=== PATIENT | female | born 1950 | race Two or more races ===

== ENCOUNTER 2020-06-26 09:57 | Outpatient (REF) | payer MEDICARE, SELFPAY ==
--- NOTE | 2020-06-26 | XR_ITS ---
EXAMINATION: XR LUMBOSACRAL SPINE WITH OBLIQUES CLINICAL INFORMATION: Lumbago with left sciatica. COMPARISON: Radiographs lumbar spine 05/11/2018 TECHNIQUE: The lumbar spine is imaged in 5 views FINDINGS: There is normal lumbar segmentation with 5 nonrib-bearing lumbar vertebrae. There is gentle levocurvature which may be positional. There is normal lumbar lordosis. Again, there are postoperative changes consistent with prior laminectomy L4-S1 with solid bridging bone effusion posterior elements. There is discal calcification L4-L5 and L5-S1 with mild stable disc narrowing. There is no interval vertebral compression or spondylolisthesis or interval focal disc narrowing. No destructive process. There is anterior vertebral spurring again seen L3-L4. The oblique view show no pars defects. The SI joints and visualized sacrum are unremarkable. IMPRESSION: 1. Postsurgical changes L4-S1. No acute bony abnormality. 2. No vertebral compression, spondylolisthesis, destructive process.
--- NOTE | 2020-06-26 | XR_ITS ---
EXAMINATION: XR HIP, LEFT CLINICAL INFORMATION: Pain hip. COMPARISON: Radiographs left hip 04/12/2017 TECHNIQUE: Two views of the left hip. FINDINGS: There is no fracture or dislocation or destructive process. No hip joint narrowing or erosive change or visible chondrocalcinosis. Left SI joint is unremarkable. There are chronic postoperative changes lower lumbar spine. IMPRESSION: Unremarkable left hip.
== END 2020-06-26 09:58 | disposition home or self-care (01) ==
LOC: HO.XRAY 09:57
PROVIDERS: PCP Internal Medicine; Visit Provider Internal Medicine
DX: M25.551 Pain in right hip (principal); M54.42 Lumbago with sciatica, left side
CPT/HCPCS: 72110; 73502

== ENCOUNTER 2021-01-02 09:11 | Outpatient (REF) | payer MEDICARE, SELFPAY ==
[2021-01-02 10:00] LABS: MANUAL DIFF FLAG NO
[2021-01-02 10:23] LABS: Estimated Average Glucose 146 mg/dL; Hemoglobin A1c % 6.7 %
[2021-01-02 10:25] LABS: Basophils Absolute Auto 0.1 X10*3/uL (0.0-0.2); Basophils Percent Auto 0.6 % (0-2); Eosinophils Absolute Auto 0.2 X10*3/uL (0.0-0.4); Eosinophils Percent Auto 2.3 % (0-4); Hematocrit 37.3 % (37-47); Hemoglobin 12.3 g/dl (12.0-16.0); Imm Gran Abs Auto 0.02 X10*3/uL (0.00-0.03); Imm Gran Pct Auto 0.2 % (0.0-0.4); Lymphocytes Absolute Auto 3.3 X10*3/uL (1.2-4.9); Lymphocytes Percent Auto 38.5 % (20-40); Mean Corpuscular Hemoglobin 32.1 pg (27.0-33.0); Mean Corpuscular Volume 97.4 fL (80-98); Mean Platelet Volume 10.4 fL (9.4-12.3); Monocytes Absolute Auto 0.6 X10*3/uL (0.1-1.2); Monocytes Percent Auto 6.6 % (2-11); Neutrophils Absolute Auto 4.5 X10*3/uL (2.0-8.3); Neutrophils Percent Auto 51.8 % (45-73); Platelet Count 267 X10*3/uL (160-400); Red Blood Count 3.83 X10*6/uL (4.20-5.50); Red Cell Distribution Width 14.1 % (11.0-16.0); White Blood Count 8.7 X10*3/uL (4.8-10.8)
[2021-01-02 10:33] LABS: Alanine Aminotransferase 12 U/L (0-31); Albumin Level 4.1 g/dL (3.5-5.0); Alkaline Phosphatase 109 U/L (39-117); Anion Gap 13 (12-20); Aspartate Amino Transferase 19 U/L (5-31); Bilirubin Total 0.4 mg/dL (0.0-1.0); Blood Urea Nitrogen 20 mg/dL (9-16); Calcium 9.3 mg/dL (8.4-10.2); Carbon Dioxide 27 mmol/L (22-29); Chloride 105 mmol/L (96-108); Cholesterol 154 mg/dL; Estimated Glomerular Filt Rate > 60; Glucose Fasting 132 mg/dL (60-99); HDL Cholesterol 52 mg/dL; LDL Cholesterol Calculated 82 mg/dl; Potassium 4.4 mmol/L (3.3-5.1); Sodium 141 mmol/L (135-145); Total Protein 7.4 g/dL (6.5-8.0); Triglycerides 101 mg/dL
[2021-01-06 12:47] LABS: Vitamin D 25-OH, D2 <4 ng/mL; Vitamin D 25-OH, D3 33 ng/mL; Vitamin D 25-OH, Total 33 ng/mL (30-100)
== END 2021-01-02 09:12 | disposition home or self-care (01) ==
LOC: HO.LAB 09:11
PROVIDERS: PCP Internal Medicine; Visit Provider Internal Medicine
DX: E11.9 Type 2 diabetes mellitus without complications (principal); E78.5 Hyperlipidemia, unspecified; E55.9 Vitamin D deficiency, unspecified; M51.36 Other intervertebral disc degeneration, lumbar region
CPT/HCPCS: 36415; 80053; 80061; 82306; 83036; 85025

== ENCOUNTER 2021-01-28 09:48 | Outpatient (REF) | payer MEDICARE, SELFPAY | END 2021-01-28 09:49 | disposition home or self-care (01) | LOC: HO.LAB 09:48 | PROVIDERS: PCP Internal Medicine; Visit Provider Internal Medicine | DX: Z20.822 Contact with and (suspected) exposure to COVID-19 (principal) | CPT/HCPCS: C9803; U0003; U0005 ==

== ENCOUNTER 2021-03-24 11:23 | Emergency (ER) | payer MEDICARE, SELFPAY ==
--- NOTE | ~2021-03-24 | CT_ITS ---
EXAMINATION: CT HEAD WITHOUT CONTRAST CLINICAL INFORMATION: Headache COMPARISON: None TECHNIQUE: Contiguous axial imaging was performed from the skull base to vertex without intravenous administration of contrast. This CT examination was performed using dose optimization techniques as appropriate, variously including the following: *Automated exposure control *Adjustment of mA and/or kV according to patient size (this includes techniques or standardized protocols for targeted exams where dose is matched to indication/reason for exam; i.e. extremities or head) *Use of iterative reconstruction technique DLP: 678 mGy-cm FINDINGS: There is right frontoparietal isodense subdural hematoma with acute hemorrhagic component in the dependent portion along anterior and posterior midline falx and right posterior convexity. There is effacement of the cortical sulci. There is minimal right to left midline shift measuring 3 mm hemorrhage is seen within the lateral ventricles. The left extra axial intra-axial space is normal. The lateral ventricles are symmetrical in size and configuration with mild mass effect on the right lateral ventricle. There is no acute infarct in evolution. Bone windows reveal no calvarial abnormality. There is no scalp soft tissue abnormality. Bilateral paranasal sinuses and mastoid air cells are well-aerated. CT/CT head/brain wo con IMPRESSION: Right frontoparietal isodense subdural hematoma suggestive of a subacute onset. There is acute hemorrhagic component seen along the anterior and posterior right para midline falx. There is mild right to left midline shift with mild mass effect on the right lateral ventricle. There is no intraparenchymal bleed. There is no acute infarct.
[2021-03-24 12:10] VITALS: BP 151/80; PULSE 66; RESP 18; TEMP 36.6; O2SAT 99; BMI 22.6
--- NOTE | 2021-03-24 13:33 | ED_ITS ---
HPI - Headache General Chief Complaint: Headache Stated Complaint: headache Time Seen by Provider: 03/24/21 13:33 Source: patient History of Present Illness HPI Narrative: this is 70 years old female presented to the emergency department with a chief complaint of a headache x3 weeks. About 3 weeks ago she had a trivial injury of the head with the car door. Patient denies any nausea vomiting MD elicited complaint: headache Pertinent past history: recent trauma Onset (ago): week(s) (3) Onset description: gradually Location: right and temporal Severity: moderate Quality & Timing: aching Exacerbating factors: none Relieving factors: nothing Related Data Home Medications Medication Instructions Recorded Confirmed cholecalciferol (vitamin D3) 25 25 mcg PO DAILY 10/15/20 01/28/21 mcg (1,000 unit) capsule Previous Rx's Medication Instructions Recorded mirtazapine 7.5 mg tablet 7.5 mg PO BEDTIME #90 tab 01/10/21 divalproex 125 mg tablet,delayed 125 mg PO DAILY 90 Days #90 tab 01/28/21 release pioglitazone 30 mg tablet 30 mg PO DAILY #90 tab 02/27/21 oxycodone-acetaminophen 5 mg-325 1 tab PO BID 28 Days #56 tab 03/18/21 mg tablet losartan 50 mg tablet 50 mg PO DAILY #90 tab 03/21/21 Allergies Allergy/AdvReac Type Severity Reaction Status Date / Time ibuprofen [IBUPROFEN] Allergy Intermediate NAUSEA & Verified 01/28/21 09:28 VOMITING, involuntary movements lisinopril Allergy Intermediate stomach Verified 01/28/21 09:28 upset, abd pain meloxicam Allergy Intermediate involuntary Verified 01/28/21 09:28 movements metformin Allergy Intermediate diarrhea Verified 01/28/21 09:28 oseltamivir [From TAMIFLU] Allergy Intermediate NAUSEA & Verified 01/28/21 09:28 VOMITING tizanidine Allergy Intermediate involuntary Verified 01/28/21 09:28 movements ketorolac [From TORADOL] AdvReac Mild HYPERACTIVE Verified 01/28/21 09:28 MUSCLE TREMORS Review of Systems Review of Systems: Yes all other systems are reviewed and are negative Cardiovascular: Cardiovascular: Reports no additional cardiovascular complaints Respiratory: Respiratory: Reports no additional respiratory complaints Gastrointestinal: Gastrointestinal: Denies abdominal pain PMFSH Past Medical History Attestation statement: The following information was validated with the patient. Medical History Diabetes mellitus Dyslipidemia Essential hypertension Lumbar degenerative disc disease Seizures Surgical History Back pain with history of spinal surgery History of cataract surgery History of laparoscopic cholecystectomy Family History Family History Father Medical history unknown Mother Ovarian cancer Hypertension Maternal Aunt Breast cancer Social History Social History Alcohol intake: never Patient Tobacco Use Status: Never used Tobacco Use of substances other than those prescribed or required for medical reasons: No Advance Directives: No Advance Directives Information Provided: No Physical Exam Vital Signs: Vital Signs: Last Vital Signs Temp 97.8 F 03/24/21 12:10 Pulse 66 03/24/21 13:43 Resp 18 03/24/21 13:43 BP 237/110 H 03/24/21 13:43 Pulse Ox 98 03/24/21 13:43 Body Mass Index 22.6 Const: General: cooperative and healthy appearing Orientation/consciousness: oriented to person, oriented to place, oriented to time and patient oriented x3 HENMT: Head: Yes normal to inspection and Yes No palpable skull fracture present Eyes: General: appearance normal, both eyes and all related structures Visual Jarrett: normal visual jarrett by confrontation Neck: Neck: Yes normal visual inspection and Yes full ROM Chest: Chest palpation & inspection: normal inspection of the chest and normal palpation of entire chest wall Resp: Effort & Inspection: normal respiratory effort and able to speak in complete sentences Cardio: Jugular venous distension: no JVD Rate: regular rate GI: Inspection: Yes normal to inspection and No Abdominal wall edema Palpation (GI): nontender and no guarding Skin: General skin exam: no rashes or lesions noted, elasticity normal and turgor normal Neuro: General: oriented to person, oriented to place, oriented to time and patient oriented x3 Course Reevaluation(s) Reevaluation #1: patient as a subdural hematoma I spoke with [facility] neurosurgical service the patient was accepted in transfer MDM - Headache Lab Data Result diagrams: 03/24/21 13:42 03/24/21 13:42 Labs: Lab Results 03/24/21 03/24/21 03/24/21 Range/Units 13:42 13:42 13:42 WBC 11.1 H (4.8-10.8) X10*3/uL RBC 3.60 L (4.20-5.50) X10*6/uL Hgb 11.4 L (12.0-16.0) g/dl Hct 35.1 L (37-47) % MCV 97.5 (80-98) fL MCH 31.7 (27.0-33.0) pg MCHC 32.5 (31.0-35.0) g/dl RDW 13.7 (11.0-16.0) % Plt Count 293 (160-400) X10*3/uL MPV 9.8 (9.4-12.3) fL Immature Gran % (Auto) 0.3 (0.0-0.4) % Neut % (Auto) 50.1 (45-73) % Lymph % (Auto) 40.8 H (20-40) % [place] % (Auto) 6.0 (2-11) % Eos % (Auto) 2.3 (0-4) % Baso % (Auto) 0.5 (0-2) % Lymph # (Auto) 4.5 (1.2-4.9) X10*3/uL [place] # (Auto) 0.7 (0.1-1.2) X10*3/uL Eos # (Auto) 0.3 (0.0-0.4) X10*3/uL Baso # (Auto) 0.1 (0.0-0.2) X10*3/uL Abs Immat Gran (auto) 0.03 (0.00-0.03) X10*3/uL Absolute Neuts (auto) 5.6 (2.0-8.3) X10*3/uL Absolute Nucleated RBC 0.000 (0.0-0.012) X10*3/uL Nucleated RBC % (auto) 0.0 (0.0-0.2) /100WBC PT 12.0 (10.8-13.0) SEC INR 1.0 (0.9-1.1) APTT 39.4 H (24.1-38.0) SEC Sodium 142 (135-145) mmol/L Potassium 3.6 (3.3-5.1) mmol/L Chloride 109 H (96-108) mmol/L Carbon Dioxide 27 (22-29) mmol/L Anion Gap 10 L (12-20) BUN 17 H (9-16) mg/dL Creatinine 0.87 (0.5-1.4) mg/dL Estim Creat Clear Calc 40.4 Estimated GFR > 60 Random Glucose 120 H (60-115) mg/dL Calcium 9.4 (8.4-10.2) mg/dL Total Bilirubin < 0.2 (0.0-1.0) mg/dL AST 19 (5-31) U/L ALT 11 (0-31) U/L Alkaline Phosphatase 108 (39-117) U/L Total Protein 7.6 (6.5-8.0) g/dL Albumin 4.2 (3.5-5.0) g/dL Critical Care Time Critical Care Time Critical Care Time: Yes Total Critical Care Time: 30 Attestation: time spent with the patient, family, arranging transfer Discharge Plan Discharge Prescriptions: No Action mirtazapine 7.5 mg tablet 7.5 mg PO BEDTIME Qty: 90 RF: 2 pioglitazone 30 mg tablet 30 mg PO DAILY Qty: 90 RF: 3 oxycodone-acetaminophen 5-325 mg tablet 1 tab PO BID 28 Days Qty: 56 RF: 0 losartan 50 mg tablet 50 mg PO DAILY Qty: 90 RF: 2 cholecalciferol (vitamin D3) 25 mcg (1,000 unit) capsule 25 mcg PO DAILY RF: 0 divalproex [Depakote] 125 mg tablet,delayed release (DR/EC) 125 mg PO DAILY 90 Days Qty: 90 RF: 1
[2021-03-24 13:43] VITALS: BP 237/110; PULSE 66; RESP 18; O2SAT 98
[2021-03-24 13:51] LABS: MANUAL DIFF FLAG NO
[2021-03-24 13:55] LABS: Basophils Absolute Auto 0.1 X10*3/uL (0.0-0.2); Basophils Percent Auto 0.5 % (0-2); Eosinophils Absolute Auto 0.3 X10*3/uL (0.0-0.4); Eosinophils Percent Auto 2.3 % (0-4); Hematocrit 35.1 % (37-47); Hemoglobin 11.4 g/dl (12.0-16.0); Imm Gran Abs Auto 0.03 X10*3/uL (0.00-0.03); Imm Gran Pct Auto 0.3 % (0.0-0.4); Lymphocytes Absolute Auto 4.5 X10*3/uL (1.2-4.9); Lymphocytes Percent Auto 40.8 % (20-40); Mean Corpuscular HGB Conc 32.5 g/dl (31.0-35.0); Mean Corpuscular Hemoglobin 31.7 pg (27.0-33.0); Mean Corpuscular Volume 97.5 fL (80-98); Mean Platelet Volume 9.8 fL (9.4-12.3); Monocytes Absolute Auto 0.7 X10*3/uL (0.1-1.2); Neutrophils Absolute Auto 5.6 X10*3/uL (2.0-8.3); Neutrophils Percent Auto 50.1 % (45-73); Platelet Count 293 X10*3/uL (160-400); Red Cell Distribution Width 13.7 % (11.0-16.0); White Blood Count 11.1 X10*3/uL (4.8-10.8)
[2021-03-24 14:00] LABS: Partial Thromboplastin Time 39.4 SEC (24.1-38.0)
[2021-03-24 14:18] LABS: Alanine Aminotransferase 11 U/L (0-31); Albumin Level 4.2 g/dL (3.5-5.0); Alkaline Phosphatase 108 U/L (39-117); Anion Gap 10 (12-20); Aspartate Amino Transferase 19 U/L (5-31); Blood Urea Nitrogen 17 mg/dL (9-16); Calcium 9.4 mg/dL (8.4-10.2); Carbon Dioxide 27 mmol/L (22-29); Chloride 109 mmol/L (96-108); Creatinine Clr Calc Pharmacy 40.4; Estimated Glomerular Filt Rate > 60; Glucose Random 120 mg/dL (60-115); Potassium 3.6 mmol/L (3.3-5.1); Sodium 142 mmol/L (135-145); Total Protein 7.6 g/dL (6.5-8.0)
[2021-03-24 14:40] VITALS: BP 207/91; PULSE 73; RESP 10; O2SAT 100
[2021-03-24] MEDS: oxyCODONE HCl Immed Release 5 MG TABLET PO (14:41)
[2021-03-24 14:42] VITALS: BP 207/91; PULSE 73
[2021-03-24] MEDS: cloNIDine HCL 0.1 MG TABLET PO (14:42)
--- NOTE | 2021-03-24 15:45 | PC.NURSE ---
CALLED FOR REPORT AT [facility], EXPECTING CALL BACK.
[2021-03-24 15:58] VITALS: BP 186/100; PULSE 78; RESP 12; O2SAT 98
[2021-03-24 17:00] LABS: Bilirubin Total 0.3 mg/dL (0.0-1.0)
== END 2021-03-24 16:30 | disposition short-term general hospital (02) ==
PROVIDERS: Emergency Provider Emergency Medicine; PCP Internal Medicine
DX: S06.5X0A Traumatic subdural hemorrhage without loss of consciousness, initial encounter (principal); I10 Essential (primary) hypertension; E11.9 Type 2 diabetes mellitus without complications; Z79.899 Other long term (current) drug therapy; W22.8XXA Striking against or struck by other objects, initial encounter; Y93.9 Activity, unspecified; Y92.810 Car as the place of occurrence of the external cause; Y99.9 Unspecified external cause status
CPT/HCPCS: 36415; 70450; 80053; 85025; 85610; 85730; 99285; 99291

== ENCOUNTER 2021-05-22 08:24 | Outpatient (REF) | payer MEDICARE, SELFPAY ==
[2021-05-22 08:52] LABS: MANUAL DIFF FLAG NO
[2021-05-22 08:58] LABS: Basophils Absolute Auto 0.1 X10*3/uL (0.0-0.2); Basophils Percent Auto 0.7 % (0-2); Eosinophils Absolute Auto 0.3 X10*3/uL (0.0-0.4); Eosinophils Percent Auto 3.6 % (0-4); Hemoglobin 11.4 g/dl (12.0-16.0); Imm Gran Abs Auto 0.02 X10*3/uL (0.00-0.03); Imm Gran Pct Auto 0.3 % (0.0-0.4); Lymphocytes Absolute Auto 3.4 X10*3/uL (1.2-4.9); Lymphocytes Percent Auto 46.7 % (20-40); Mean Corpuscular HGB Conc 32.6 g/dl (31.0-35.0); Mean Corpuscular Hemoglobin 31.5 pg (27.0-33.0); Mean Corpuscular Volume 96.7 fL (80-98); Monocytes Absolute Auto 0.4 X10*3/uL (0.1-1.2); Monocytes Percent Auto 5.6 % (2-11); Neutrophils Absolute Auto 3.1 X10*3/uL (2.0-8.3); Neutrophils Percent Auto 43.1 % (45-73); Platelet Count 279 X10*3/uL (160-400); Red Blood Count 3.62 X10*6/uL (4.20-5.50); Red Cell Distribution Width 14.9 % (11.0-16.0); White Blood Count 7.2 X10*3/uL (4.8-10.8)
[2021-05-22 09:37] LABS: Valproate 15.8 mcg/mL (50.0-100.0)
[2021-05-22 09:41] LABS: Alanine Aminotransferase 10 U/L (0-31); Alkaline Phosphatase 95 U/L (39-117); Anion Gap 9 (12-20); Aspartate Amino Transferase 18 U/L (5-31); Bilirubin Total 0.4 mg/dL (0.0-1.0); Blood Urea Nitrogen 15 mg/dL (9-16); Calcium 9.3 mg/dL (8.4-10.2); Carbon Dioxide 27 mmol/L (22-29); Chloride 111 mmol/L (96-108); Cholesterol 169 mg/dL; Estimated Glomerular Filt Rate > 60; Glucose Fasting 106 mg/dL (60-99); HDL Cholesterol 52 mg/dL; LDL Cholesterol Calculated 100 mg/dl; Potassium 3.8 mmol/L (3.3-5.1); Sodium 143 mmol/L (135-145); Total Protein 7.1 g/dL (6.5-8.0); Triglycerides 88 mg/dL
[2021-05-22 10:43] LABS: Creatinine Urine 168.69 mg/dL; Microalbum/Creatinine Ratio Ur 9.4 ug/mg cr
[2021-05-26 12:41] LABS: Vitamin D 25-OH, D2 <4 ng/mL; Vitamin D 25-OH, D3 35 ng/mL; Vitamin D 25-OH, Total 35 ng/mL (30-100)
== END 2021-05-22 08:25 | disposition home or self-care (01) ==
LOC: HO.LAB 08:24
PROVIDERS: PCP Internal Medicine; Visit Provider Internal Medicine
DX: R56.9 Unspecified convulsions (principal); E55.9 Vitamin D deficiency, unspecified; E11.9 Type 2 diabetes mellitus without complications; D64.9 Anemia, unspecified; E78.5 Hyperlipidemia, unspecified
CPT/HCPCS: 36415; 80053; 80061; 80164; 82043; 82306; 85025

== ENCOUNTER → 2021-06-04 09:00 | Outpatient (REF) | payer MEDICARE, SELFPAY ==
--- NOTE | 2021-06-04 09:09 | ECG_ITS ---
Test Reason : CHEST PAIN Blood Pressure : / mmHG Vent. Rate : 058 BPM Atrial Rate : 058 BPM P-R Int : 154 ms QRS Dur : 078 ms QT Int : 438 ms P-R-T Axes : 049 -01 005 degrees QTc Int : 429 ms Sinus bradycardia Minimal voltage criteria for LVH, may be normal variant ( R in aVL ) Borderline ECG When compared with ECG of 14-MAY-2019 13:02, No significant change was found Referred By: Lena Cheung Electronically Signed By:JESENIA BRAVO
== END ==
LOC: HO.CARD 09:00
PROVIDERS: PCP Internal Medicine; Visit Provider Internal Medicine
DX: R07.9 Chest pain, unspecified (principal)
CPT/HCPCS: 93005

== ENCOUNTER 2021-08-15 11:21 | Emergency (ER) | payer MEDICARE, SELFPAY ==
--- NOTE | ~2021-08-15 | CT_ITS ---
EXAMINATION: CT HEAD WITHOUT CONTRAST CLINICAL INFORMATION: Right-sided headache x2 weeks. Right subdural 02/2021. Rule out bleed. COMPARISON: CT head 03/24/2021 TECHNIQUE: Contiguous axial imaging was performed from the skull base to vertex without intravenous administration of contrast. This CT examination was performed using dose optimization techniques as appropriate, variously including the following: *Automated exposure control *Adjustment of mA and/or kV according to patient size (this includes techniques or standardized protocols for targeted exams where dose is matched to indication/reason for exam; i.e. extremities or head) *Use of iterative reconstruction technique DLP: 695 mGy-cm FINDINGS: There is a subtle hypoattenuating right frontal subdural collection which measures approximately 25 Hounsfield units may represent late subacute to chronic subdural hemorrhage. There is minimal to no mass effect associated with this collection. There is no other evidence of acute intracranial hemorrhage or territorial infarction. No abnormal mass effect or midline shift is seen. Webb to white matter differentiation is well preserved. The ventricles are normal in size. There is no abnormal attenuation within the brain parenchyma. There is a [place] hole in the right temporal bone which is new from the prior. There is chronic mild thinning of the right greater sphenoid which is unchanged from multiple prior studies. There are degenerative changes of the right greater than left temporomandibular joints.. The mastoid air cells and visualized portions of the paranasal sinuses are well aerated. CT/CT head/brain wo con IMPRESSION: Subtle hypoattenuating fluid collection to the right of the falx overlying the right frontal lobe measuring approximately 25 Hounsfield units attenuation. This does correspond with the region of previously seen subdural hematoma from the prior study of 03/24/2021. While this could possibly represent degenerating blood products from the previous hemorrhage, a recurrent late subacute to chronic hemorrhage is a consideration as well. Findings were communicated with Cristian LAGUNA, by Tapan Valentin M.D. at approximately 1553 hours.
[2021-08-15 11:56] VITALS: BP 198/90; PULSE 72; RESP 8; TEMP 36.7; O2SAT 98; BMI 24.6
[2021-08-15 14:29] VITALS: BP 209/109; PULSE 72; RESP 20; TEMP 36.7
[2021-08-15 14:41] LABS: MANUAL DIFF FLAG NO
[2021-08-15 14:42] LABS: Basophils Absolute Auto 0.1 X10*3/uL (0.0-0.2); Basophils Percent Auto 0.6 % (0-2); Eosinophils Absolute Auto 0.2 X10*3/uL (0.0-0.4); Eosinophils Percent Auto 2.4 % (0-4); Hematocrit 35.6 % (37.0-47.0); Hemoglobin 11.8 g/dl (12.0-16.0); Imm Gran Abs Auto 0.02 X10*3/uL (0.00-0.03); Imm Gran Pct Auto 0.2 % (0.0-0.4); Lymphocytes Absolute Auto 4.1 X10*3/uL (1.2-4.9); Lymphocytes Percent Auto 40.7 % (20-40); Mean Corpuscular HGB Conc 33.1 g/dl (31.0-35.0); Mean Corpuscular Hemoglobin 32.1 pg (27.0-33.0); Mean Corpuscular Volume 96.7 fL (80.0-98.0); Mean Platelet Volume 9.9 fL (9.4-12.3); Monocytes Absolute Auto 0.6 X10*3/uL (0.1-1.2); Monocytes Percent Auto 5.4 % (2-11); Neutrophils Absolute Auto 5.2 x10*3/uL (2.0-8.3); Neutrophils Percent Auto 50.7 % (45-73); Platelet Count 291 X10*3/uL (160-400); Red Blood Count 3.68 X10*6/uL (4.20-5.50); Red Cell Distribution Width 13.9 % (11.0-16.0); White Blood Count 10.2 X10*3/uL (4.8-10.8)
[2021-08-15] MEDS: HYDROmorphone HCl 0.5 MG/0.5 ML SYRINGE IVPUSH (14:46)
[2021-08-15] MEDS: Metoclopramide HCl 10 MG/2 ML VIAL IVPUSH (14:46)
[2021-08-15] MEDS: diphenhydrAMINE HCL 50 MG/ML VIAL 25 MG IVPUSH (14:46)
[2021-08-15 14:50] LABS: Partial Thromboplastin Time 39.6 SEC (24.1-38.0)
[2021-08-15 15:03] LABS: Alanine Aminotransferase 14 U/L (0-31); Alkaline Phosphatase 110 U/L (39-117); Anion Gap 12 (12-20); Aspartate Amino Transferase 19 U/L (5-31); Bilirubin Total 0.3 mg/dL (0.0-1.0); Blood Urea Nitrogen 15 mg/dL (9-16); Calcium 9.1 mg/dL (8.4-10.2); Carbon Dioxide 26 mmol/L (22-29); Chloride 108 mmol/L (96-108); Creatinine Clr Calc Pharmacy 61.2; Estimated Glomerular Filt Rate > 60; Glucose Random 109 mg/dL (60-115); Potassium 3.6 mmol/L (3.3-5.1); Sodium 142 mmol/L (135-145); Total Protein 7.3 g/dL (6.5-8.0)
[2021-08-15 15:23] VITALS: BP 164/78
--- NOTE | 2021-08-15 17:26 | ED_ITS ---
HPI - Headache General Chief Complaint: Headache Stated Complaint: rt side head pain Time Seen by Provider: 08/15/21 14:08 Source: patient Mode of arrival: ambulatory Limitations: language barrier (Chilean speaking only) History of Present Illness HPI Narrative: 71-year-old female who presents emergency department for evaluation right-sided headache x2 weeks. The patient was seen here in the emergency department on April 23, 2021 for headache times 3 weeks and was found to have a subdural hematoma transferred to [facility] where she had it drained. The patient states she has had 1 follow-up visit with her neurosurgeon and told that she was fine and did not need any further management. Patient states over the past 2 weeks. The patient cannot describe the character of the pain but she states that the pain is intermittent and is 9/10 at its worst. She denied any associated nausea, vomiting, weakness, numbness, loss of bowel or bladder control. She has been taking oxycodone with no relief for pain. she denied fever, chills, cough, rhinorrhea, neck pain, chest pain, shortness of breath, abdominal pain, frequency, urgency or dysuria. Related Data Home Medications Medication Instructions Recorded Confirmed cholecalciferol (vitamin D3) 25 25 mcg PO DAILY 10/15/20 06/03/21 mcg (1,000 unit) capsule Previous Rx's Medication Instructions Recorded pioglitazone 30 mg tablet 30 mg PO DAILY #90 tab 02/27/21 losartan 50 mg tablet 50 mg PO DAILY #90 tab 03/21/21 mirtazapine 15 mg tablet 15 mg PO BEDTIME 90 Days #90 tab 04/05/21 lorazepam 0.5 mg tablet 0.5 mg PO BEDTIME PRN 20 Days #20 06/03/21 tab sumatriptan succinate 25 mg tablet 25 mg PO Q2-4H PRN 30 Days #9 tab 06/14/21 divalproex 125 mg tablet,delayed 125 mg PO DAILY 90 Days #90 tab 07/22/21 release (Depakote) oxycodone-acetaminophen 5 mg-325 1 tab PO BID 28 Days #56 tab 07/22/21 mg tablet metoclopramide HCl 10 mg tablet 10 mg PO Q6H PRN #14 tab 08/15/21 (Reglan) Allergies Allergy/AdvReac Type Severity Reaction Status Date / Time ibuprofen [IBUPROFEN] Allergy Intermediate NAUSEA & Verified 08/15/21 11:56 VOMITING, involuntary movements lisinopril Allergy Intermediate stomach Verified 08/15/21 11:56 upset, abd pain meloxicam Allergy Intermediate involuntary Verified 08/15/21 11:56 movements metformin Allergy Intermediate diarrhea Verified 08/15/21 11:56 oseltamivir [From TAMIFLU] Allergy Intermediate NAUSEA & Verified 08/15/21 11:56 VOMITING tizanidine Allergy Intermediate involuntary Verified 08/15/21 11:56 movements ketorolac [From TORADOL] AdvReac Mild HYPERACTIVE Verified 08/15/21 11:56 MUSCLE TREMORS Review of Systems Review of Systems: Yes all other systems are reviewed and are negative [facility] Past Medical History Medical History Diabetes mellitus Dyslipidemia Essential hypertension Insomnia Lumbar degenerative disc disease Seizures Subdural hematoma Surgical History Back pain with history of spinal surgery H/O brain surgery History of cataract surgery History of laparoscopic cholecystectomy Family History Family History Father Medical history unknown Mother Ovarian cancer Hypertension Maternal Aunt Breast cancer Social History Social History Housing: House Alcohol intake: never Patient Tobacco Use Status: Never used Tobacco e-Cigarette/Vaping Use: Never Used Second Hand Smoke Exposure: No Use of substances other than those prescribed or required for medical reasons: No Advance Directives: No service: No Current occupational status: retired Physical Exam Vital Signs: Vital Signs: Last Vital Signs Temp 98.0 F 08/15/21 14:29 Pulse 72 08/15/21 14:29 Resp 20 08/15/21 14:29 BP 164/78 H 08/15/21 15:23 Pulse Ox 98 08/15/21 11:56 Body Mass Index 24.6 Const: General: cooperative and no acute distress Orientation/consciousness: oriented to person and oriented to place Limitations: no limitations HENMT: Head: Yes normal to inspection, Yes normocephalic and Yes atraumatic Ears: external ears normal General nose exam: Normal external nose present Face and sinus: Yes normal facial exam Mouth: Normal oral and palatal mucosa present Throat: Yes posterior oropharynx normal Eyes: General: appearance normal, both eyes and all related structures Pupils: Equal, round and reactive pupils present Neck: Neck: Yes normal visual inspection, Yes no lymphadenopathy, Yes trachea midline and Yes supple Chest: Chest palpation & inspection: normal inspection of the chest and normal palpation of entire chest wall Resp: Effort & Inspection: normal respiratory effort and able to speak in complete sentences Auscultation: clear to auscultation bilaterally Cardio: Rate: regular rate Rhythm: regular rhythm Heart sounds: S1 normal heart sound present, S2 normal heart sound present and no murmurs GI: Inspection: Yes normal to inspection Palpation (GI): Soft to palpation, nontender and no guarding Auscultation: normal bowel sounds : General: Yes no CVA tenderness Back/Spine/Pelvis: Back: no CVA tenderness Skin: General skin exam: no rashes or lesions noted Neuro: General: oriented to person and oriented to place Cranial nerves: Yes CN's II-XII intact bilaterally and Yes Equal, round and reactive pupils present Cognition (Neuro): normal cognition Motor exam (neuro): 5/5 motor strength present throughout Extrem: General: Yes normal to inspection Psych: Appearance: grossly normal Speech and movement: Normal speech and movement present Affect: normal affect Attitude: cooperative Thought process: Normal thought process present Thought content: Normal thought content present Course Course Course Narrative: 71-year-old female with a history subdural hematoma on 03/24/2021 1st diagnosed here and then evacuated at [facility] who presents emergency department for evaluation of 2 weeks of intermittent, diffuse, severe headache 9 out 10. The patient's physical examination was unremarkable. I did order a laboratory evaluation to include CBC, CMP, PT/INR, PTT and CT scan of the brain. Patient's headache was treated with Dilaudid 0.5 mg IV, Benadryl 25 mg IV and her regular and 10 mg IV. 1737: Laboratory evaluation: CBC revealed mild anemia with an H&H of 11.8 and 35.6, consistent with her baseline. PT/ INR were normal. PTT was elevated at 39.6. CMP was normal. CT scan of the brain without IV contrast revealed subtle hypo to any awaiting fluid collection to the right of falx overlying the right frontal lobe. This does correspond with the region of previous we seen subdural hematoma from the prior study. The differential from the radiologist was possible degenerating blood products verses a recurring late subacute or chronic hemorrhage. 1758: Patient is feeling significantly better after the above treatment. The patient will be discharged home with the following regimen every 6 hours for her headaches: Reglan 10 mg orally, Benadryl 50 mg orally, extra- strength Tylenol 1000 mg orally. She is also given a prescription for oxycodone 5 mg every 4-6 hours as needed for pain not relieved by this regimen. She was advised to follow-up with her neurosurgeon in [address] to repeat her CT scan. MDM - Headache Lab Data Result diagrams: 08/15/21 14:37 08/15/21 14:37 Labs: Lab Results 08/15/21 08/15/21 08/15/21 Range/Units 14:37 14:37 14:37 WBC 10.2 (4.8-10.8) X10*3/uL RBC 3.68 L (4.20-5.50) X10*6/uL Hgb 11.8 L (12.0-16.0) g/dl Hct 35.6 L (37.0-47.0) % MCV 96.7 (80.0-98.0) fL MCH 32.1 (27.0-33.0) pg MCHC 33.1 (31.0-35.0) g/dl RDW 13.9 (11.0-16.0) % Plt Count 291 (160-400) X10*3/uL MPV 9.9 (9.4-12.3) fL Immature Gran % (Auto) 0.2 (0.0-0.4) % Neut % (Auto) 50.7 (45-73) % Lymph % (Auto) 40.7 H (20-40) % [place] % (Auto) 5.4 (2-11) % Eos % (Auto) 2.4 (0-4) % Baso % (Auto) 0.6 (0-2) % Lymph # (Auto) 4.1 (1.2-4.9) X10*3/uL [place] # (Auto) 0.6 (0.1-1.2) X10*3/uL Eos # (Auto) 0.2 (0.0-0.4) X10*3/uL Baso # (Auto) 0.1 (0.0-0.2) X10*3/uL Abs Immat Gran (auto) 0.02 (0.00-0.03) X10*3/uL Absolute Neuts (auto) 5.2 (2.0-8.3) x10*3/uL Absolute Nucleated RBC 0.000 (0.0-0.012) X10*3/uL Nucleated RBC % (auto) 0.0 (0.0-0.2) /100WBC PT 11.0 (9.9-13.0) SEC INR 1.0 (0.9-1.1) APTT 39.6 H (24.1-38.0) SEC Sodium 142 (135-145) mmol/L Potassium 3.6 (3.3-5.1) mmol/L Chloride 108 (96-108) mmol/L Carbon Dioxide 26 (22-29) mmol/L Anion Gap 12 (12-20) BUN 15 (9-16) mg/dL Creatinine 0.63 (0.5-1.4) mg/dL Estim Creat Clear Calc 61.2 Estimated GFR > 60 Random Glucose 109 (60-115) mg/dL Calcium 9.1 (8.4-10.2) mg/dL Total Bilirubin 0.3 (0.0-1.0) mg/dL AST 19 (5-31) U/L ALT 14 (0-31) U/L Alkaline Phosphatase 110 (39-117) U/L Total Protein 7.3 (6.5-8.0) g/dL Albumin 4.0 (3.5-5.0) g/dL Discharge Plan Discharge Clinical Impression: Headache Patient Disposition: Home, Self-Care Instructions: Acute Headache (ED) Additional Instructions: Your blood work was normal. The CT scan of your head without contrast showed significant improvement compared to your CT scan on 03/24/2021 I want you to take the following 3 medications together every 6 hours as needed for headache, nausea or vomiting. Reglan (metoclopramide) in 10 mg, 1 pill Benadryl 25 mg, 2 pills Extra-strength Tylenol 1 g pills, 2 pills. After you take these medications, lie down in a dark quiet room and try to fall asleep. These medications will make you sleepy, do not drive or work after taking these medications. Follow-up with your neurosurgeon in 2 weeks to get a repeat CT scan of your head to make sure that the bleeding is not return. Please return to the emergency department if your symptoms get worse or if you develop any symptoms that are concerning to you. Please review this radiology impression with your neurosurgeon IMPRESSION: Subtle hypoattenuating fluid collection to the right of the falx overlying the right frontal lobe measuring approximately 25 Hounsfield units attenuation. This does correspond with the region of previously seen subdural hematoma from the prior study of 03/24/2021. While this could possibly represent degenerating blood products from the previous hemorrhage, a recurrent late subacute to chronic hemorrhage is a consideration as well. Prescriptions: New metoclopramide HCl [Reglan] 10 mg tablet 10 mg PO Q6H PRN (Reason: nausea and vomiting) Qty: 14 RF: 0 No Action pioglitazone 30 mg tablet 30 mg PO DAILY Qty: 90 RF: 3 losartan 50 mg tablet 50 mg PO DAILY Qty: 90 RF: 2 sumatriptan succinate 25 mg tablet 25 mg PO Q2-4H PRN (Reason: migraine headache) 30 Days Qty: 9 RF: 1 divalproex [Depakote] 125 mg tablet,delayed release (DR/EC) 125 mg PO DAILY 90 Days Qty: 90 RF: 1 oxycodone-acetaminophen 5-325 mg tablet 1 tab PO BID 28 Days Qty: 56 RF: 0 cholecalciferol (vitamin D3) 25 mcg (1,000 unit) capsule 25 mcg PO DAILY RF: 0 lorazepam 0.5 mg tablet 0.5 mg PO BEDTIME PRN (Reason: anxiety) 20 Days Qty: 20 RF: 0 mirtazapine 15 mg tablet 15 mg PO BEDTIME 90 Days Qty: 90 RF: 1
== END 2021-08-15 18:29 | disposition home or self-care (01) ==
PROVIDERS: Emergency Provider Emergency Medicine Emergency Medical Services; PCP Internal Medicine
DX: R51.9 Headache, unspecified (principal); D64.9 Anemia, unspecified; Z79.899 Other long term (current) drug therapy
CPT/HCPCS: 36415; 70450; 80053; 85025; 85610; 85730; 96374; 96375; 99284; J1170; J1200; J2765

== ENCOUNTER 2021-11-09 08:55 | Emergency (ER) | payer MEDICARE, SELFPAY ==
--- NOTE | ~2021-11-09 | CT_ITS ---
EXAMINATION: CT HEAD WITHOUT CONTRAST CLINICAL INFORMATION: Severe headache COMPARISON: Previous head CT most recent July 2021 TECHNIQUE: Contiguous axial imaging was performed from the skull base to vertex without intravenous administration of contrast. This CT examination was performed using dose optimization techniques as appropriate, variously including the following: *Automated exposure control *Adjustment of mA and/or kV according to patient size (this includes techniques or standardized protocols for targeted exams where dose is matched to indication/reason for exam; i.e. extremities or head) *Use of iterative reconstruction technique DLP: 652 mGy-cm FINDINGS: There is low-attenuation seen adjacent to the right side of the falx cerebri and right frontal lobe that appears unchanged. This probably represents chronic changes from old subdural hematoma. There is no evidence of a new extra-axial collection. There is no evidence of intra-axial or extra-axial hemorrhage. Ventricles and extra-axial CSF spaces are prominent suggestive of generalized atrophy. There is nonspecific periventricular white matter disease. No mass, mass effect or infarct is seen. There is a postsurgical defect in the right parietal bone. There is thinning of the right temporal bone. There are degenerative changes at the temporomandibular joints. Visualized paranasal sinuses mastoid air cells and middle ears are clear. No skull fracture is seen. CT/CT head/brain wo con IMPRESSION: No acute intracranial pathology. Stable small triangular-shaped extra-axial low-attenuation adjacent to the right falx cerebri and right frontal lobe probably representing chronic changes from old hematoma. Generalized atrophy and nonspecific periventricular white matter disease.
[2021-11-09 09:01] VITALS: BP 205/87; PULSE 91; RESP 18; TEMP 36.8; O2SAT 96; BMI 24.6
--- NOTE | 2021-11-09 09:11 | ED_ITS ---
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 Patient was transferred to [facility] for neurosurgical intervention. She has been seen here once subsequently for headache with a CT scan that showed resolution of the subdural. Patient tells me she has been following up with Neurosurgery with no issues. She was last seen 2 months ago. Patient tells me she has had some intermittent headaches since then but 2 days ago she bent forward to pick something up and felt a sudden headache in the right side of the head. She denies any fall or trauma. There is no associated dizziness, vision changes, vomiting. Related Data Previous Rx's Medication Instructions Recorded pioglitazone 30 mg tablet 30 mg PO DAILY #90 tab 02/27/21 losartan 50 mg tablet 50 mg PO DAILY #90 tab 03/21/21 lorazepam 0.5 mg tablet 0.5 mg PO BEDTIME PRN 20 Days #20 06/03/21 tab sumatriptan succinate 25 mg tablet 25 mg PO Q2-4H PRN 30 Days #9 tab 06/14/21 metoclopramide HCl 10 mg tablet 10 mg PO Q6H PRN #14 tab 08/15/21 (Reglan) mirtazapine 15 mg tablet 15 mg PO BEDTIME 90 Days #90 tab 10/11/21 cholecalciferol (vitamin D3) 25 25 mcg PO DAILY 90 Days #90 cap 10/25/21 mcg (1,000 unit) capsule divalproex 125 mg tablet,delayed 125 mg PO BID 90 Days #180 tab 10/25/21 release (Depakote) oxycodone-acetaminophen 5 mg-325 1 tab PO BID 28 Days #56 tab 10/25/21 mg tablet Allergies Allergy/AdvReac Type Severity Reaction Status Date / Time ibuprofen [IBUPROFEN] Allergy Intermediate NAUSEA & Verified 11/09/21 09:01 VOMITING, involuntary movements lisinopril Allergy Intermediate stomach Verified 11/09/21 09:01 upset, abd pain meloxicam Allergy Intermediate involuntary Verified 11/09/21 09:01 movements metformin Allergy Intermediate diarrhea Verified 11/09/21 09:01 oseltamivir [From TAMIFLU] Allergy Intermediate NAUSEA & Verified 11/09/21 09:01 VOMITING tizanidine Allergy Intermediate involuntary Verified 11/09/21 09:01 movements ketorolac [From TORADOL] AdvReac Mild HYPERACTIVE Verified 11/09/21 09:01 MUSCLE TREMORS Review of Systems Review of Systems: Yes all other systems are reviewed and are negative Constitutional: Constitutional: Reports no additional constitutional complaints, Denies body ache(s), Denies chills, Denies fever(s), Reports headache(s) and Denies weakness Eyes: Eyes: Reports no additional eye complaints and Denies change in vision ENT: Reports system reviewed and no additional complaints, except as documented, Denies dizziness, Reports headache(s), Denies nasal congestion, Denies nasal discharge and Denies neck pain Cardiovascular: Cardiovascular: Reports no additional cardiovascular complaints, Denies chest pain, Denies leg edema and Denies dyspnea Respiratory: Respiratory: Reports no additional respiratory complaints, Denies cough and Denies dyspnea Gastrointestinal: Gastrointestinal: Reports no additional gastrointestinal complaints, Denies abdominal pain, Denies diarrhea, Denies nausea and Denies vomiting Genitourinary: Genitourinary: Reports no additional female genitourinary complaints and Denies urinary incontinence Musculoskeletal: Musculoskeletal: Reports no additional musculoskeletal complaints, Denies back pain, Denies arthralgias, Denies joint swelling, Denies neck pain, Denies numbness and Denies tingling Integumentary/Breasts: Skin/Breast: Reports system reviewed and no additional complaints, except as docu and Denies rash Neurologic: Reports system reviewed and no additional complaints, except as documented, Denies Abnormal speech present, Denies dizziness, Reports headache(s), Denies numbness, Denies tingling and Denies weakness [facility] Past Medical History Attestation statement: The following information was validated with the patient. Source: old records reviewed and nursing notes reviewed Medical History Diabetes mellitus Dyslipidemia Essential hypertension Headache Insomnia Lumbar degenerative disc disease Seizures Subdural hematoma Surgical History Back pain with history of spinal surgery H/O brain surgery History of cataract surgery History of laparoscopic cholecystectomy Family History Family History Father Medical history unknown Mother Ovarian cancer Hypertension Maternal Aunt Breast cancer Social History Social History Housing: House Alcohol intake: never Patient Tobacco Use Status: Never used Tobacco e-Cigarette/Vaping Use: Never Used Second Hand Smoke Exposure: No Advance Directives: No Advance Directives Information Provided: No service: No Current occupational status: retired Physical Exam Vital Signs: Vital Signs: Last Vital Signs Temp 98.3 F 11/09/21 10:48 Pulse 72 11/09/21 10:48 Resp 19 11/09/21 10:48 BP 190/96 H 11/09/21 10:48 Pulse Ox 100 11/09/21 10:48 BMI result Body Mass Index 24.6 Const: General: cooperative, healthy appearing, comfortable and no acute distress Orientation/consciousness: patient oriented x3 Limitations: no limitations HENMT: Head: Yes normal to inspection Ears: hearing grossly normal bilaterally and TM's normal bilaterally General nose exam: Normal external nose present Face and sinus: Yes normal facial exam Mouth: Normal oral and palatal mucosa present Throat: Yes posterior oropharynx normal, Yes tonsils normal and Yes uvula midline Eyes: General: appearance normal, both eyes and all related structures Pupils: Equal, round and reactive pupils present Neck: Neck: Yes normal visual inspection, Yes full ROM, Yes no lymphadenopathy and Yes no meningeal signs Chest: Chest palpation & inspection: normal inspection of the chest Resp: Effort & Inspection: normal respiratory effort Auscultation: clear to auscultation bilaterally Cardio: Rate: regular rate Rhythm: regular rhythm Peripheral pulses: Peripheral pulses 2+ throughout GI: Inspection: Yes normal to inspection Palpation (GI): Soft to palpation and nontender Auscultation: normal bowel sounds Back/Spine/Pelvis: Thoracic/Lumbar Spine: thoracic and lumbar spine normal to inspection Skin: General skin exam: no rashes or lesions noted Neuro: General: patient oriented x3, no meningeal signs, no focal motor deficits and normal sensation to monofilament Cranial nerves: Yes CN's II-XII intact bilaterally, Yes Equal, round and reactive pupils present, Yes Bilaterall y intact EOM present, Yes Nystagmus not present, Yes Normal facial strength present and Yes Midline tongue present Cognition (Neuro): normal cognition Speech: No Abnormal speech present Gait exam (Neuro): Normal gait present Motor exam (neuro): 5/5 motor strength present throughout Sensory Exam: Normal double simultaneous stimulation for sensation Extrem: General: Yes normal to inspection Course Course Course Narrative: 71-year-old female with a history of a subdural hematoma requiring neurosurgical intervention in February of 2021 here with reports of 2 days of headache after bending down and feeling a pain in the right side of her head. There are no other associated symptoms. Neurological exam is normal. Vitals are stable with the exception of some mild hypertension. Patient tells me she took her blood pressure medications just prior to arrival. She does have home oxycodone which she can take as needed for pain. She took 1 dose of 5 mg prior to arrival. She tells me her pain is now 2/10 and is feeling much improved. Due to history will check CT head. 1040-CT head No acute intracranial pathology. Stable small triangular-shaped extra-axial low-attenuation adjacent to the right falx cerebri and right frontal lobe probably representing chronic changes from old hematoma. Generalized atrophy and nonspecific periventricular white matter disease. -patient is feeling improved and tells me her pain is essentially resolved after her home oxycodone. I gave her reassurance that her CT scan of her head was normal. Recommend she follow up outpatient with her providers. Reviewed worrisome signs and symptoms of when to return to the emergency department. Comfortable discharge home. [facility] - Headache Medical Records Attestation: I reviewed the patient's medical records. Lab Data Attestation: I reviewed the patient's lab results. Imaging Data CT scan - head: Attestation: I personally reviewed and interpreted this imaging study as follows: Radiologist's impression: IMPRESSION: No acute intracranial pathology. Stable small triangular-shaped extra-axial low-attenuation adjacent to the right falx cerebri and right frontal lobe probably representing chronic changes from old hematoma. Generalized atrophy and nonspecific periventricular white matter disease. Discharge Plan Discharge Clinical Impression: Headache Patient Disposition: Home, Self-Care Instructions: Acute Headache (DC) Additional Instructions: Your CT scan was normal with no signs of bleeding Follow-up with your doctors outpatient Prescriptions: No Action pioglitazone 30 mg tablet 30 mg PO DAILY Qty: 90 3RF losartan 50 mg tablet 50 mg PO DAILY Qty: 90 2RF sumatriptan succinate 25 mg tablet 25 mg PO Q2-4H PRN (Reason: migraine headache) 30 Days Qty: 9 1RF Rx Instructions: do not exceed 8 doses per 24 hrs mirtazapine 15 mg tablet 15 mg PO BEDTIME 90 Days Qty: 90 1RF metoclopramide HCl [Reglan] 10 mg tablet 10 mg PO Q6H PRN (Reason: nausea and vomiting) Qty: 14 0RF lorazepam 0.5 mg tablet 0.5 mg PO BEDTIME PRN (Reason: anxiety) 20 Days Qty: 20 0RF divalproex [Depakote] 125 mg tablet,delayed release (DR/EC) 125 mg PO BID 90 Days Qty: 180 1RF cholecalciferol (vitamin D3) 25 mcg (1,000 unit) capsule 25 mcg PO DAILY 90 Days Qty: 90 1RF oxycodone-acetaminophen 5-325 mg tablet 1 tab PO BID 28 Days Qty: 56 0RF Referrals: Lena Alan MD [Primary Care Provider] - 1 week Interventions: ED Discharge Assessment Last Done: 11/09/21 11:36 Discharge Date/Time: 11/09/21 11:37 Print Language: Arabic
[2021-11-09 10:48] VITALS: BP 190/96; PULSE 72; RESP 19; TEMP 36.8; O2SAT 100
== END 2021-11-09 11:37 | disposition home or self-care (01) ==
PROVIDERS: Emergency Provider Emergency Medicine; PCP Internal Medicine
DX: R51.9 Headache, unspecified (principal); E11.9 Type 2 diabetes mellitus without complications; I10 Essential (primary) hypertension; E78.5 Hyperlipidemia, unspecified
CPT/HCPCS: 70450; 99283; 99284

== ENCOUNTER 2022-01-22 08:30 | Outpatient (REF) | payer OTHER, SELFPAY ==
[2022-01-22 08:49] LABS: MANUAL DIFF FLAG NO
[2022-01-22 09:11] LABS: Basophils Absolute Auto 0.1 X10*3/uL (0.0-0.2); Basophils Percent Auto 0.7 % (0-2); Eosinophils Absolute Auto 0.2 X10*3/uL (0.0-0.4); Eosinophils Percent Auto 2.7 % (0-4); Hematocrit 37.1 % (37.0-47.0); Hemoglobin 11.9 g/dl (12.0-16.0); Imm Gran Abs Auto 0.02 X10*3/uL (0.00-0.03); Imm Gran Pct Auto 0.2 % (0.0-0.4); Lymphocytes Absolute Auto 3.4 X10*3/uL (1.2-4.9); Lymphocytes Percent Auto 41.7 % (20-40); Mean Corpuscular HGB Conc 32.1 g/dl (31.0-35.0); Mean Corpuscular Hemoglobin 31.2 pg (27.0-33.0); Mean Corpuscular Volume 97.1 fL (80.0-98.0); Mean Platelet Volume 10.1 fL (9.4-12.3); Monocytes Absolute Auto 0.4 X10*3/uL (0.1-1.2); Monocytes Percent Auto 5.4 % (2-11); Neutrophils Absolute Auto 4.1 x10*3/uL (2.0-8.3); Neutrophils Percent Auto 49.3 % (45-73); Platelet Count 293 X10*3/uL (160-400); Red Blood Count 3.82 X10*6/uL (4.20-5.50); Red Cell Distribution Width 13.8 % (11.0-16.0); White Blood Count 8.2 X10*3/uL (4.8-10.8)
[2022-01-22 09:38] LABS: Alanine Aminotransferase 11 U/L (0-31); Alkaline Phosphatase 112 U/L (39-117); Anion Gap 14 (12-20); Aspartate Amino Transferase 19 U/L (5-31); Bilirubin Total 0.5 mg/dL (0.0-1.0); Blood Urea Nitrogen 17 mg/dL (9-16); Calcium 9.7 mg/dL (8.4-10.2); Carbon Dioxide 25 mmol/L (22-29); Chloride 105 mmol/L (96-108); Cholesterol 156 mg/dL; Estimated Glomerular Filt Rate > 60; Glucose Fasting 120 mg/dL (60-99); HDL Cholesterol 55 mg/dL; Iron 80 mcg/dL (30-160); LDL Cholesterol Calculated 85 mg/dl; Percent Iron Saturation 21 % (15-50); Potassium 4.3 mmol/L (3.3-5.1); Sodium 140 mmol/L (135-145); Total Iron Binding Capacity 373 mcg/dL (228-428); Total Protein 7.2 g/dL (6.5-8.0); Triglycerides 84 mg/dL; Unsaturated Iron Binding 293 ug/dL
[2022-01-22 09:47] LABS: Valproate 14.6 mcg/mL (50.0-100.0)
[2022-01-22 10:27] LABS: Creatinine Urine 201.61 mg/dL; Microalbum/Creatinine Ratio Ur 5.9 ug/mg cr
[2022-01-26 11:16] LABS: Vitamin D 25-OH, D2 <4 ng/mL; Vitamin D 25-OH, D3 35 ng/mL; Vitamin D 25-OH, Total 35 ng/mL (30-100)
== END 2022-01-22 08:31 | disposition home or self-care (01) ==
LOC: HO.LAB 08:30
PROVIDERS: PCP Internal Medicine; Visit Provider Internal Medicine
DX: Z20.822 Contact with and (suspected) exposure to COVID-19 (principal); D64.9 Anemia, unspecified; E78.5 Hyperlipidemia, unspecified; E11.9 Type 2 diabetes mellitus without complications; R56.9 Unspecified convulsions; E55.9 Vitamin D deficiency, unspecified; Z79.899 Other long term (current) drug therapy
CPT/HCPCS: 36415; 80053; 80061; 80164; 82043; 82306; 83540; 85025; U0005

== ENCOUNTER 2022-03-22 19:36 | Emergency (ER) | payer OTHER, SELFPAY ==
--- NOTE | ~2022-03-22 | CT_ITS ---
EXAMINATION: CT HEAD WITHOUT CONTRAST CLINICAL INFORMATION: History of subdural hematoma now with severe left-sided pain COMPARISON: Head CT 11/09/2021 TECHNIQUE: Imaging was performed from the skull base to vertex without intravenous administration of contrast. This CT examination was performed using dose optimization techniques as appropriate, variously including the following: *Automated exposure control *Adjustment of mA and/or kV according to patient size (this includes techniques or standardized protocols for targeted exams where dose is matched to indication/reason for exam; i.e. extremities or head) *Use of iterative reconstruction technique Total exam dose length product: 7:15 mGy-cm FINDINGS: Unchanged small low-density collection along the anterior margin of the right falx cerebra on series 2-41, likely residual of prior subdural hematoma, sagittal image 79, axial image 37. No new intra or extra-axial fluid collection, hemorrhage, or mass. No ventriculomegaly. No midline shift or herniation. Basal cisterns are patent. Webb-white matter differentiation is maintained. No territorial encephalomalacia. Proportional prominence of the ventricles and sulcal spaces is consistent with mild volume loss. Patchy periventricular and deep white matter hypoattenuation is consistent with mild small vessel ischemic changes. No calvarial fracture or soft tissue abnormality. Old right lateral parietal [place] hole noted. The mastoid air cells and visualized portions of the paranasal sinuses are well aerated. CT/CT head/brain wo con IMPRESSION: 1. No acute intracranial hemorrhage or change. 2. Small low-density residual right parafalcine collection is unchanged, compatible with a residua of the previous subdural hematoma.
[2022-03-22 20:56] VITALS: BP 241/102; PULSE 68; RESP 15; TEMP 36.3; O2SAT 100; BMI 25.8
--- NOTE | 2022-03-22 21:12 | ED.HA ---
HPI - Headache General Chief Complaint: Headache Stated Complaint: Migraine Time Seen by Provider: 03/22/22 21:12 Source: patient Mode of arrival: ambulatory Limitations: no limitations History of Present Illness HPI Narrative: patient had brain surgery one year ago now with increased blood pressure and headache for 4 days. patient with left sided headache that effects the left eye. No n/v. MD elicited complaint: headache Onset (ago): day(s) Onset description: gradually Location: left Severity: moderate Quality & Timing: pressure Context: occurred at rest Related Data Previous Rx's Medication Instructions Recorded lorazepam 0.5 mg tablet 0.5 mg PO BEDTIME PRN anxiety 20 06/03/21 days #20 tabs sumatriptan succinate 25 mg tablet 25 mg PO Q2-4H PRN migraine 06/14/21 headache 30 days #9 tabs metoclopramide HCl 10 mg tablet 10 mg PO Q6H PRN nausea and 08/15/21 (Reglan) vomiting #14 tabs mirtazapine 15 mg tablet 15 mg PO BEDTIME 90 days #90 tabs 10/11/21 cholecalciferol (vitamin D3) 25 25 mcg PO DAILY 90 days #90 caps 10/25/21 mcg (1,000 unit) capsule divalproex 125 mg tablet,delayed 125 mg PO BID 90 days #180 tabs 10/25/21 release (Depakote) losartan 50 mg tablet 50 mg PO DAILY #90 tabs 03/11/22 pioglitazone 30 mg tablet 30 mg PO DAILY #90 tabs 03/11/22 oxycodone-acetaminophen 5 mg-325 1 tab PO BID pain 28 days #56 tabs 03/21/22 mg tablet labetalol 100 mg tablet 100 mg PO DAILY #20 tabs 03/22/22 Allergies Allergy/AdvReac Type Severity Reaction Status Date / Time ibuprofen [IBUPROFEN] Allergy Intermediate NAUSEA & Verified 01/26/22 14:28 VOMITING, involuntary movements lisinopril Allergy Intermediate stomach Verified 01/26/22 14:28 upset, abd pain meloxicam Allergy Intermediate involuntary Verified 01/26/22 14:28 movements metformin Allergy Intermediate diarrhea Verified 01/26/22 14:28 oseltamivir [From TAMIFLU] Allergy Intermediate NAUSEA & Verified 01/26/22 14:28 VOMITING tizanidine Allergy Intermediate involuntary Verified 01/26/22 14:28 movements ketorolac [From TORADOL] AdvReac Mild HYPERACTIVE Verified 01/26/22 14:28 MUSCLE TREMORS Review of Systems Constitutional: Constitutional: Reports no additional constitutional complaints Eyes: Eyes: Reports no additional eye complaints ENT: Denies dizziness Cardiovascular: Cardiovascular: Reports no additional cardiovascular complaints Respiratory: Respiratory: Reports as per HPI Gastrointestinal: Gastrointestinal: Reports no additional gastrointestinal complaints Genitourinary: Genitourinary: Reports no additional female genitourinary complaints Musculoskeletal: Musculoskeletal: Reports no additional musculoskeletal complaints Integumentary/Breasts: Skin/Breast: Denies rash Neurologic: Reports system reviewed and no additional complaints, except as documented, Denies dizziness and Denies Sensory deficit (Neuro) Psychiatric: Psychiatric: Denies anxiety [facility] Past Medical History Medical History Dyslipidemia Surgical History Back pain with history of spinal surgery H/O brain surgery History of cataract surgery History of laparoscopic cholecystectomy Family History Family History Father Medical history unknown Mother Ovarian cancer Hypertension Maternal Aunt Breast cancer Social History Social History Housing: House Alcohol intake: never Patient Tobacco Use Status: Never used Tobacco e-Cigarette/Vaping Use: Never Used Second Hand Smoke Exposure: No Advance Directives: No service: No Current occupational status: retired Cognitive needs: No Hearing needs: No Vision needs: No Physical Exam Vital Signs: Vital Signs: Last Vital Signs Temp 98.3 F 03/22/22 22:27 Pulse 65 03/22/22 22:55 Resp 18 03/22/22 22:55 BP 171/79 H 03/22/22 22:55 Pulse Ox 99 03/22/22 22:55 O2 Del Method 03/22/22 22:55 BMI result Body Mass Index 25.8 Const: General: healthy appearing Nutritional Appearance: average body habitus Orientation/consciousness: oriented to person and patient oriented x3 Limitations: no limitations HEENT: Head: Yes normal to inspection Ears: external ears normal General nose exam: Normal external nose present Mouth: Normal oral and palatal mucosa present and oropharynx normal Throat: Yes posterior oropharynx normal Eyes: General: appearance normal, both eyes and all related structures Neck: Other: supple Neck: Yes normal visual inspection Chest: Chest palpation & inspection: normal inspection of the chest Resp: Auscultation: clear to auscultation bilaterally Cardio: Jugular venous distension: no JVD Rate: regular rate Rhythm: regular rhythm Heart sounds: S1 normal heart sound present and S2 normal heart sound present GI: Inspection: Yes normal to inspection Palpation (GI): Soft to palpation, nontender and No hepatosplenomegaly present Auscultation: normal bowel sounds : General: Yes no CVA tenderness Back/Spine/Pelvis: Back: no CVA tenderness Skin: General skin exam: no rashes or lesions noted Neuro: General: oriented to person and patient oriented x3 Cranial nerves: Yes CN's II-XII intact bilaterally Motor exam (neuro): 5/5 motor strength present throughout Sensory Exam: No Sensory deficit (Neuro) Extrem: General: Yes normal to inspection Psych: Appearance: grossly normal Course Reevaluation(s) Reevaluation #1: patient feeling better, headache improved but one sided, will give sumatryptin. Will dc home on labetalol. No evidence of end organ damage Time: 23:24 MDM - Headache Lab Data Result diagrams: 03/22/22 21:38 03/22/22 21:38 Labs: Lab Results 03/22/22 03/22/22 03/22/22 Range/Units 21:38 21:38 22:25 WBC 10.5 (4.8-10.8) X10*3/uL RBC 3.77 L (4.20-5.50) X10*6/uL Hgb 12.0 (12.0-16.0) g/dl Hct 36.1 L (37.0-47.0) % MCV 95.8 (80.0-98.0) fL MCH 31.8 (27.0-33.0) pg MCHC 33.2 (31.0-35.0) g/dl RDW 14.2 (11.0-16.0) % Plt Count 288 (160-400) X10*3/uL MPV 9.8 (9.4-12.3) fL Immature Gran % (Auto) 0.2 (0.0-0.4) % Neut % (Auto) 45.4 (45-73) % Lymph % (Auto) 44.0 H (20-40) % [place] % (Auto) 6.6 (2-11) % Eos % (Auto) 3.2 (0-4) % Baso % (Auto) 0.6 (0-2) % Lymph # (Auto) 4.6 (1.2-4.9) X10*3/uL [place] # (Auto) 0.7 (0.1-1.2) X10*3/uL Eos # (Auto) 0.3 (0.0-0.4) X10*3/uL Baso # (Auto) 0.1 (0.0-0.2) X10*3/uL Abs Immat Gran (auto) 0.02 (0.00-0.03) X10*3/uL Absolute Neuts (auto) 4.8 (2.0-8.3) x10*3/uL Absolute Nucleated RBC 0.000 (0.0-0.012) X10*3/uL Nucleated RBC % (auto) 0.0 (0.0-0.2) /100WBC Sodium 142 (135-145) mmol/L Potassium 3.9 (3.3-5.1) mmol/L Chloride 109 H (96-108) mmol/L Carbon Dioxide 24 (22-29) mmol/L Anion Gap 13 (12-20) BUN 17 H (9-16) mg/dL Creatinine 0.89 (0.5-1.4) mg/dL Estim Creat Clear Calc 44.3 Estimated GFR > 60 Random Glucose 112 (60-115) mg/dL Calcium 9.2 (8.4-10.2) mg/dL Urine Color YELLOW Urine Appearance CLEAR Urine pH 6.5 (5.0-8.0) Ur Specific [place] 1.015 (1.005-1.025) Urine Protein NEG (NEG-TRACE) MG/DL Urine Glucose (UA) NEG (NEG) MG/DL Urine Ketones NEG (NEG) MG/DL Urine Blood NEG (NEG) Urine Nitrite NEG (NEG) Ur Leukocyte Esterase NEG (NEG) Imaging Data CT scan - head: Radiologist's impression: FINDINGS: Unchanged small low-density collection along the anterior margin of the right falx cerebra on series 2-41, likely residual of prior subdural hematoma, sagittal image 79, axial image 37. No new intra or extra-axial fluid collection, hemorrhage, or mass. No ventriculomegaly. No midline shift or herniation. Basal cisterns are patent. Webb-white matter differentiation is maintained. No territorial encephalomalacia. Proportional prominence of the ventricles and sulcal spaces is consistent with mild volume loss. Patchy periventricular and deep white matter hypoattenuation is consistent with mild small vessel ischemic changes. No calvarial fracture or soft tissue abnormality. Old right lateral parietal [place] hole noted. The mastoid air cells and visualized portions of the paranasal sinuses are well aerated. CT/CT head/brain wo con IMPRESSION: Discharge Plan Discharge Clinical Impression: Essential hypertension, Migraine Patient Disposition: Home, Self-Care Instructions: Migraine Headache (ED), Hypertension (ED) Prescriptions: New labetalol 100 mg tablet 100 mg PO DAILY Qty: 20 0RF No Action sumatriptan succinate 25 mg tablet 25 mg PO Q2-4H PRN (Reason: migraine headache) 30 Days Qty: 9 1RF Rx Instructions: do not exceed 8 doses per 24 hrs mirtazapine 15 mg tablet 15 mg PO BEDTIME 90 Days Qty: 90 1RF losartan 50 mg tablet 50 mg PO DAILY Qty: 90 2RF pioglitazone 30 mg tablet 30 mg PO DAILY Qty: 90 3RF oxycodone-acetaminophen 5-325 mg tablet 1 tab PO BID 28 Days Qty: 56 0RF metoclopramide HCl [Reglan] 10 mg tablet 10 mg PO Q6H PRN (Reason: nausea and vomiting) Qty: 14 0RF lorazepam 0.5 mg tablet 0.5 mg PO BEDTIME PRN (Reason: anxiety) 20 Days Qty: 20 0RF divalproex [Depakote] 125 mg tablet,delayed release (DR/EC) 125 mg PO BID 90 Days Qty: 180 1RF cholecalciferol (vitamin D3) 25 mcg (1,000 unit) capsule 25 mcg PO DAILY 90 Days Qty: 90 1RF Referrals: Lena Alan MD [Primary Care Provider] - 5 days
--- NOTE | 2022-03-22 21:20 | ECG_ITS ---
Test Reason : HYPERTENSION Blood Pressure : / mmHG Vent. Rate : 071 BPM Atrial Rate : 071 BPM P-R Int : 156 ms QRS Dur : 076 ms QT Int : 404 ms P-R-T Axes : 049 -06 037 degrees QTc Int : 439 ms Normal sinus rhythm Minimal voltage criteria for LVH, may be normal variant ( R in aVL ) Nonspecific ST abnormality Abnormal ECG When compared with ECG of 04-JUN-2021 09:14, Nonspecific T wave abnormality has replaced inverted T waves in Inferior leads Referred By: Nicola Zafar Electronically Signed By:JUNITO DOMINGUEZ
[2022-03-22 21:41] VITALS: BP 212/96; PULSE 71; RESP 16; O2SAT 100
[2022-03-22 21:42] LABS: Basophils Absolute Auto 0.1 X10*3/uL (0.0-0.2); Basophils Percent Auto 0.6 % (0-2); Eosinophils Absolute Auto 0.3 X10*3/uL (0.0-0.4); Eosinophils Percent Auto 3.2 % (0-4); Hematocrit 36.1 % (37.0-47.0); Imm Gran Abs Auto 0.02 X10*3/uL (0.00-0.03); Imm Gran Pct Auto 0.2 % (0.0-0.4); Lymphocytes Absolute Auto 4.6 X10*3/uL (1.2-4.9); MANUAL DIFF FLAG NO; Mean Corpuscular HGB Conc 33.2 g/dl (31.0-35.0); Mean Corpuscular Hemoglobin 31.8 pg (27.0-33.0); Mean Corpuscular Volume 95.8 fL (80.0-98.0); Mean Platelet Volume 9.8 fL (9.4-12.3); Monocytes Absolute Auto 0.7 X10*3/uL (0.1-1.2); Monocytes Percent Auto 6.6 % (2-11); Neutrophils Absolute Auto 4.8 x10*3/uL (2.0-8.3); Neutrophils Percent Auto 45.4 % (45-73); Platelet Count 288 X10*3/uL (160-400); Red Blood Count 3.77 X10*6/uL (4.20-5.50); Red Cell Distribution Width 14.2 % (11.0-16.0); White Blood Count 10.5 X10*3/uL (4.8-10.8)
[2022-03-22 22:00] LABS: Anion Gap 13 (12-20); Blood Urea Nitrogen 17 mg/dL (9-16); Calcium 9.2 mg/dL (8.4-10.2); Carbon Dioxide 24 mmol/L (22-29); Chloride 109 mmol/L (96-108); Creatinine Clr Calc Pharmacy 44.3; Estimated Glomerular Filt Rate > 60; Glucose Random 112 mg/dL (60-115); Potassium 3.9 mmol/L (3.3-5.1); Sodium 142 mmol/L (135-145)
[2022-03-22 22:27] VITALS: BP 187/84; PULSE 70; RESP 16; TEMP 36.8; O2SAT 97
[2022-03-22 22:36] LABS: Appearance Urine CLEAR; Color Urine YELLOW; Glucose Urine UA NEG (NEG); Leukocyte Esterase Urine NEG (NEG); Nitrite Urine NEG (NEG); PH 6.5 (5.0-8.0); Specific Gravity - Urine 1.015 (1.005-1.025); Urine Blood NEG (NEG); Urine Ketones NEG (NEG); Urine Protein NEG (NEG-TRACE)
[2022-03-22 22:55] VITALS: BP 171/79; PULSE 65; RESP 18; O2SAT 99
[2022-03-22 23:51] VITALS: BP 168/71; PULSE 74; RESP 13; O2SAT 95
[2022-03-23] MEDS: SUMAtriptan succinate 6 MG/0.5 ML VIAL SUBCUT (00:12)
== END 2022-03-23 00:18 | disposition home or self-care (01) ==
PROVIDERS: Emergency Provider Emergency Medicine; PCP Internal Medicine
DX: G43.009 Migraine without aura, not intractable, without status migrainosus (principal); I10 Essential (primary) hypertension
CPT/HCPCS: 36415; 70450; 80048; 81003; 85025; 93005; 96372; 96374; 96376; 99284; J3030

== ENCOUNTER 2022-06-08 13:12 | Outpatient (REF) | payer OTHER, SELFPAY ==
--- NOTE | ~2022-06-08 | MM_ITS ---
EXAMINATION: MM SCREENING DIGITAL BREAST TOMOSYNTHESIS, BILATERAL CLINICAL INFORMATION: Screening. Asymptomatic. The lifetime risk of breast cancer based on the Tyrer-Cuzick Model is 2%. COMPARISON: Mammography: 03/08/2019, 03/05/2019, 02/27/2018, 11/08/2016 TECHNIQUE: Digital breast tomosynthesis is performed in both the craniocaudal and mediolateral oblique views along with computer-aided detection (CAD). Synthesized 2D images are generated from the tomosynthesis. FINDINGS: There are scattered areas of fibroglandular density (ACR BI-RADS breast composition Category b). There are no significant masses, abnormal calcifications, or other abnormalities. Breast tissue composition borders on heterogeneously dense. No interval architectural abnormality or developing density. The axilla and skin contours are unremarkable. MM/MM tomosynthesis screening BI IMPRESSION: No mammographic evidence of malignancy. ASSESSMENT: BI-RADS 1: Negative RECOMMENDATION: Routine annual mammography screening. This patient's information was entered into a reminder system with a target due date for their next mammogram.
== END 2022-06-08 13:13 | disposition home or self-care (01) ==
LOC: HO.MAMMO 13:12
PROVIDERS: PCP Internal Medicine; Visit Provider Internal Medicine
DX: Z12.31 Encounter for screening mammogram for malignant neoplasm of breast (principal)
CPT/HCPCS: 77063; 77067

== ENCOUNTER 2022-06-21 13:22 | Outpatient (REF) | payer OTHER, SELFPAY ==
--- NOTE | ~2022-06-21 | XR_ITS ---
EXAMINATION: XR shoulder RT min 2V, XR scapula RT CLINICAL INFORMATION: Reason for Exam M25.511 - Pain in right shoulder COMPARISON: None. TECHNIQUE: Four views of the shoulder and 2 views of the scapula XR/XR shoulder RT min 2V FINDINGS/IMPRESSION: * No acute fracture or dislocation. * Moderate degenerative changes of the shoulder predominantly involving the acromioclavicular joint with loss of joint space and loss of subacromial joint space which could be seen in the setting of rotator cuff pathology. * No soft tissue abnormality.
--- NOTE | ~2022-06-21 | XR_ITS ---
EXAMINATION: XR shoulder RT min 2V, XR scapula RT CLINICAL INFORMATION: Reason for Exam M25.511 - Pain in right shoulder COMPARISON: None. TECHNIQUE: Four views of the shoulder and 2 views of the scapula XR/XR scapula RT FINDINGS/IMPRESSION: * No acute fracture or dislocation. * Moderate degenerative changes of the shoulder predominantly involving the acromioclavicular joint with loss of joint space and loss of subacromial joint space which could be seen in the setting of rotator cuff pathology. * No soft tissue abnormality.
--- NOTE | ~2022-06-21 | XR_ITS ---
EXAMINATION: XR FOOT, RIGHT CLINICAL INFORMATION: Pain COMPARISON: Right foot radiographs 10/23/2015 TECHNIQUE: AP, lateral, and oblique views of the right foot. FINDINGS: No acute fracture or dislocation. Mild degenerative changes of the foot with degenerative spurring at the first metatarsophalangeal joint and Achilles tendon enthesopathy similar to prior. Soft tissues are unremarkable. No joint effusion. XR/XR foot RT min 3V IMPRESSION: Mild degenerative changes of the foot similar to prior.
== END 2022-06-21 13:23 | disposition home or self-care (01) ==
LOC: HO.XRAY 13:22
PROVIDERS: PCP Internal Medicine; Visit Provider Internal Medicine
DX: M79.671 Pain in right foot (principal); M25.511 Pain in right shoulder; M89.8X1 Other specified disorders of bone, shoulder
CPT/HCPCS: 73010; 73030; 73630

== ENCOUNTER → 2022-07-22 10:54 | Outpatient (BNVA) | payer OTHER, SELFPAY | PROVIDERS: PCP Internal Medicine; Visit Provider Physician Assistant | DX: M75.80 Other shoulder lesions, unspecified shoulder (principal); M19.011 Primary osteoarthritis, right shoulder | CPT/HCPCS: 99202 ==

== ENCOUNTER 2022-08-03 13:45 | Outpatient (RCR) | payer OTHER, SELFPAY ==
[2022-08-03 14:10] VITALS: BP 160/100; PULSE 80
--- NOTE | 2022-08-03 17:06 | MHC.PT.EP ---
[facility] [place] [facility] [place] Office [place] Office [address] [phone] F: [phone] F: [phone] F: [phone] F: [phone] Physical Therapy Plan of Care Date of Evaluation: Date of Surgery: Diagnosis: OA of R shoulder Assessment: Pt is a 72 y/o female referred to PT for eval and treat of R shoulder OA resulting in decreased tolerance for reaching high shelves, dressing pullovers, reaching her back and neck for hygiene and dressing, lifting objects of weight and performing HH chores secondary to decreased R shoulder ROM and strength, decreased scapular posture, TTP of superior and anterior R shoulder, and pain. Pt is deemed an appropriate candidate to receive skilled PT services to address their physical impairments in order to improve her functional ability. NOTE: Pt BP 160/100 Pt to call PCP for appropriateness of PT given her BP presentation today; Pt in no distress or EDGE. Frequency and Duration: The patient will be seen 2 x/wk x 5 wks. Short Term Goals: initiate HEP. Jail Goals: I with HEP. Pt will be able to dress pullovers with managed Sx; initial: 8/10 pain/ difficulty. Pt will be able to place objects on high shelf with managed Sx; initial: 8/10 pain/ difficulty. Improve R shoulder flexion MMT by at least 1/2 MMT. Treatment Plan: Modalities to reduce pain, spasms and effusion. Manual therapy to restore motion and function. Therapeutic exercise to improve strength and flexibility. Neuromuscular re-education for posture and balance. Therapeutic activities to return to functional activities of daily living. Electronically signed by: Kenneth Del Real PT. Please sign and return to therapist. Thank you for your referral.
--- NOTE | 2022-10-28 09:02 | MHC.PT.DC ---
[facility] [place] Office [place] Office [place] Office [address] [phone] F: [phone] F: [phone] F: [phone] F: [phone] Physical Therapy Discharge Report Diagnosis: OA of R shoulder Date of Surgery: Date of Evaluation: 08/03/22 Date of Discharge: 10/28/22 Treatments to Date: 1 Cancellations to Date: No Shows to Date: Discharge Status: Patient Elected to Stop Recommend MD Follow-up Discharge Summary: Therapy was concerned of high BP during her evaluation. Her PCP was informed of this and was placed on a hold until her condition improved. She is DC'd at this time as she has not followed up with therapy in re to her BP improving. Electronically signed by: Kenneth Del Real PT Please sign and return to therapist. Thank you for your referral.
== END 2022-10-28 09:02 | disposition home or self-care (01) ==
LOC: HO.PTCHIC 13:45
PROVIDERS: PCP Internal Medicine; Visit Provider Physician Assistant
DX: M75.80 Other shoulder lesions, unspecified shoulder (principal); M19.011 Primary osteoarthritis, right shoulder
CPT/HCPCS: 97110; 97162

== ENCOUNTER 2022-10-15 07:44 | Outpatient (REF) | payer OTHER, SELFPAY ==
[2022-10-15 09:04] LABS: Valproate 17.3 mcg/mL (50.0-100.0)
[2022-10-15 09:22] LABS: Alanine Aminotransferase 15 U/L (0-31); Alkaline Phosphatase 103 U/L (39-117); Anion Gap 11 (12-20); Aspartate Amino Transferase 21 U/L (5-31); Bilirubin Total 0.3 mg/dL (0.0-1.0); Blood Urea Nitrogen 19 mg/dL (9-16); Calcium 9.8 mg/dL (8.4-10.2); Carbon Dioxide 27 mmol/L (22-29); Chloride 108 mmol/L (96-108); Cholesterol 193 mg/dL; Estimated Glomerular Filt Rate > 60; Glucose Fasting 123 mg/dL (60-99); HDL Cholesterol 56 mg/dL; LDL Cholesterol Calculated 118 mg/dl; Potassium 4.2 mmol/L (3.3-5.1); Sodium 142 mmol/L (135-145); Total Protein 7.2 g/dL (6.5-8.0); Triglycerides 96 mg/dL
[2022-10-15 09:42] LABS: Vitamin D 25-OH Total 38.9 ng/mL (>30)
[2022-10-15 09:51] LABS: Creatinine Urine 130.57 mg/dL; Microalbum/Creatinine Ratio Ur 19.1 ug/mg cr
== END 2022-10-15 07:45 | disposition home or self-care (01) ==
LOC: HO.LAB 07:44
PROVIDERS: PCP Internal Medicine; Visit Provider Internal Medicine
DX: E78.5 Hyperlipidemia, unspecified (principal); R56.9 Unspecified convulsions; E11.9 Type 2 diabetes mellitus without complications; I10 Essential (primary) hypertension; E55.9 Vitamin D deficiency, unspecified; Z79.899 Other long term (current) drug therapy
CPT/HCPCS: 36415; 80053; 80061; 80164; 82043; 82306

== ENCOUNTER 2022-11-08 15:16 | Outpatient (REF) | payer OTHER, SELFPAY ==
--- NOTE | ~2022-11-08 | MR_ITS ---
EXAMINATION: MRI OF THE BRAIN WITHOUT CONTRAST CLINICAL INFORMATION: Traumatic subdural with loss of consciousness. COMPARISON: CT scan of the head 03/22/2022. TECHNIQUE: MRI scan of the brain was performed using routine sequences. Some images are degraded by susceptibility artifact from the patient's dental hardware. FINDINGS: No diffusion abnormalities are identified to suggest an acute or subacute infarct. No mass effect or midline shift is seen. There is commensurate prominence of the ventricles and sulci consistent with diffuse volume loss. There are relatively extensive areas of hyperintense T2 and FLAIR signal in the periventricular subcortical white matter, which are most consistent with chronic microvascular ischemic changes. The study redemonstrates a small subdural fluid collection along the anterior falx on the right, which appears unchanged in size. There is no mass effect on the adjacent brain parenchyma. The brainstem and cerebellum are normal. There are no new fluid collections. The study redemonstrates sequelae of prior craniotomy in the right parietal bone. There are no acute or chronic areas of hemorrhage. The gradient images are slightly degraded by susceptibility artifact particularly in the frontal lobes. The craniovertebral junction, marrow signal, and midline structures are normal. The major intracranial flow-voids at the level of the upper [place] are preserved. The dural venous sinus flow-voids are maintained. The mastoid air cells and paranasal sinuses are well-aerated. MR/MR head/brain wo con IMPRESSION: 1. There are no acute bleeds or territorial infarcts. No masses are demonstrated. 2. There are chronic microvascular ischemic changes and there is diffuse volume loss. 3. There is a small subdural fluid collection over the right frontal lobe, which appears stable compared to prior imaging.
--- NOTE | ~2022-11-08 | XR_ITS ---
EXAMINATION: XR SKULL CLINICAL INFORMATION: Pre-MRI. Rule out foreign body or shunt COMPARISON: None TECHNIQUE: 5 views of the skull were obtained. FINDINGS: No radiopaque foreign body or shunt is seen. Bone and soft tissues are normal. XR/XR skull <4V IMPRESSION: Unremarkable examination. No radiopaque foreign body or shunt.
== END 2022-11-08 15:17 | disposition home or self-care (01) ==
LOC: HO.MRI 15:16
PROVIDERS: Visit Provider Internal Medicine
DX: G43.B0 Ophthalmoplegic migraine, not intractable (principal); R56.9 Unspecified convulsions; S06.5X9A Traumatic subdural hemorrhage with loss of consciousness of unspecified duration, initial encounter
CPT/HCPCS: 70250; 70551

== ENCOUNTER → 2023-03-31 13:28 | Outpatient (BNVA) | payer OTHER, SELFPAY | PROVIDERS: PCP Internal Medicine; Visit Provider Physician Assistant | DX: M19.011 Primary osteoarthritis, right shoulder (principal); M75.80 Other shoulder lesions, unspecified shoulder | CPT/HCPCS: 20610; 99212; J1020 ==

== ENCOUNTER 2023-05-30 18:12 | Emergency (ER) | payer OTHER, SELFPAY ==
--- NOTE | ~2023-05-30 | XR_ITS ---
EXAMINATION: XR CHEST CLINICAL INFORMATION: Chest pain COMPARISON: No recent comparison available for review. TECHNIQUE: Frontal view of the chest was obtained. FINDINGS: Lungs are mildly hypoinflated and grossly clear. No consolidation, pleural effusion or pneumothorax. Cardiac silhouette is normal in size. The hilar contours are normal. Cholecystectomy clips are present in the right upper abdomen. Mild dextrocurvature of the thoracic spine. XR/XR chest 1V IMPRESSION: No acute pulmonary disease.
--- NOTE | 2023-05-30 18:23 | ECG_ITS ---
Test Reason : CHEST PAIN Blood Pressure : / mmHG Vent. Rate : 084 BPM Atrial Rate : 084 BPM P-R Int : 158 ms QRS Dur : 074 ms QT Int : 376 ms P-R-T Axes : 042 -11 039 degrees QTc Int : 444 ms Normal sinus rhythm Minimal voltage criteria for LVH, may be normal variant ( R in aVL ) Nonspecific ST abnormality Abnormal ECG When compared with ECG of 22-MAR-2022 21:17, No significant change was found Referred By: Brianna Wagoner Electronically Signed By:JESENIA BRAVO
[2023-05-30 18:42] LABS: MANUAL DIFF FLAG NO
[2023-05-30 18:46] VITALS: BP 200/85; PULSE 75; RESP 18; TEMP 36; O2SAT 100; BMI 26.0
--- NOTE | 2023-05-30 18:48 | ED_ITS ---
HPI - General Adult General Chief complaint: Chest Pain Stated complaint: chest pain, L arm numbness Time Seen by Provider: 05/30/23 22:13 Source: patient Mode of arrival: ambulatory Limitations: language barrier History of Present Illness HPI narrative: Patient is a 73-year-old female who presents emergency department for evaluation of of acute on chronic right shoulder/clavicular pain by her description. Pain is felt from the lateral right clavicle in throughout the shoulder and towards the back in her scapula. She states that this is chronic in nature but was worse today upon awakening. She has been followed by her primary care provider, received prescription for oxycodone, and has seen Orthopedics in the past and received cortisone injections without significant improvement. Before coming to the emergency department she took her oxycodone with some relief. She states she is unable to take muscle relaxers as this has caused involuntary muscle spasms/movement. She denies any numbness or tingling to the arm. Additionally, she reports a brief episode of dizziness earlier today, described a brief feeling of lightheadedness while walking, upon sitting down her symptoms resolved, she reports that her blood pressure was elevated at home today, does not recall the exact number. She thinks this may be in relation to her pain. Denies any room spinning sensation, tinnitus, nausea, vomiting, substernal chest pain, shortness of breath, vision changes, neck pain Related Data Previous Rx's Medication Instructions Recorded cholecalciferol (vitamin D3) 25 25 mcg PO DAILY 90 days #90 caps 10/25/21 mcg (1,000 unit) capsule divalproex 125 mg tablet,delayed 125 mg PO BID 90 days #180 tabs 12/08/22 release (Depakote) mirtazapine 15 mg tablet 15 mg PO BEDTIME 90 days #90 tabs 12/08/22 losartan 100 mg tablet 100 mg PO DAILY 90 days #90 tabs 12/31/22 amlodipine 5 mg tablet 5 mg PO DAILY 90 days #90 tabs 02/05/23 diclofenac sodium 1 % topical gel 4 g topical QID PRN pain (scale 02/15/23 score 4-6) 1 month #100 grams lorazepam 0.5 mg tablet 0.5 mg PO BEDTIME PRN anxiety 20 02/23/23 days #20 tabs pioglitazone 30 mg tablet 30 mg PO DAILY #90 tabs 03/06/23 rosuvastatin 5 mg tablet 5 mg PO DAILY 90 days #90 tabs 03/15/23 oxycodone-acetaminophen 5 mg-325 1 tab PO Q8H pain 28 days #84 tabs 05/18/23 mg tablet Allergies Allergy/AdvReac Type Severity Reaction Status Date / Time ibuprofen [IBUPROFEN] Allergy Intermediate NAUSEA & Verified 05/30/23 18:46 VOMITING, involuntary movements lisinopril Allergy Intermediate stomach Verified 05/30/23 18:46 upset, abd pain meloxicam Allergy Intermediate involuntary Verified 05/30/23 18:46 movements metformin Allergy Intermediate diarrhea Verified 05/30/23 18:46 oseltamivir [From TAMIFLU] Allergy Intermediate NAUSEA & Verified 05/30/23 18:46 VOMITING tizanidine Allergy Intermediate involuntary Verified 05/30/23 18:46 movements ketorolac [From TORADOL] AdvReac Mild HYPERACTIVE Verified 05/30/23 18:46 MUSCLE TREMORS Review of Systems 2 Review of Systems: Yes all other systems are reviewed and are negative PMFSH Past Medical History Attestation statement: The following information was validated with the patient. Source: old records reviewed Medical History Diabetes mellitus Dyslipidemia Essential hypertension Headache Insomnia Lumbar degenerative disc disease Rotator cuff tendonitis Seizures Subdural hematoma Surgical History Back pain with history of spinal surgery H/O brain surgery History of cataract surgery History of laparoscopic cholecystectomy Family History Family History Father Medical history unknown Mother Ovarian cancer Hypertension Maternal Aunt Breast cancer Social History Social History Housing: House Alcohol intake: never Patient Tobacco Use Status: Never used Tobacco Smoked in Last 30 Days: No e-Cigarette/Vaping Use: Never Used Second Hand Smoke Exposure: No Use of substances other than those prescribed or required for medical reasons: No Advance Directives: No Advance Directives Information Provided: Yes service: No Current occupational status: retired and disabled 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 No acute distress.?Normal affect. Eyes: Pupils equal, round and reactive to light.? ENT: Pharynx normal.?? Neck: Normal inspection.? Neck supple.?? CVS: Heart sounds normal. Normal heart rate and rhythm.? Pulses normal.?? Respiratory: No respiratory distress.? Lung sounds clear to auscultation bilaterally?? Abdomen: Soft and non-tender. Normoactive bowel sounds. Skin: Skin warm and dry.? Normal skin color.? Extremities: No lower extremity edema.? No calf ttp?decreased AROM to the right shoulder most notable with abduction greater than 90 degrees and overhead extension Neuro: Moves all extremities spontaneously. Sensation intact bilaterally. CN II- XII intact. No focal neuro deficits. Jxecyi-ym-kagh test normal. Heel to paulson test normal. Ambulates with normal steady gait. Course Course Course Narrative: This is an RME: Additional HPI, ROS, PE not included below will be deferred to primary provider. 73 year old female with chest pain going on for months. Plan- labs, imaging, ekg, urine Reevaluation(s) Reevaluation #1: CBC reveals no evidence of leukocytosis, mild normocytic anemia not meeting any transfusion criteria. Mild increased BUN and creatinine from baseline, may be secondary to mild dehydration. High sensitive troponin nondetectable, EKG revealing a normal sinus rhythm, with ventricular rate of 84, normal SC interval, QTC 444, no ST elevation, no ST depression, no T-wave inversion, no evidence of acute ischemic abnormalities, unlikely ACS. BMP within normal limits. Chest x-ray is without evidence of acute abnormality, no pneumonia or pneumothorax. Acute on chronic right shoulder pain, consistent with arthritis of the right AC joint, for which she will require further follow-up with orthopedics for continued management. Time: 23:00 Reevaluation #2: Patient received an IV dose of labetalol with improvement in blood pressure 181/81 without signs of end-organ damage, and oxycodone with improvement in her pain. At this time she is stable for discharge, recommended outpatient follow- up with her primary care provider/Orthopedics. Discussed worrisome signs and symptoms that would warrant re-evaluation in the emergency department. All questions answered. Time: 01:18 Medications Administered Discontinued Medications Generic Name Dose Route Start Last Admin Trade Name Allison PRN Reason Stop Dose Admin Labetalol HCl 10 mg 05/30/23 23:52 05/31/23 00:39 Labetalol Hcl 100 Mg/20 Ml Vial IVPUSH 05/30/23 23:53 10 mg ONCE ONE Administration Oxycodone HCl 5 mg 05/30/23 23:52 05/31/23 00:30 Oxycodone Hcl Immed Release 5 Mg Tablet PO 05/30/23 23:53 5 mg ONCE ONE Administration Medical Decision Making Medical Decision Making [facility] Narrative: Patient is a 73 old female with past medical history of hyperlipidemia, subdural hematoma, seizure disorder, hypertension, diabetes presenting to emergency department for evaluation of acute on chronic right shoulder pain that was worse upon awakening this morning with minimal response to her oxycodone. No precipitating injury. Extremity is neurovascularly intact distally, no associated neck pain. She has known arthritis of the right AC joint, and rotator cuff tendinitis, unlikely acute fracture dislocation. Patient intolerant to muscle relaxers with reported involuntary movements, she is already prescribed oxycodone, advised patient that she will require outpatient follow-up with orthopedics for further management, provided with a dose of her oxycodone while in the emergency department today with good relief. Given her episode of dizziness as well as hypertension, history and physical examination not consistent with central etiology of dizziness, likely vasovagal versus symptomatic hypertension, Will obtain CBC to evaluate for leukocytosis/ anemia, CMP and lipase to evaluate for abnormal electrolytes /abnormal renal function/ abnormal hepatic/biliary function, EKG and troponin to evaluate for ischemia/ACS. Differential Diagnosis Differential Diagnoses: The differential diagnosis associated with the presentation includes (ACS, pneumonia, pneumothorax, CHF, anemia, muscular strain,) Admission/Observation Consideration of admission/observation: Escalation of care including admission/observation considered (I considered admission for chest pain, see course narrative for further detail) Lab Data MDM Lab Attestation statement: I reviewed the patient's lab results. (See course narrative for further detail) 05/30/23 18:38 05/30/23 18:38 Labs: Lab Results 05/30/23 05/30/23 05/30/23 Range/Units 18:38 18:38 18:38 WBC 10.3 (4.8-10.8) X10*3/uL RBC 3.70 L (4.20-5.50) X10*6/uL Hgb 11.9 L (12.0-16.0) g/dl Hct 35.8 L (37.0-47.0) % MCV 96.8 (80.0-98.0) fL MCH 32.2 (27.0-33.0) pg MCHC 33.2 (31.0-35.0) g/dl RDW 14.3 (11.0-16.0) % Plt Count 271 (160-400) X10*3/uL MPV 9.9 (9.4-12.3) fL Immature Gran % (Auto) 0.2 (0.0-0.4) % Neut % (Auto) 34.9 L (45-73) % Lymph % (Auto) 54.6 H (20-40) % [place] % (Auto) 5.7 (2-11) % Eos % (Auto) 4.1 H (0-4) % Baso % (Auto) 0.5 (0-2) % Lymph # (Auto) 5.6 H (1.2-4.9) X10*3/uL [place] # (Auto) 0.6 (0.1-1.2) X10*3/uL Eos # (Auto) 0.4 (0.0-0.4) X10*3/uL Baso # (Auto) 0.1 (0.0-0.2) X10*3/uL Abs Immat Gran (auto) 0.02 (0.00-0.03) X10*3/uL Absolute Neuts (auto) 3.6 (2.0-8.3) x10*3/uL Absolute Nucleated RBC 0.000 (0.0-0.012) X10*3/uL Nucleated RBC % (auto) 0.0 (0.0-0.2) /100WBC Sodium 142 (135-145) mmol/L Potassium 3.8 (3.3-5.1) mmol/L Chloride 108 (96-108) mmol/L Carbon Dioxide 25 (22-29) mmol/L Anion Gap 13 (12-20) BUN 23 H (9-16) mg/dL Creatinine 1.23 (0.5-1.4) mg/dL Estim Creat Clear Calc 31.2 Estimated GFR 43 Random Glucose 154 H (60-115) mg/dL Calcium 9.5 (8.4-10.2) mg/dL Magnesium 2.0 (1.6-2.6) mg/dL Total Bilirubin 0.3 (0.0-1.0) mg/dL AST 20 (5-31) U/L ALT 12 (0-31) U/L Alkaline Phosphatase 111 (39-117) U/L Troponin I High Sens < 2.7 (<3.5-17.0) ng/L B-Natriuretic Peptide (<100) pg/mL Total Protein 7.6 (6.5-8.0) g/dL Albumin 4.1 (3.5-5.0) g/dL 05/30/23 Range/Units 18:38 WBC (4.8-10.8) X10*3/uL RBC (4.20-5.50) X10*6/uL Hgb (12.0-16.0) g/dl Hct (37.0-47.0) % MCV (80.0-98.0) fL MCH (27.0-33.0) pg MCHC (31.0-35.0) g/dl RDW (11.0-16.0) % Plt Count (160-400) X10*3/uL MPV (9.4-12.3) fL Immature Gran % (Auto) (0.0-0.4) % Neut % (Auto) (45-73) % Lymph % (Auto) (20-40) % [place] % (Auto) (2-11) % Eos % (Auto) (0-4) % Baso % (Auto) (0-2) % Lymph # (Auto) (1.2-4.9) X10*3/uL [place] # (Auto) (0.1-1.2) X10*3/uL Eos # (Auto) (0.0-0.4) X10*3/uL Baso # (Auto) (0.0-0.2) X10*3/uL Abs Immat Gran (auto) (0.00-0.03) X10*3/uL Absolute Neuts (auto) (2.0-8.3) x10*3/uL Absolute Nucleated RBC (0.0-0.012) X10*3/uL Nucleated RBC % (auto) (0.0-0.2) /100WBC Sodium (135-145) mmol/L Potassium (3.3-5.1) mmol/L Chloride (96-108) mmol/L Carbon Dioxide (22-29) mmol/L Anion Gap (12-20) BUN (9-16) mg/dL Creatinine (0.5-1.4) mg/dL Estim Creat Clear Calc Estimated GFR Random Glucose (60-115) mg/dL Calcium (8.4-10.2) mg/dL Magnesium (1.6-2.6) mg/dL Total Bilirubin (0.0-1.0) mg/dL AST (5-31) U/L ALT (0-31) U/L Alkaline Phosphatase (39-117) U/L Troponin I High Sens (<3.5-17.0) ng/L B-Natriuretic Peptide 17 (<100) pg/mL Total Protein (6.5-8.0) g/dL Albumin (3.5-5.0) g/dL Independent Interpretation I performed an independent interpretation of an: EKG (See course narrative) and Plain X-Ray (I have personally interpreted chest x-ray and agree with radiologist impression, no evidence of pneumonia or pneumothorax) Radiology Impression Discussion of test interpretation with radiology: I have reviewed the radiologist's reading. Radiologist Impression: XR/XR chest 1V IMPRESSION: No acute pulmonary disease. Discharge Plan Discharge Clinical Impression: Arthritis of right acromioclavicular joint, Essential hypertension Patient Disposition: Home, Self-Care Prescriptions: No Action mirtazapine 15 mg tablet 15 mg PO BEDTIME 90 Days Qty: 90 1RF divalproex [Depakote] 125 mg tablet,delayed release (DR/EC) 125 mg PO BID 90 Days Qty: 180 1RF losartan 100 mg tablet 100 mg PO DAILY 90 Days Qty: 90 1RF amlodipine 5 mg tablet 5 mg PO DAILY 90 Days Qty: 90 1RF diclofenac sodium 1 % gel 4 g topical QID PRN (Reason: pain (scale score 4-6)) 30 Days Qty: 100 6RF pioglitazone 30 mg tablet 30 mg PO DAILY Qty: 90 3RF rosuvastatin 5 mg tablet 5 mg PO DAILY 90 Days Qty: 90 1RF oxycodone-acetaminophen 5-325 mg tablet 1 tab PO Q8H 28 Days Qty: 84 0RF cholecalciferol (vitamin D3) 25 mcg (1,000 unit) capsule 25 mcg PO DAILY 90 Days Qty: 90 1RF lorazepam 0.5 mg tablet 0.5 mg PO BEDTIME PRN (Reason: anxiety) 20 Days Qty: 20 0RF Referrals: Lena Alan MD [Primary Care Provider] - Interventions: ED Discharge Assessment Last Done: 05/31/23 01:38 Discharge Date/Time: 05/31/23 01:39
[2023-05-30 18:50] LABS: Basophils Absolute Auto 0.1 X10*3/uL (0.0-0.2); Basophils Percent Auto 0.5 % (0-2); Eosinophils Absolute Auto 0.4 X10*3/uL (0.0-0.4); Eosinophils Percent Auto 4.1 % (0-4); Hematocrit 35.8 % (37.0-47.0); Hemoglobin 11.9 g/dl (12.0-16.0); Imm Gran Abs Auto 0.02 X10*3/uL (0.00-0.03); Imm Gran Pct Auto 0.2 % (0.0-0.4); Lymphocytes Absolute Auto 5.6 X10*3/uL (1.2-4.9); Lymphocytes Percent Auto 54.6 % (20-40); Mean Corpuscular HGB Conc 33.2 g/dl (31.0-35.0); Mean Corpuscular Hemoglobin 32.2 pg (27.0-33.0); Mean Corpuscular Volume 96.8 fL (80.0-98.0); Mean Platelet Volume 9.9 fL (9.4-12.3); Monocytes Absolute Auto 0.6 X10*3/uL (0.1-1.2); Monocytes Percent Auto 5.7 % (2-11); Neutrophils Absolute Auto 3.6 x10*3/uL (2.0-8.3); Neutrophils Percent Auto 34.9 % (45-73); Platelet Count 271 X10*3/uL (160-400); Red Cell Distribution Width 14.3 % (11.0-16.0); SCAN SMEAR FLAG 1; White Blood Count 10.3 X10*3/uL (4.8-10.8)
[2023-05-30 19:14] LABS: Alanine Aminotransferase 12 U/L (0-31); Albumin Level 4.1 g/dL (3.5-5.0); Alkaline Phosphatase 111 U/L (39-117); Anion Gap 13 (12-20); Aspartate Amino Transferase 20 U/L (5-31); Bilirubin Total 0.3 mg/dL (0.0-1.0); Blood Urea Nitrogen 23 mg/dL (9-16); Calcium 9.5 mg/dL (8.4-10.2); Carbon Dioxide 25 mmol/L (22-29); Chloride 108 mmol/L (96-108); Creatinine Clr Calc Pharmacy 31.2; Estimated Glomerular Filt Rate 43; Glucose Random 154 mg/dL (60-115); Potassium 3.8 mmol/L (3.3-5.1); Sodium 142 mmol/L (135-145); Total Protein 7.6 g/dL (6.5-8.0)
[2023-05-30 19:18] LABS: B Type Natriuretic Peptide 17 pg/mL (<100)
[2023-05-30 19:27] LABS: Troponin-I High Sensitivity < 2.7 ng/L (<3.5-17.0)
[2023-05-30 22:29] VITALS: BP 190/81; PULSE 67; RESP 14; O2SAT 100
[2023-05-31] MEDS: oxyCODONE HCl Immed Release 5 MG TABLET PO (00:30)
[2023-05-31 00:32] VITALS: BP 199/76; PULSE 93; RESP 20; O2SAT 100
[2023-05-31] MEDS: Labetalol HCL 100 MG/20 ML VIAL 10 MG IVPUSH (00:39)
--- NOTE | 2023-05-31 00:49 | PC.NURSE ---
pt medicated with oxycodone po and labetalol ivp
[2023-05-31 01:08] VITALS: BP 181/81; PULSE 63; RESP 16; O2SAT 100
== END 2023-05-31 01:39 | disposition home or self-care (01) ==
PROVIDERS: Physician Assistant; Emergency Provider Internal Medicine; PCP Internal Medicine
DX: M19.011 Primary osteoarthritis, right shoulder (principal); R07.89 Other chest pain; I10 Essential (primary) hypertension; R06.02 Shortness of breath; Z79.899 Other long term (current) drug therapy
CPT/HCPCS: 36415; 71045; 80053; 83735; 83880; 84484; 85025; 93005; 99283; 99285

== ENCOUNTER 2023-06-24 08:03 | Outpatient (REF) | payer OTHER, SELFPAY ==
[2023-06-24 09:35] LABS: Alanine Aminotransferase 8 U/L (0-31); Alkaline Phosphatase 108 U/L (39-117); Anion Gap 17 (12-20); Aspartate Amino Transferase 20 U/L (5-31); Bilirubin Total 0.3 mg/dL (0.0-1.0); Blood Urea Nitrogen 16 mg/dL (9-16); Calcium 9.9 mg/dL (8.4-10.2); Carbon Dioxide 23 mmol/L (22-29); Chloride 108 mmol/L (96-108); Cholesterol 172 mg/dL (<200); Estimated Glomerular Filt Rate > 60; Glucose Fasting 111 mg/dL (60-99); HDL Cholesterol 58 mg/dL (>40); LDL Cholesterol Calculated 90 mg/dL (<100); Sodium 144 mmol/L (135-145); Total Protein 7.5 g/dL (6.5-8.0); Triglycerides 124 mg/dL (<150)
[2023-06-24 09:54] LABS: Vitamin D 25-OH Total 40.2 ng/mL (>30)
[2023-06-24 10:34] LABS: Creatinine Urine 187.85 mg/dL; Microalbum/Creatinine Ratio Ur 8.5 ug/mg cr (<30)
== END 2023-06-24 08:04 | disposition home or self-care (01) ==
LOC: HO.LAB 08:03
PROVIDERS: PCP Internal Medicine; Visit Provider Internal Medicine
DX: E55.9 Vitamin D deficiency, unspecified (principal); E11.9 Type 2 diabetes mellitus without complications; R56.9 Unspecified convulsions; E78.5 Hyperlipidemia, unspecified
CPT/HCPCS: 36415; 80053; 80061; 82043; 82306; 82570

== ENCOUNTER 2023-06-29 13:40 | Outpatient (AMB) | payer OTHER, SELFPAY ==
[2023-06-29 13:48] VITALS: BP 142/90; BMI 25.4
--- NOTE | 2023-06-29 13:48 | MHC.PC.OV ---
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 Accompanied by: Self / Same As Patient Allergies ibuprofen [IBUPROFEN] Allergy (Intermediate, Verified 06/29/23 14:04) NAUSEA & VOMITING, involuntary movements lisinopril Allergy (Intermediate, Verified 06/29/23 14:04) stomach upset, abd pain meloxicam Allergy (Intermediate, Verified 06/29/23 14:04) involuntary movements metformin Allergy (Intermediate, Verified 06/29/23 14:04) diarrhea oseltamivir [From TAMIFLU] Allergy (Intermediate, Verified 06/29/23 14:04) NAUSEA & VOMITING tizanidine Allergy (Intermediate, Verified 06/29/23 14:04) involuntary movements ketorolac [From TORADOL] Adverse Reaction (Mild, Verified 06/29/23 14:04) HYPERACTIVE MUSCLE TREMORS Medication List - Last Reconciled 06/29/23 by Lena Cheung MD amlodipine 5 mg PO DAILY 90 days cholecalciferol (vitamin D3) 25 mcg PO DAILY 90 days diclofenac sodium 1% 4 grams topical QID PRN 1 month divalproex (Depakote) 125 mg PO BID 90 days lorazepam 0.5 mg PO BEDTIME PRN 20 days losartan 100 mg PO DAILY 90 days meclizine 25 mg PO DAILY PRN 7 days mirtazapine 15 mg PO BEDTIME 90 days oxycodone-acetaminophen 5-325 mg 1 tab PO Q8H 28 days pioglitazone 30 mg PO DAILY rosuvastatin 5 mg PO DAILY 90 days Tobacco use date assessed: 10/20/22 Fall risk assessment: No Falls in past year Last assessed Fall Risk: 06/29/23 Dental Screening Dental Screen Date: 06/29/23 Did you have a dental visit in the last 12 months?: No Did you have a dental problem in the last 6 months where you did not have access to dental care?: No Was dental information given to patient?: Patient has dentist HPI HPI Comments History of Present Illness Details This is a 73-year-old female with diabetes mellitus type 2 and seizures that comes for her physical exam. A1c within goal. LDL not on goal and statin will be increased from 5 mg to 10 mg. Declines having another diabetic eye exam. Has not had a seizure in over 6 months. Had colonoscopy but does not think it was that long. Mammogram up-to-date. [facility] Medical History (Updated 06/29/23 @ 14:39 by Lena Cheung MD) Rotator cuff tendonitis Headache Subdural hematoma Insomnia Seizures Lumbar degenerative disc disease Dyslipidemia Essential hypertension Diabetes mellitus Surgical History H/O brain surgery Back pain with history of spinal surgery History of laparoscopic cholecystectomy History of cataract surgery Family History Father Medical history unknown Mother Ovarian cancer Maternal Aunt Breast cancer Sister Ovarian cancer Social History Housing: House Alcohol intake: never Patient Tobacco Use Status: Never used Tobacco e-Cigarette/Vaping Use: Never Used Second Hand Smoke Exposure: No service: No Current occupational status: retired and disabled 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 Dillon Dias, Guera Tristan, Yo Miller and colleagues, with an educational aristides from [email or web address]. Review of Systems Const All systems reviewed & are unremarkable except as noted in HPI and below Eyes Reports no additional complaints, Denies change in vision and Denies other visual disturbances Card Denies chest pain at rest, Denies chest pain with activity, Denies edema, Denies irregular heart rhythm, Denies claudication, Denies dyspnea, Denies dyspnea on exertion, Denies orthopnea, Denies paroxysmal nocturnal dyspnea and Denies slow heart rate Resp Denies cough, Denies dyspnea and Denies dyspnea on exertion GI Denies abdominal pain, Denies change in bowel habits, Denies excessive flatus, Denies nausea and Denies vomiting Denies urinary incontinence, Denies urinary hesitancy and Denies urinary urgency Musc Denies abnormal gait, Denies atrophy, Denies deformity and Denies limited range of motion Skin/Breast Denies bleeding lesions, Denies changing lesions and Denies rash Neuro Denies abnormal gait and Denies lack of coordination Physical exam (Primary Care) Vital Signs: Last Vital Signs BP 142/90 H 06/29/23 13:48 BMI result Body Mass Index 25.4 Tobacco/Smoking Status: Tobacco use Status Tobacco use date assessed 10/20/22 06/29/23 13:49 Patient Tobacco Use Status Never used Tobacco 06/29/23 13:49 e-Cigarette/Vaping Use Never Used 06/29/23 13:49 Thrive Assessment: Date of Thrive Assessment Date Thrive assessed 10/20/22 06/29/23 13:49 Const Orientation/consciousness: patient oriented x3 HENMT Head: Yes normal to inspection, Yes normocephalic and Yes atraumatic Ears: external ears normal Eyes General: appearance normal, both eyes and all related structures Eyelids: Yes eyelids normal Conjunctivae: conjunctivae normal Neck Neck: Yes normal visual inspection and Yes supple Resp Effort & Inspection: normal respiratory effort Auscultation: clear to auscultation bilaterally Cardio Jugular venous distension: no JVD Rate: regular rate Rhythm: regular rhythm Heart sounds: S1 normal heart sound present and S2 normal heart sound present GI Inspection: Yes normal to inspection Palpation (GI): Soft to palpation and nontender Auscultation: normal bowel sounds Skin General skin exam: no rashes or lesions noted Neuro General: patient oriented x3 and no focal motor deficits Extrem General: Yes full ROM Psych Appearance: grossly normal Office Procedures Flu Questionnaire Does the patient have a severe egg allergy?: No Does the patient have severe life threatening allergies?: No Does the patient have a fever or illness today?: No Has the patient ever had Guillain-Spangler Syndrome?: No Has the patient ever had any past reaction to a flu shot?: Yes Results AMB Hemoglobin A1c AMB Hemoglobin A1c 6.6 % Last Edit by JANEL Del Rio on 06/29/23 14:01 Immunizations flu vacc [id number] 6mos up(PF) 60 mcg(15 mcgx4)/0.5 mL IM syringe Performing Provider: Lena Cheung MD Performing Location: [facility] Documented (not given) by: JANEL Del Rio on 06/29/23 13:57 Reason Not Given: Patient Refused Results Reviewed Results Reviewed: Laboratory Last Values Hgb A1c (Clinic) 6.6 % (4.0-6.0) H 06/29/23 13:50 Assessment and Plan Assessment & Plan (1) Physical exam: Code(s): Z00.00 - Encounter for general adult medical examination without abnormal findings Plan: Repeat in a year. (2) Diabetes mellitus: Code(s): E11.9 - Type 2 diabetes mellitus without complications Qualifiers: Diabetes mellitus type: type 2 Diabetes mellitus claim approver insulin use: without claim approver use Diabetes mellitus complication status: without complication Qualified Code(s): E11.9 - Type 2 diabetes mellitus without complications Plan: Continue Actos. A1c goal is equal or less than 7%. (3) Seizures: Code(s): R56.9 - Unspecified convulsions Plan: Continue divalproex. Orders: Orders AMB Hemoglobin A1c Today E11.9 - Type 2 diabetes mellitus without complications Influenza [id number] Immunization Today Z23 - Encounter for immunization Medications: New rosuvastatin 10 mg PO DAILY 90 days 90 tabs 1RF Discontinued rosuvastatin Discontinued Reason: Patient Completed Course 5 mg PO DAILY 90 days 90 tabs 1RF Coding Level of Care Code Est Pt Prev Care >65y(38921) Diagnoses Physical exam Z00.00 Type 2 diabetes mellitus without complication, without long-term current use of insulin E11.9 Diabetes mellitus type: type 2 Diabetes mellitus half-way insulin use: without half-way use Diabetes mellitus complication status: without complication Seizures R56.9 Time Spent (min) 33
[2023-06-29 14:41] VITALS: BP 138/85
== END 2023-06-29 14:15 | disposition home or self-care (01) ==
PROVIDERS: PCP Internal Medicine; Visit Provider Internal Medicine
DX: Z00.00 Encounter for general adult medical examination without abnormal findings (principal); E11.9 Type 2 diabetes mellitus without complications; R56.9 Unspecified convulsions
CPT/HCPCS: 83036; 99397

== ENCOUNTER 2023-09-12 09:54 | Outpatient (AMB) | payer OTHER, SELFPAY ==
[2023-09-12 09:55] VITALS: BP 182/98; BMI 25.6
--- NOTE | 2023-09-12 09:55 | MHC.PC.OV ---
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 Accompanied by: Self / Same As Patient Allergies ibuprofen [IBUPROFEN] Allergy (Intermediate, Verified 09/12/23 10:05) NAUSEA & VOMITING, involuntary movements lisinopril Allergy (Intermediate, Verified 09/12/23 10:05) stomach upset, abd pain meloxicam Allergy (Intermediate, Verified 09/12/23 10:05) involuntary movements metformin Allergy (Intermediate, Verified 09/12/23 10:05) diarrhea oseltamivir [From TAMIFLU] Allergy (Intermediate, Verified 09/12/23 10:05) NAUSEA & VOMITING tizanidine Allergy (Intermediate, Verified 09/12/23 10:05) involuntary movements ketorolac [From TORADOL] Adverse Reaction (Mild, Verified 09/12/23 10:05) HYPERACTIVE MUSCLE TREMORS Medication List - Last Reconciled 09/12/23 by Lena Cheung MD amlodipine 5 mg PO DAILY 90 days cholecalciferol (vitamin D3) 25 mcg PO DAILY 90 days diclofenac sodium 1% 4 grams topical QID PRN 1 month divalproex (Depakote) 125 mg PO BID 90 days lorazepam 0.5 mg PO BEDTIME PRN 20 days losartan 100 mg PO DAILY 90 days meclizine 25 mg PO DAILY PRN 7 days mirtazapine 15 mg PO BEDTIME 90 days oxycodone-acetaminophen 5-325 mg 1 tab PO Q8H 28 days pioglitazone 30 mg PO DAILY rosuvastatin 10 mg PO DAILY 90 days Tobacco use date assessed: 10/20/22 Fall risk assessment: No Falls in past year Last assessed Fall Risk: 09/12/23 HPI HPI Comments History of Present Illness Details This is a 73-year-old female with diabetes mellitus type 2 and seizures that comes today complaining of neck pain and thoracic spine pain that started about 2 weeks ago with no previous trauma. Spine is tender to palpation and the pain radiates to the arm and does not let her sleep. Blood glucose well control. Blood pressure elevated but she has not take her medications yet and blood pressure will be recheck in 3 weeks by nurse navigator. She has not had a seizure since she is in [facility]. [facility] Medical History Rotator cuff tendonitis Headache Subdural hematoma Insomnia Seizures Lumbar degenerative disc disease Dyslipidemia Essential hypertension Diabetes mellitus Surgical History H/O brain surgery Back pain with history of spinal surgery History of laparoscopic cholecystectomy History of cataract surgery Family History Father Medical history unknown Mother Ovarian cancer Maternal Aunt Breast cancer Sister Ovarian cancer Social History Housing: House Alcohol intake: never Patient Tobacco Use Status: Never used Tobacco e-Cigarette/Vaping Use: Never Used Second Hand Smoke Exposure: No service: No Current occupational status: retired and disabled 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 Dillon Dias, Guera Tristan, Yo Miller and colleagues, with an educational aristides from [employer]. Review of Systems Const All systems reviewed & are unremarkable except as noted in HPI and below Eyes Reports no additional complaints, Denies change in vision and Denies other visual disturbances ENT Reports neck pain Card Denies chest pain at rest, Denies chest pain with activity, Denies edema, Denies irregular heart rhythm, Denies claudication, Denies dyspnea, Denies dyspnea on exertion, Denies orthopnea, Denies paroxysmal nocturnal dyspnea and Denies slow heart rate Resp Denies cough, Denies dyspnea and Denies dyspnea on exertion GI Denies abdominal pain, Denies change in bowel habits, Denies excessive flatus, Denies nausea and Denies vomiting Denies urinary incontinence, Denies urinary hesitancy and Denies urinary urgency Musc Denies abnormal gait, Reports back pain, Denies atrophy, Denies deformity, Reports arthralgias, Reports limited range of motion, Reports neck pain and Reports numbness Skin/Breast Denies bleeding lesions, Denies changing lesions and Denies rash Neuro Denies abnormal gait, Denies behavioral changes, Denies confusion, Denies lack of coordination and Reports numbness Psych Denies behavioral changes and Denies confusion Physical exam (Primary Care) Vital Signs: Last Vital Signs BP 180/90 H 09/12/23 10:18 BMI result Body Mass Index 25.6 Tobacco/Smoking Status: Tobacco use Status Tobacco use date assessed 10/20/22 09/12/23 10:02 Patient Tobacco Use Status Never used Tobacco 09/12/23 10:02 e-Cigarette/Vaping Use Never Used 09/12/23 10:02 Thrive Assessment: Date of Thrive Assessment Date Thrive assessed 10/20/22 09/12/23 10:02 Const General: No confusion Orientation/consciousness: patient oriented x3 and No confusion HENMT Head: Yes normal to inspection, Yes normocephalic and Yes atraumatic Ears: external ears normal Eyes General: appearance normal, both eyes and all related structures Eyelids: Yes eyelids normal Conjunctivae: conjunctivae normal Neck Neck: Yes normal visual inspection and Yes supple Resp Effort & Inspection: normal respiratory effort Auscultation: clear to auscultation bilaterally Cardio Jugular venous distension: no JVD Rate: regular rate Rhythm: regular rhythm Heart sounds: S1 normal heart sound present and S2 normal heart sound present GI Inspection: Yes normal to inspection Palpation (GI): Soft to palpation and nontender Auscultation: normal bowel sounds Back/Spine/Pelvis Thoracic/Lumbar Spine: thoracic spinal tenderness Skin General skin exam: no rashes or lesions noted Neuro General: patient oriented x3, no focal motor deficits and No confusion Extrem General: Yes full ROM Psych Appearance: grossly normal Assessment and Plan Assessment & Plan (1) Thoracic spine pain: Code(s): M54.6 - Pain in thoracic spine Plan: Referred to [facility]. X-ray ordered. Continue Percocet as needed. (2) Neck pain: Code(s): M54.2 - Cervicalgia Plan: Referred to [facility]. X-ray order. Continue Percocet as needed. 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 A1c goal is equal or less than 7%. (4) Seizures: Code(s): R56.9 - Unspecified convulsions Plan: Continue Depakote. Orders: Orders Microalbumin, Random (w Creat) Today E11.9 - Type 2 diabetes mellitus without complications Comprehensive [place]. Panel Fast Today M54.2 - Cervicalgia XR thoracic spine 2V Today M54.6 - Pain in thoracic spine XR cervical spine 2V Today M54.2 - Cervicalgia Vitamin D 25-OH Total Today E55.9 - Vitamin D deficiency, unspecified Lipid Panel Today E78.5 - Hyperlipidemia, unspecified Referrals Orthopedics Referral M54.6 - Pain in thoracic spine Medications: Refilled oxycodone-acetaminophen 5-325 mg 1 tab PO Q8H 84 tabs 0RF pain 28 days Coding Level of Care Code Est Pt Level 4 (52261) Diagnoses Thoracic spine pain M54.6 Neck pain M54.2 Type 2 diabetes mellitus without complication, without long-term current use of insulin E11.9 Diabetes mellitus complication status: without complication Diabetes mellitus jail insulin use: without long wall mining machine helper use Diabetes mellitus type: type 2 Seizures R56.9 Time Spent (min) 23
[2023-09-12 10:18] VITALS: BP 180/90
== END 2023-09-12 10:17 | disposition home or self-care (01) ==
PROVIDERS: PCP Internal Medicine; Visit Provider Internal Medicine
DX: M54.6 Pain in thoracic spine (principal); M54.2 Cervicalgia; E11.9 Type 2 diabetes mellitus without complications; R56.9 Unspecified convulsions
CPT/HCPCS: 99214

== ENCOUNTER 2023-09-12 10:27 | Outpatient (REF) | payer OTHER, SELFPAY ==
--- NOTE | ~2023-09-12 | XR_ITS ---
EXAMINATION: XR CERVICAL SPINE CLINICAL INFORMATION: Cervicalgia COMPARISON: None available. TECHNIQUE: 4 views of the cervical spine were obtained. FINDINGS: The bones are diffusely demineralized. The tip of the odontoid is obscured on the open-mouth view. The inferior endplate of C7 is obscured by the soft tissues of the patient's shoulders on the lateral view. There is no fracture. Prevertebral soft tissues are within normal limits. There is minimal retrolisthesis of C4 respect to C5. There is mild disc space narrowing at C5-C6 with large marginal marginal osteophyte formation. There are degenerative changes of the uncovertebral joints in the mid cervical spine. There is straightening of the usual cervical lordosis which can be seen with muscle spasm or be due to patient positioning. XR/XR cervical spine 2V IMPRESSION: 1. Degenerative disc disease at C5-C6. 2. Minimal retrolisthesis of C4 respect to C5. 3. Straightening of the usual cervical lordosis which can be seen with muscle spasm or be due to patient positioning.
--- NOTE | ~2023-09-12 | XR_ITS ---
EXAMINATION: XR THORACOLUMBAR SPINE CLINICAL INFORMATION: Pain in thoracic spine COMPARISON: Thoracic spine 05/11/2018 TECHNIQUE: Upper AP and lateral views of the thoracic spine FINDINGS: There is a rightward convex scoliotic curvature of the midthoracic spine that is unchanged. The height of thoracic vertebral vertebral bodies is well-maintained. There is multilevel disc space narrowing. No acute fracture. No acute subluxations. Surgical clips are seen in the upper quadrant are consistent with prior cholecystectomy. XR/XR thoracic spine 2V IMPRESSION: Stable appearing rightward convex thoracic scoliosis.
== END 2023-09-12 10:28 | disposition home or self-care (01) ==
LOC: HO.XRAY 10:27
PROVIDERS: PCP Internal Medicine; Visit Provider Internal Medicine
DX: M54.6 Pain in thoracic spine (principal); M54.2 Cervicalgia
CPT/HCPCS: 72040; 72070

== ENCOUNTER 2023-10-25 09:55 | Outpatient (REF) | payer OTHER, SELFPAY ==
--- NOTE | ~2023-10-25 | XR_ITS ---
EXAMINATION: XR SHOULDER, RIGHT CLINICAL INFORMATION: Right shoulder pain COMPARISON: Right shoulder x-ray on 06/21/2022 TECHNIQUE: AP external rotation, scapular Y, and axillary views of the right shoulder. FINDINGS: BONES: Bony structures are intact. There is no focal bone destruction or periosteal reaction seen. JOINTS: Alignment of joints is normal. SOFT TISSUE: Soft tissue is normal. No radiopaque foreign body or abnormal air collection is seen. XR/XR shoulder RT min 2V IMPRESSION: 1. Unchanged Normal x-rays of right shoulder. 2. No fracture or dislocation or signs of osteomyelitis are found.
== END 2023-10-25 09:56 | disposition home or self-care (01) ==
LOC: HO.HOSX 09:55
PROVIDERS: Visit Provider Physician Assistant
DX: M19.011 Primary osteoarthritis, right shoulder (principal); M75.81 Other shoulder lesions, right shoulder; M54.2 Cervicalgia; Z79.891 Long term (current) use of opiate analgesic
CPT/HCPCS: 73030; 99212

== ENCOUNTER 2023-10-25 15:15 | Outpatient (AMB) | payer OTHER, SELFPAY ==
--- NOTE | 2023-10-25 15:30 | A.OFFVIS_ITS ---
Intake Intake Visit Reasons: ov-Pain in right shoulder Intake Note: 73 year old right hand dominant female presents to the office today for pain in her right shoulder pain. Pt states this pain started about 2 months ago with no known trauma. Pt states the pain radiates from her neck to her right shoulder. Pt states its hard to sleep at night due to the pain. The pain is mostly when she is laying on it but she does experience some pain during the day. Pt states she has tried heat and ice but has not had any relief. Pt states when she takes oxycodone it helps but the pain never goes away fully. Accompanied by: Daughter Allergies ibuprofen [IBUPROFEN] Allergy (Intermediate, Verified 10/25/23 15:30) NAUSEA & VOMITING, involuntary movements lisinopril Allergy (Intermediate, Verified 10/25/23 15:30) stomach upset, abd pain meloxicam Allergy (Intermediate, Verified 10/25/23 15:30) involuntary movements metformin Allergy (Intermediate, Verified 10/25/23 15:30) diarrhea oseltamivir [From TAMIFLU] Allergy (Intermediate, Verified 10/25/23 15:30) NAUSEA & VOMITING tizanidine Allergy (Intermediate, Verified 10/25/23 15:30) involuntary movements ketorolac [From TORADOL] Adverse Reaction (Mild, Verified 10/25/23 15:30) HYPERACTIVE MUSCLE TREMORS HPI ov-Pain in right shoulder HPI Details 73-year-old right hand dominant female anna woods returns to the office today for a follow-up of right shoulder pain for about 2 months. She currently states she has pain in her right shoulder which radiates up to her neck. Her pain is aggravated with laying which makes it hard to sleep at night. She finds no relief with ice and heat. She takes oxycodone for her pain with mild relief. She has not had any previous injury. She was working with physical therapy but had to discontinue due to her history of hypertension. [facility] Medical History Rotator cuff tendonitis Headache Subdural hematoma Insomnia Seizures Lumbar degenerative disc disease Dyslipidemia Essential hypertension Diabetes mellitus Surgical History H/O brain surgery Back pain with history of spinal surgery History of laparoscopic cholecystectomy History of cataract surgery Family History Father Medical history unknown Mother Ovarian cancer Maternal Aunt Breast cancer Sister Ovarian cancer Social History Housing: House Alcohol intake: never Patient Tobacco Use Status: Never used Tobacco e-Cigarette/Vaping Use: Never Used Second Hand Smoke Exposure: No service: No Current occupational status: retired and disabled 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 Cognitive needs: No Hearing needs: No Vision needs: No Review of Systems Const All systems reviewed & are unremarkable except as noted in HPI and below Physical Exam Const General: cooperative, healthy appearing, comfortable, no acute distress, well developed and alert Orientation/consciousness: patient oriented x3 HEENT Head: Yes normal to inspection, Yes normocephalic and Yes atraumatic Eyes General: appearance normal, both eyes and all related structures Resp Effort & Inspection: normal respiratory effort and able to speak in complete sentences Cardio Peripheral pulses: Peripheral pulses 2+ throughout Neuro General: patient oriented x3 Extrem Other: Left shoulder: Norm to inspection. Full ROM in all planes. Tenderness over the AC joint and bicipital groove. Pain along the impingement arc. No pain with cross body abduction. 5/5 rotator cuff. Positive O'Briens. Tenderness along the trapezium to the paraspinal muscle of the C-spine. NVI. Results Reviewed Results Reviewed: Xrays were obtained in the office today and personally reviewed by me of the right shoulder show mild acj oa Assessment & Plan Assessment & Plan (1) Rotator cuff tendonitis: Code(s): M75.80 - Other shoulder lesions, unspecified shoulder Qualifiers: Laterality: right Qualified Code(s): M75.81 - Other shoulder lesions, right shoulder (2) Arthritis of right acromioclavicular joint: Code(s): M19.011 - Primary osteoarthritis, right shoulder Plan She is not interested in steroid injection today as she feels she had a bad reaction last time. She does have discomfort in neck and upper scapular region therefore I put in an order to meet Dr. Marie as her cervical and thoracic x- rays show degenerative changes and concerns of muscle spasms. She is content with this plan and see me back as needed. Orders: Orders XR shoulder RT min 2V Today M25.511 - Pain in right shoulder Medications: New celecoxib (Celebrex) 200 mg PO BID 60 caps 3RF 30 days Patient Instructions: Scribed for Javier Washburn PA-C, by Musa Jurado, director of medical staff services, on 10/25/2023 at 3:30 PM EST. Javier Zepeda PA-C, have personally reviewed and agree with the information entered by the scribe. Coding Level of Care Code Est Pt Level 3 (42459) Diagnoses Tendinitis of right rotator cuff M75.81 Laterality: right Arthritis of right acromioclavicular joint M19.011
== END 2023-10-25 15:53 | disposition home or self-care (01) ==
PROVIDERS: PCP Internal Medicine; Visit Provider Physician Assistant
DX: M75.81 Other shoulder lesions, right shoulder (principal); M19.011 Primary osteoarthritis, right shoulder
CPT/HCPCS: 99214

== ENCOUNTER 2023-11-09 14:29 | Outpatient (AMB) | payer OTHER, SELFPAY ==
[2023-11-09 14:36] VITALS: BP 200/100; BMI 27.0
--- NOTE | 2023-11-09 14:36 | A.OFFPC_ITS ---
Vital Signs 11/09/23 14:36 11/09/23 16:55 Height 4 ft 11 in Weight 133 lb 10.616 oz BMI 27.0 BP 200/100 H 180/90 H Blood Pressure Location Lt brachial Lt brachial Position Sitting Sitting Intake Visit Reasons: dm Intake Note: Patient here for a follow up DM Medical Staff Director Required: No Accompanied by: Self / Same As Patient Allergies ibuprofen [IBUPROFEN] Allergy (Intermediate, Verified 11/09/23 15:13) NAUSEA & VOMITING, involuntary movements lisinopril Allergy (Intermediate, Verified 11/09/23 15:13) stomach upset, abd pain meloxicam Allergy (Intermediate, Verified 11/09/23 15:13) involuntary movements metformin Allergy (Intermediate, Verified 11/09/23 15:13) diarrhea oseltamivir [From TAMIFLU] Allergy (Intermediate, Verified 11/09/23 15:13) NAUSEA & VOMITING tizanidine Allergy (Intermediate, Verified 11/09/23 15:13) involuntary movements ketorolac [From TORADOL] Adverse Reaction (Mild, Verified 11/09/23 15:13) HYPERACTIVE MUSCLE TREMORS Medication List - Last Reconciled 11/09/23 by Lena Cheung MD amlodipine 5 mg PO DAILY 90 days celecoxib (Celebrex) 200 mg PO BID 30 days cholecalciferol (vitamin D3) 25 mcg PO DAILY 90 days diclofenac sodium 1% 4 grams topical QID PRN 1 month divalproex (Depakote) 125 mg PO BID 90 days lidocaine 5% 1 appl topical BEDTIME PRN 2 weeks lorazepam 0.5 mg PO BEDTIME PRN 20 days losartan 100 mg PO DAILY 90 days meclizine 25 mg PO DAILY PRN 7 days methocarbamol 500 mg PO TID 5 days mirtazapine 15 mg PO BEDTIME 90 days oxycodone-acetaminophen 5-325 mg 1 tab PO Q8H 28 days pioglitazone 30 mg PO DAILY rosuvastatin 10 mg PO DAILY 90 days Tobacco use date assessed: 11/09/23 Fall risk assessment: No Falls in past year Last assessed Fall Risk: 11/09/23 Dental Screening Dental Screen Date: 11/09/23 Did you have a dental visit in the last 12 months?: Yes Did you have a dental problem in the last 6 months where you did not have access to dental care?: No Was dental information given to patient?: Patient has dentist HPI HPI Comments History of Present Illness Details This is 73-year-old female with diabetes mellitus type 2, hypertension, hyperlipidemia and seizures that comes today for follow-up on her conditions. A1c elevated and I will increase Actos from 30 mg to 45 mg. Blood pressure elev ated and I will increase amlodipine from 5 mg to 10 mg. She will continue losartan 100 mg. Blood pressure will be recheck in 3 weeks by nurse navigator. Last LDL was close to goal and lipid panel will be repeated. Has not had a seizure in over 6 months. No chest pain or shortness of breath. [facility] Medical History (Updated 11/09/23 @ 16:56 by Lena Cheung MD) Rotator cuff tendonitis Headache Subdural hematoma Insomnia Seizures Lumbar degenerative disc disease Dyslipidemia Essential hypertension Diabetes mellitus Surgical History H/O brain surgery Back pain with history of spinal surgery History of laparoscopic cholecystectomy History of cataract surgery Family History Father Medical history unknown Mother Ovarian cancer Maternal Aunt Breast cancer Sister Ovarian cancer Social History Housing: House Alcohol intake: never Patient Tobacco Use Status: Never used Tobacco e-Cigarette/Vaping Use: Never Used Second Hand Smoke Exposure: No service: No Current occupational status: retired and disabled 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 1. Little interest or pleasure in doing things: not at all 2. Feeling down, depressed, or hopeless: not at all 3. Trouble falling or staying asleep, or sleeping too much: not at all 4. Feeling tired or having little energy: not at all 5. Poor appetite or overeating: not at all 6. Feeling bad about yourself - or that you are a failure or have let yourself or your family down: not at all 7. Trouble concentrating on things, such as reading the newspaper or watching television: not at all 8. Moving or speaking so slowly that other people could have noticed. Or the opposite - being so fidgety or restless that you have been moving around a lot more than usual: not at all 9. Thoughts that you would be better off or of hurting yourself in some way: not at all Total score: 0 Depression Screening Interpretation: Negative Depression Screening Done: Yes 70269 - PHQ-9 Billing: Yes Source: Developed by Drs. Dillon Dias, Guera Tristan, Yo Miller and colleagues, with an educational aristides from [employer]. Thrive Questionnaire Date Thrive assessed: 11/09/23 I am a: Patient What is your living situation today?: I have a steady place to live Within the past 12 months, did the food you bought not last and you didn't have the money to get more?: Never true Within the past 12 months, did you worry whether your food would run out before you got money to buy more?: Never true Do you have trouble paying for medicines?: No Do you have trouble getting transportation to medical appointments?: No Do you have trouble paying your heating and electricity bill?: No Do you have trouble taking care of your child, family member or friend?: No Do you have trouble with day-to-day activities such as bathing, preparing meals, shopping, managing finances, etc.?: No Are you currently unemployed and looking for a job?: No Are you interested in more education?: No Please select the resources that you would like help with: None Currently or been in a relationship where the following occur: no concerns reported THRIVE Score: 0 AUDIT C Alcohol Use Questionnaire (AUDIT-C) 1. How often do you have a drink containing alcohol?: Never Total Score: 0 MARY LOU-7 AMB Questionnaire MARY LOU-7 Date MARY LOU - 7 assessed: 11/09/23 Feeling nervous, anxious, or on edge: 0 = Not at all Not being able to stop or control worryin = Not at all Worrying too much about different things: 0 = Not at all Trouble relaxin = Not at all Being so restless that it is hard to sit still: 0 = Not at all Becoming easily annoyed or irritable: 0 = Not at all Feeling afraid as if something awful might happen: 0 = Not at all Total MARY LOU-7 score (0-4 normal; 5-9 mild; 10-14 moderate; 15-21 severe): 0 Source: Developed by Drs. Dillon Dias, Guera Tristan, Yo Miller and colleagues, with an educational aristides from [employer]. MARY LOU-7 Assessment Billing MARY LOU-7 Assessment Tool: MARY LOU-7 Assessment 61232 Review of Systems Const All systems reviewed & are unremarkable except as noted in HPI and below Eyes Reports no additional complaints, Denies change in vision and Denies other visual disturbances Card Denies chest pain at rest, Denies chest pain with activity, Denies edema, Denies irregular heart rhythm, Denies claudication, Denies dyspnea, Denies dyspnea on exertion, Denies orthopnea, Denies paroxysmal nocturnal dyspnea and Denies slow heart rate Resp Denies cough, Denies dyspnea and Denies dyspnea on exertion GI Denies abdominal pain, Denies change in bowel habits, Denies excessive flatus, Denies nausea and Denies vomiting Denies urinary incontinence, Denies urinary hesitancy and Denies urinary urgency Musc Denies abnormal gait, Denies atrophy, Denies deformity and Denies limited range of motion Skin/Breast Denies bleeding lesions, Denies changing lesions and Denies rash Neuro Denies abnormal gait, Denies behavioral changes and Denies lack of coordination Psych Denies behavioral changes Physical exam (Primary Care) Vital Signs: Last Vital Signs BP 200/100 H 11/09/23 14:36 BMI result Body Mass Index 27.0 Tobacco/Smoking Status: Tobacco use Status Tobacco use date assessed 11/09/23 11/09/23 14:45 Patient Tobacco Use Status Never used Tobacco 11/09/23 14:45 e-Cigarette/Vaping Use Never Used 11/09/23 14:45 PHQ-9: PHQ-9 Score PHQ-9: Total score 0 11/09/23 15:23 Depression Screening Interpretation: Negative Thrive Assessment: Date of Thrive Assessment Date Thrive assessed 11/09/23 11/09/23 14:45 Currently or been in a relationship where the following occur: no concerns reported Eyes General: appearance normal, both eyes and all related structures Eyelids: Yes eyelids normal Conjunctivae: conjunctivae normal Neck Neck: Yes normal visual inspection and Yes supple Resp Effort & Inspection: normal respiratory effort Auscultation: clear to auscultation bilaterally Cardio Jugular venous distension: no JVD Rate: regular rate Rhythm: regular rhythm Heart sounds: S1 normal heart sound present and S2 normal heart sound present Extrem General: Yes full ROM Results AMB Hemoglobin A1c AMB Hemoglobin A1c 7.1 % Last Edit by JANEL Del Rio on 11/09/23 14:4 7 Results Reviewed Results Reviewed: Laboratory Last Values Hgb A1c (Clinic) 7.1 % (4.0-6.0) H 11/09/23 14:35 Assessment and Plan Assessment & Plan (1) Diabetes mellitus: Code(s): E11.9 - Type 2 diabetes mellitus without complications Qualifiers: Diabetes mellitus type: type 2 Diabetes mellitus group home 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 A1c goal is equal or less than 7%. (2) Seizures: Code(s): R56.9 - Unspecified convulsions Plan: Continue Depakote. (3) Essential hypertension: Code(s): I10 - Essential (primary) hypertension Plan: Continue losartan 100 mg once a day. Increase amlodipine from 5 mg to 10 mg once a day. Blood pressure goal is equal or less than 130/80. Recheck blood pressure with nurse navigator in 3 weeks. (4) Hyperlipidemia LDL goal <70: Code(s): E78.5 - Hyperlipidemia, unspecified Plan: Continue statins. Repeat lipid panel. LDL goal is less than 70. Orders: Orders AMB Hemoglobin A1c Today E11.9 - Type 2 diabetes mellitus without complications Lipid Panel 4 Months E78.5 - Hyperlipidemia, unspecified Vitamin D 25-OH Total 4 Months E55.9 - Vitamin D deficiency, unspecified Microalbumin, Random (w Creat) 4 Months E11.9 - Type 2 diabetes mellitus without complications Comprehensive Bernice. Panel Fast 4 Months M54.6 - Pain in thoracic spine Medications: New amlodipine 10 mg PO DAILY 90 days 90 tabs 1RF I10 - Essential (primary) hypertension pioglitazone 45 mg PO DAILY 90 days 90 tabs 0RF E11.9 - Type 2 diabetes mellitus without complications Refilled oxycodone-acetaminophen 5-325 mg 1 tab PO Q8H 28 days 84 tabs 0RF pain losartan 100 mg PO DAILY 90 days 90 tabs 1RF Discontinued pioglitazone Discontinued Reason: Patient Completed Course 30 mg PO DAILY 90 tabs 3RF amlodipine Discontinued Reason: Patient Completed Course 5 mg PO DAILY 90 days 90 tabs 1RF Coding Level of Care Code Est Pt Level 4 (85998) Diagnoses Type 2 diabetes mellitus without complication, without long-term current use of insulin E11.9 Diabetes mellitus type: type 2 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
[2023-11-09 16:55] VITALS: BP 180/90
== END 2023-11-09 15:32 | disposition home or self-care (01) ==
PROVIDERS: PCP Internal Medicine; Visit Provider Internal Medicine
DX: E11.9 Type 2 diabetes mellitus without complications (principal); R56.9 Unspecified convulsions; I10 Essential (primary) hypertension; E78.5 Hyperlipidemia, unspecified
CPT/HCPCS: 83036; 99214

== ENCOUNTER 2023-11-09 15:35 | Outpatient (REF) | payer OTHER, SELFPAY | END 2023-11-09 15:36 | disposition home or self-care (01) | LOC: HO.MAMMO 15:35 | PROVIDERS: PCP Internal Medicine; Visit Provider Internal Medicine | DX: Z12.31 Encounter for screening mammogram for malignant neoplasm of breast (principal) | CPT/HCPCS: 77063; 77067 ==

== ENCOUNTER → 2023-11-09 16:30 | Outpatient (BNV) | payer OTHER, SELFPAY | PROVIDERS: PCP Internal Medicine; Visit Provider Radiology Diagnostic Radiology | DX: Z12.31 Encounter for screening mammogram for malignant neoplasm of breast (principal) | CPT/HCPCS: 77063; 77067 ==

== ENCOUNTER 2023-12-13 10:52 | Outpatient (AMB) | payer OTHER, SELFPAY ==
--- NOTE | 2023-12-13 11:10 | A.OFFVIS_ITS ---
Intake Vital Signs 12/13/23 11:15 Height 4 ft 11 in Intake Visit Reasons: new prob- cervical/thoracic pain Intake Note: Sonam is a 73 year old female who presents today for a evaluation of her back pain. Patient reports ongoing pain for many months with no history of treatment. No hx of injury. She states that her pain is worse when she is lifting heavy objects and laying down. Patient has tried and failed heat/icing. Patient is finding relief when taking percocet which was prescribed by her PCP. Conservation Agent Required: Yes Allergies ibuprofen [IBUPROFEN] Allergy (Intermediate, Verified 12/13/23 11:14) NAUSEA & VOMITING, involuntary movements lisinopril Allergy (Intermediate, Verified 12/13/23 11:14) stomach upset, abd pain meloxicam Allergy (Intermediate, Verified 12/13/23 11:14) involuntary movements metformin Allergy (Intermediate, Verified 12/13/23 11:14) diarrhea oseltamivir [From TAMIFLU] Allergy (Intermediate, Verified 12/13/23 11:14) NAUSEA & VOMITING tizanidine Allergy (Intermediate, Verified 12/13/23 11:14) involuntary movements ketorolac [From TORADOL] Adverse Reaction (Mild, Verified 12/13/23 11:14) HYPERACTIVE MUSCLE TREMORS Medication List - Last Reconciled 12/13/23 by Alisia Hong MD amlodipine 10 mg PO DAILY 90 days celecoxib (Celebrex) 200 mg PO BID 30 days cholecalciferol (vitamin D3) 25 mcg PO DAILY 90 days diclofenac sodium 1% 4 grams topical QID PRN 1 month divalproex (Depakote) 125 mg PO BID 90 days lidocaine 5% 1 appl topical BEDTIME PRN 2 weeks lorazepam 0.5 mg PO BEDTIME PRN 20 days losartan 100 mg PO DAILY 90 days meclizine 25 mg PO DAILY PRN 7 days methocarbamol 500 mg PO TID 5 days mirtazapine 15 mg PO BEDTIME 90 days oxycodone-acetaminophen 5-325 mg 1 tab PO Q8H 28 days pioglitazone 45 mg PO DAILY 90 days rosuvastatin 10 mg PO DAILY 90 days HPI HPI Comments History of Present Illness Details Was seeing ortho for right shoulder pain, referred to Physiatry for upper back/neck pain. Been going on since 3 months ago without any inciting injuries. Denies chronic neck issues. Points to upper trapezius, going down to arm. Denies numbness. Denies weakness. Full ROM on right shoulder but unable to lift anything above head. Treatment done so far: celecoxib, muscle relaxer injection - right shoulder by ortho, did not help much [facility] Medical History (Updated 12/13/23 @ 11:27 by Alisia Hong MD) Myofascial pain Rotator cuff tendonitis Headache Subdural hematoma Insomnia Seizures Lumbar degenerative disc disease Dyslipidemia Essential hypertension Diabetes mellitus Surgical History H/O brain surgery Back pain with history of spinal surgery History of laparoscopic cholecystectomy History of cataract surgery Family History Father Medical history unknown Mother Ovarian cancer Maternal Aunt Breast cancer Sister Ovarian cancer Social History Housing: House Alcohol intake: never Patient Tobacco Use Status: Never used Tobacco e-Cigarette/Vaping Use: Never Used Second Hand Smoke Exposure: No service: No Current occupational status: retired and disabled 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 Patient was appropriately conversant and oriented. Good historian. MSK: Inspection reveals appropriate head and neck positioning. Tends to lean to the right side, history of scoliosis. Trigger points noted on right upper trapezius and rhomboids.. Cervical ROM was full. Spurling's sign negative. Bilateral shoulder, elbow and wrist ROM WNL. No ligamentous laxity or crepitance. No increased effusion. Negative Blakely sign. Strength is 5/5 in all muscle groups tested. No increased tone noted. Neurological: Neurologic examination of the upper and lower extremities was nonfocal with intact sensation, muscle stretch reflexes and without focal motor deficits . Don?s negative bilaterally. Gait is non-antalgic without loss of balance. Patient was able to perform heel walk and toe walk. Results Reviewed Results Reviewed: I independently reviewed the results of the following: Cervical x-rays reviewed-loss of lordosis, spondylosis C5-6 Thoracic x-ray showed right convexity Shoulder x-ray normal I reviewed records from the following: Ortho Assessment & Plan Assessment & Plan (1) Myofascial pain: Code(s): M79.18 - Myalgia, other site Plan Trigger points in right upper trapezius. Do not see any signs of cervical radiculopathy or myelopathy. No signs of rotator cuff injury. Recommended trial of physical therapy 1st. If not improved we could trial trigger point injections. Referral to PT placed. She is leaving for [place] in December. Will re-evaluate in January when she comes back. Assessment and plan discussed with patient, and patient was agreeable. All questions were answered thoroughly. Alisia Hong MD, NATALIYA Board Certified, [place] [employer] and [employer] (ABPMR) Board Certified, [place] [employer] Electrodiagnostic [employer] (ABEM) Orders: Orders PT Evaluation and Treatment Today M79.18 - Myalgia, other site Coding Level of Care Code New Pt Level 4 (72339) Diagnoses Myofascial pain M79.18
== END 2023-12-13 11:35 | disposition home or self-care (01) ==
PROVIDERS: PCP Internal Medicine; Visit Provider Physical Medicine & Rehabilitation
DX: M79.18 Myalgia, other site (principal)
CPT/HCPCS: 99204

== ENCOUNTER → 2023-12-13 10:52 | Outpatient (BNVA) | payer OTHER, SELFPAY | PROVIDERS: PCP Internal Medicine; Visit Provider Physical Medicine & Rehabilitation | DX: M79.18 Myalgia, other site (principal); M54.9 Dorsalgia, unspecified | CPT/HCPCS: 99202 ==

== ENCOUNTER 2024-02-15 11:17 | Outpatient (AMB) | payer OTHER, SELFPAY ==
--- NOTE | 2024-02-15 11:19 | MHC.OFFVIS ---
Vital Signs 02/15/24 11:21 Height 4 ft 11 in Weight 133 lb BMI 26.9 Intake Visit Reasons: OV-cervical/thoracic pain Intake Note: Sonam is a 73 year old female who presents today for a follow up of her right upper trapezius myofacial pain. At her last visit she was referred to PT, if no improvement we would consider trigger point injections. Patient was seen for two visits at PT, but was placed on hold due to concerns of high BP. Patient reports that she is doing well, she is still having pain in the right shoulder. No changes in symptoms since she was seen last. She is interested in injections. She is currently taking taylenol or ibuprofen which gives mild releief. Clinical Research Scientist Required: Yes Allergies ibuprofen [IBUPROFEN] Allergy (Intermediate, Verified 12/13/23 11:14) NAUSEA & VOMITING, involuntary movements lisinopril Allergy (Intermediate, Verified 12/13/23 11:14) stomach upset, abd pain meloxicam Allergy (Intermediate, Verified 12/13/23 11:14) involuntary movements metformin Allergy (Intermediate, Verified 12/13/23 11:14) diarrhea oseltamivir [From TAMIFLU] Allergy (Intermediate, Verified 12/13/23 11:14) NAUSEA & VOMITING tizanidine Allergy (Intermediate, Verified 12/13/23 11:14) involuntary movements ketorolac [From TORADOL] Adverse Reaction (Mild, Verified 12/13/23 11:14) HYPERACTIVE MUSCLE TREMORS Medication List - Last Reconciled 02/15/24 by Alisia Hong MD amlodipine 10 mg PO DAILY 90 days celecoxib (Celebrex) 200 mg PO BID 30 days cholecalciferol (vitamin D3) 25 mcg PO DAILY 90 days diclofenac sodium 1% 4 grams topical QID PRN 1 month divalproex (Depakote) 125 mg PO BID 90 days lidocaine 5% 1 appl topical BEDTIME PRN 2 weeks lorazepam 0.5 mg PO BEDTIME PRN 20 days losartan 100 mg PO DAILY 90 days meclizine 25 mg PO DAILY PRN 7 days methocarbamol 500 mg PO TID 5 days mirtazapine 15 mg PO BEDTIME 90 days oxycodone-acetaminophen 5-325 mg 1 tab PO Q8H 28 days pioglitazone 45 mg PO DAILY 90 days rosuvastatin 10 mg PO DAILY 90 days HPI Comments Details: Was seeing ortho for right shoulder pain, referred to Physiatry for upper back/neck pain. Been going on since a few months ago without any inciting injuries. Denies chronic neck issues. Points to upper trapezius, going down to arm. Denies numbness. Denies weakness. Full ROM on right shoulder but unable to lift anything above head. Treatment done so far: celecoxib, muscle relaxer injection - right shoulder by ortho, did not help much We tried PT but was discharged due to elevated BP (donal pyle 10/28/23) - last seen by Dr. Corey Cheung 11/09 and adjusted dose of Amlodipine, she checks at home but ranges SBP 130-180. PFSH Medical History Myofascial pain Rotator cuff tendonitis Headache Subdural hematoma Insomnia Seizures Lumbar degenerative disc disease Dyslipidemia Essential hypertension Diabetes mellitus Surgical History H/O brain surgery Back pain with history of spinal surgery History of laparoscopic cholecystectomy History of cataract surgery Family History Father Medical history unknown Mother Ovarian cancer Maternal Aunt Breast cancer Sister Ovarian cancer Social History Housing: House Alcohol intake: never Patient Tobacco Use Status: Never used Tobacco e-Cigarette/Vaping Use: Never Used Second Hand Smoke Exposure: No service: No Current occupational status: retired and disabled 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 Do not see any signs of cervical radiculopathy or myelopathy. No signs of rotator cuff injury. Tried PT but unable due to elevated BP. BP being managed by PCP. Suggested trial of TPI. She wants to proceed. We will schedule. Assessment and plan discussed with patient, and patient was agreeable. All questions were answered thoroughly. Alisia Hong MD, NATALIYA Board Certified, [place] [employer] and [employer] (ABPMR) Board Certified, [place] [employer] Electrodiagnostic [employer] (ABEM) Coding Level of Care Code Est Pt Level 3 (63319) Diagnoses Myofascial pain M79.18
[2024-02-15 11:21] VITALS: BMI 26.9
== END 2024-02-15 11:40 | disposition home or self-care (01) ==
PROVIDERS: PCP Internal Medicine; Visit Provider Physical Medicine & Rehabilitation
DX: M79.18 Myalgia, other site (principal)
CPT/HCPCS: 99213

== ENCOUNTER → 2024-02-15 11:17 | Outpatient (BNVA) | payer OTHER, SELFPAY | PROVIDERS: PCP Internal Medicine; Visit Provider Physical Medicine & Rehabilitation | DX: M79.18 Myalgia, other site (principal) | CPT/HCPCS: 99212 ==

== ENCOUNTER 2024-03-20 10:58 | Outpatient (AMB) | payer OTHER, SELFPAY ==
--- NOTE | 2024-03-20 11:21 | A.OFFVIS_ITS ---
Intake Visit Reasons: O/V RT shdr Trig inj #1 Intake Note: Sonam is a 73 year old right hand dominant female who presents today for right shoulder trigger injection #1. Patient has a couple questions before she gets the injection. Automation And Controls Supervisor Services: Automation And Controls Supervisor Present Allergies ibuprofen [IBUPROFEN] Allergy (Intermediate, Verified 03/20/24 11:22) NAUSEA & VOMITING, involuntary movements lisinopril Allergy (Intermediate, Verified 03/20/24 11:22) stomach upset, abd pain meloxicam Allergy (Intermediate, Verified 03/20/24 11:22) involuntary movements metformin Allergy (Intermediate, Verified 03/20/24 11:22) diarrhea oseltamivir [From TAMIFLU] Allergy (Intermediate, Verified 03/20/24 11:22) NAUSEA & VOMITING tizanidine Allergy (Intermediate, Verified 03/20/24 11:22) involuntary movements ketorolac [From TORADOL] Adverse Reaction (Mild, Verified 03/20/24 11:22) HYPERACTIVE MUSCLE TREMORS HPI Comments Details: Here for scheduled trigger point injection #1. She had right shoulder steroid injection from Orthopedics 03/31/2023 which she said caused stomach issues after. Discussed that this is different from that. Discussed that I am not injecting steroid today. Patient was eager to proceed. [facility] Medical History Myofascial pain Rotator cuff tendonitis Headache Subdural hematoma Insomnia Seizures Lumbar degenerative disc disease Dyslipidemia Essential hypertension Diabetes mellitus Surgical History H/O brain surgery Back pain with history of spinal surgery History of laparoscopic cholecystectomy History of cataract surgery Family History Father Medical history unknown Mother Ovarian cancer Maternal Aunt Breast cancer Sister Ovarian cancer Social History Housing: House Alcohol intake: never Patient Tobacco Use Status: Never used Tobacco e-Cigarette/Vaping Use: Never Used Second Hand Smoke Exposure: No service: No Current occupational status: retired and disabled 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 Conset obtained. Two Trigger points palpated on right upper trapezius. 1 ml of 2% Lidocaine injected in each site, total of 2 mL. Patient tolerated procedure well. Post-injection instructions given. 43086-[id number] Point Injection 1 or 2 sites All charges added?: Procedure code (CPT) selection complete Assessment & Plan Assessment & Plan (1) Myofascial pain: Code(s): M79.18 - Myalgia, other site Category: Medical Plan Tolerated procedure well. Second injection scheduled in 2 weeks. Post- injection instructions given. Assessment and plan discussed with patient, and patient was agreeable. All questions were answered thoroughly. Alisia Hong MD, NATALIYA Board Certified, [place] [employer] and [employer] (ABPMR) Board Certified, [place] [employer] Electrodiagnostic [employer] (ABEM) Orders: Orders Trigger Point Injection Today M79.18 - Myalgia, other site Coding Level of Care Code Procedure Only Diagnoses Myofascial pain M79.18 CPT Codes Therapeutic Injection - Ther Injection 1: 12418-[id number] Point Injection 1 or 2 sites ([id number])
== END 2024-03-20 11:46 | disposition home or self-care (01) ==
PROVIDERS: PCP Internal Medicine; Visit Provider Physical Medicine & Rehabilitation
DX: M79.18 Myalgia, other site (principal); M25.511 Pain in right shoulder
CPT/HCPCS: 20552

== ENCOUNTER → 2024-03-20 10:58 | Outpatient (BNVA) | payer OTHER, SELFPAY | PROVIDERS: PCP Internal Medicine; Visit Provider Physical Medicine & Rehabilitation | DX: M79.18 Myalgia, other site (principal) | CPT/HCPCS: 20552; J3301 ==

== ENCOUNTER 2024-03-27 11:04 | Outpatient (AMB) | payer OTHER, SELFPAY ==
--- NOTE | 2024-03-27 11:09 | MHC.OFFVIS ---
Vital Signs 03/27/24 11:12 Height 4 ft 11 in Weight 133 lb BMI 26.9 Intake Visit Reasons: O/V RT shdr Trig inj #2 Intake Note: Sonam is a 73 year old female who presents today for a right upper trapezius trigger injection #2. Patient states she has noticed improvement since her last injection on 03/20/24. Allergies ibuprofen [IBUPROFEN] Allergy (Intermediate, Verified 03/27/24 11:12) NAUSEA & VOMITING, involuntary movements lisinopril Allergy (Intermediate, Verified 03/27/24 11:12) stomach upset, abd pain meloxicam Allergy (Intermediate, Verified 03/27/24 11:12) involuntary movements metformin Allergy (Intermediate, Verified 03/27/24 11:12) diarrhea oseltamivir [From TAMIFLU] Allergy (Intermediate, Verified 03/27/24 11:12) NAUSEA & VOMITING tizanidine Allergy (Intermediate, Verified 03/27/24 11:12) involuntary movements ketorolac [From TORADOL] Adverse Reaction (Mild, Verified 03/27/24 11:12) HYPERACTIVE MUSCLE TREMORS PFSH Medical History Myofascial pain Rotator cuff tendonitis Headache Subdural hematoma Insomnia Seizures Lumbar degenerative disc disease Dyslipidemia Essential hypertension Diabetes mellitus Surgical History H/O brain surgery Back pain with history of spinal surgery History of laparoscopic cholecystectomy History of cataract surgery Family History Father Medical history unknown Mother Ovarian cancer Maternal Aunt Breast cancer Sister Ovarian cancer Social History Housing: House Alcohol intake: never Patient Tobacco Use Status: Never used Tobacco e-Cigarette/Vaping Use: Never Used Second Hand Smoke Exposure: No service: No Current occupational status: retired and disabled 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 Conset obtained. Trigger points palpated, 2 on right upper trapezius. 1 ml of 2% Lidocaine injected in each site, total of 2 mL. Patient tolerated procedure well. Post-injection instructions given. [id number]-[id number] Point Injection 1 or 2 sites All charges added?: Procedure code (CPT) selection complete Assessment & Plan Assessment & Plan (1) Myofascial pain: Code(s): M79.18 - Myalgia, other site Category: Medical Plan Tolerated procedure well. Assessment and plan discussed with patient, and patient was agreeable. All questions were answered thoroughly. Alisia Hong MD, NATALIYA Board Certified, [place] [employer] and [employer] (ABPMR) Board Certified, [place] [employer] Electro[employer] (ABEM) Orders: Orders Trigger Point Injection Today M79.18 - Myalgia, other site Coding Level of Care Code Procedure Only Diagnoses Myofascial pain M79.18 CPT Codes Therapeutic Injection - Ther Injection 1: 66642-[id number] Point Injection 1 or 2 sites ([id number])
[2024-03-27 11:12] VITALS: BMI 26.9
== END 2024-03-27 11:19 | disposition home or self-care (01) ==
PROVIDERS: PCP Internal Medicine; Visit Provider Physical Medicine & Rehabilitation
DX: M79.18 Myalgia, other site (principal)
CPT/HCPCS: 20552

== ENCOUNTER → 2024-03-27 11:04 | Outpatient (BNVA) | payer OTHER, SELFPAY | PROVIDERS: PCP Internal Medicine; Visit Provider Physical Medicine & Rehabilitation | DX: M79.18 Myalgia, other site (principal) | CPT/HCPCS: 20552 ==

== ENCOUNTER 2024-04-04 11:07 | Outpatient (AMB) | payer OTHER, SELFPAY ==
--- NOTE | 2024-04-04 11:45 | A.OFFVIS_ITS ---
Intake Visit Reasons: O/V RT shdr Trig inj #3 Intake Note: Sonam is a 73 year old female who presents to the office today for RT shoulder Trigger injection #3. Last injection done 03/27/24. Patient express she is finding relief with her injections. Allergies ibuprofen [IBUPROFEN] Allergy (Intermediate, Verified 04/04/24 11:46) NAUSEA & VOMITING, involuntary movements lisinopril Allergy (Intermediate, Verified 04/04/24 11:46) stomach upset, abd pain meloxicam Allergy (Intermediate, Verified 04/04/24 11:46) involuntary movements metformin Allergy (Intermediate, Verified 04/04/24 11:46) diarrhea oseltamivir [From TAMIFLU] Allergy (Intermediate, Verified 04/04/24 11:46) NAUSEA & VOMITING tizanidine Allergy (Intermediate, Verified 04/04/24 11:46) involuntary movements ketorolac [From TORADOL] Adverse Reaction (Mild, Verified 04/04/24 11:46) HYPERACTIVE MUSCLE TREMORS Medication List - Last Reconciled 04/04/24 by Alisia Hong MD amlodipine 10 mg PO DAILY 90 days celecoxib (Celebrex) 200 mg PO BID 30 days cholecalciferol (vitamin D3) 25 mcg PO DAILY 90 days diclofenac sodium 1% 4 grams topical QID PRN 1 month divalproex (Depakote) 125 mg PO BID 90 days lidocaine 5% 1 appl topical BEDTIME PRN 2 weeks lorazepam 0.5 mg PO BEDTIME PRN 20 days losartan 100 mg PO DAILY 90 days meclizine 25 mg PO DAILY PRN 7 days methocarbamol 500 mg PO TID 5 days mirtazapine 15 mg PO BEDTIME 90 days oxycodone-acetaminophen 5-325 mg 1 tab PO Q8H 28 days pioglitazone 45 mg PO DAILY 90 days rosuvastatin 10 mg PO DAILY 90 days HPI Comments Details: Here today with daughter. She mentions that patient had dizziness for a few seconds immediately after the injection last week. I think she had gotten up fast. This went away quickly and had no other complications. She is not afraid of needles. Overall she feels improvement on right neck. PENDING SALE TO [facility] Medical History Myofascial pain Rotator cuff tendonitis Headache Subdural hematoma Insomnia Seizures Lumbar degenerative disc disease Dyslipidemia Essential hypertension Diabetes mellitus Surgical History H/O brain surgery Back pain with history of spinal surgery History of laparoscopic cholecystectomy History of cataract surgery Family History Father Medical history unknown Mother Ovarian cancer Maternal Aunt Breast cancer Sister Ovarian cancer Social History Housing: House Alcohol intake: never Patient Tobacco Use Status: Never used Tobacco e-Cigarette/Vaping Use: Never Used Second Hand Smoke Exposure: No service: No Current occupational status: retired and disabled 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 Conset obtained. Trigger points palpated, 2 on right upper trapezius. 1 ml of 2% Lidocaine injected in each site, total of 2 mL. Patient tolerated procedure well. Post-injection instructions given. [id number] Point Injection 1 or 2 sites All charges added?: Procedure code (CPT) selection complete Assessment & Plan Assessment & Plan (1) Myofascial pain: Code(s): M79.18 - Myalgia, other site Category: Medical Plan Tolerated procedure well. We had her sit for 10 more minutes. No complications. Assessment and plan discussed with patient, and patient was agreeable. All questions were answered thoroughly. Follow up 2 months. Alisia Hong MD, NATALIYA Board Certified, [place] [employer] and [employer] (ABPMR) Board Certified, [place] [employer] Electro[employer] (ABEM) Orders: Orders Trigger Point Injection Today M79.18 - Myalgia, other site Coding Level of Care Code Procedure Only Diagnoses Myofascial pain M79.18 CPT Codes Therapeutic Injection - Ther Injection 1: [id number] Point Injection 1 or 2 sites ([id number])
== END 2024-04-04 11:54 | disposition home or self-care (01) ==
PROVIDERS: PCP Internal Medicine; Visit Provider Physical Medicine & Rehabilitation
DX: M25.511 Pain in right shoulder (principal); M79.18 Myalgia, other site
CPT/HCPCS: 20552

== ENCOUNTER → 2024-04-04 11:07 | Outpatient (BNVA) | payer OTHER, SELFPAY | PROVIDERS: PCP Internal Medicine; Visit Provider Physical Medicine & Rehabilitation | DX: M79.18 Myalgia, other site (principal) | CPT/HCPCS: 20552 ==

== ENCOUNTER 2024-05-11 08:08 | Outpatient (REF) | payer OTHER, SELFPAY ==
[2024-05-11 10:34] LABS: Creatinine Urine 211.17 mg/dL; Microalbum/Creatinine Ratio Ur 6.1 ug/mg cr (<30)
[2024-05-11 10:44] LABS: Alanine Aminotransferase 12 U/L (0-31); Albumin Level 4.1 g/dL (3.5-5.0); Alkaline Phosphatase 120 U/L (39-117); Anion Gap 12 (12-20); Aspartate Amino Transferase 19 U/L (5-31); Bilirubin Total 0.4 mg/dL (0.0-1.0); Blood Urea Nitrogen 15 mg/dL (9-16); Calcium 9.7 mg/dL (8.4-10.2); Carbon Dioxide 24 mmol/L (22-29); Chloride 111 mmol/L (96-108); Cholesterol 164 mg/dL (<200); Estimated Glomerular Filt Rate 56; Glucose Fasting 127 mg/dL (60-99); HDL Cholesterol 50 mg/dL (>40); LDL Cholesterol Calculated 85 mg/dL (<100); Potassium 3.7 mmol/L (3.3-5.1); Sodium 143 mmol/L (135-145); Total Protein 7.7 g/dL (6.5-8.0); Triglycerides 147 mg/dL (<150)
[2024-05-11 10:48] LABS: Vitamin D 25-OH Total 35.5 ng/mL (>30)
== END 2024-05-11 08:09 | disposition home or self-care (01) ==
LOC: HO.LAB 08:08
PROVIDERS: PCP Internal Medicine; Visit Provider Internal Medicine
DX: E55.9 Vitamin D deficiency, unspecified (principal); E11.9 Type 2 diabetes mellitus without complications; E78.5 Hyperlipidemia, unspecified; M54.6 Pain in thoracic spine
CPT/HCPCS: 36415; 80053; 80061; 82043; 82306; 82570

== ENCOUNTER 2024-07-03 14:12 | Outpatient (AMB) | payer OTHER, SELFPAY ==
--- NOTE | 2024-07-03 14:42 | MHC.PC.OV ---
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 Accompanied by: Self / Same As Patient Allergies ibuprofen [IBUPROFEN] Allergy (Intermediate, Verified 07/03/24 15:09) NAUSEA & VOMITING, involuntary movements lisinopril Allergy (Intermediate, Verified 07/03/24 15:09) stomach upset, abd pain meloxicam Allergy (Intermediate, Verified 07/03/24 15:09) involuntary movements metformin Allergy (Intermediate, Verified 07/03/24 15:09) diarrhea oseltamivir [From TAMIFLU] Allergy (Intermediate, Verified 07/03/24 15:09) NAUSEA & VOMITING tizanidine Allergy (Intermediate, Verified 07/03/24 15:09) involuntary movements ketorolac [From TORADOL] Adverse Reaction (Mild, Verified 07/03/24 15:09) HYPERACTIVE MUSCLE TREMORS Medication List - Last Reconciled 07/03/24 by Lena Cheung MD amlodipine 10 mg PO DAILY 90 days celecoxib (Celebrex) 200 mg PO BID 30 days cholecalciferol (vitamin D3) 25 mcg PO DAILY 90 days diclofenac sodium 1% 4 grams topical QID PRN 1 month divalproex (Depakote) 125 mg PO BID 90 days lidocaine 5% 1 appl topical BEDTIME PRN 2 weeks lorazepam 0.5 mg PO BEDTIME PRN 20 days losartan 100 mg PO DAILY 90 days meclizine 25 mg PO DAILY PRN 7 days methocarbamol 500 mg PO TID 5 days mirtazapine 15 mg PO BEDTIME 90 days oxycodone-acetaminophen 5-325 mg 1 tab PO Q8H 28 days pioglitazone 45 mg PO DAILY 90 days rosuvastatin 10 mg PO DAILY 90 days Tobacco use date assessed: 11/09/23 Fall risk assessment: No Falls in past year Last assessed Fall Risk: 07/03/24 Dental Screening Dental Screen Date: 11/09/23 HPI HPI Comments History of Present Illness Details This is a 74-year-old female with diabetes mellitus and seizures that comes for her physical exam. A1c within goal. Has not had a seizure in over a year. Mammogram done 2023. Has not had a colonoscopy but had a fit test as per patient a year ago. No chest pain or shortness on breath. LDL not on goal and dietary changes were advised. DEXA scan will be ordered. [facility] Medical History Myofascial pain Rotator cuff tendonitis Headache Subdural hematoma Insomnia Seizures Lumbar degenerative disc disease Dyslipidemia Essential hypertension Diabetes mellitus Surgical History H/O brain surgery Back pain with history of spinal surgery History of laparoscopic cholecystectomy History of cataract surgery Family History Father Medical history unknown Mother Ovarian cancer Maternal Aunt Breast cancer Sister Ovarian cancer Social History Housing: House Alcohol intake: never Patient Tobacco Use Status: Never used Tobacco e-Cigarette/Vaping Use: Never Used Second Hand Smoke Exposure: No service: No Current occupational status: retired and disabled 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 Dillon Dias, Guera Tristan, Yo Miller and colleagues, with an educational aristides from [employer] (Closed). Review of Systems Const All systems reviewed & are unremarkable except as noted in HPI and below Card Denies chest pain at rest, Denies chest pain with activity, Denies edema, Denies irregular heart rhythm, Denies claudication, Denies dyspnea, Denies dyspnea on exertion, Denies orthopnea, Denies paroxysmal nocturnal dyspnea and Denies slow heart rate Resp Denies cough, Denies dyspnea and Denies dyspnea on exertion GI Denies abdominal pain, Denies change in bowel habits, Denies excessive flatus, Denies nausea and Denies vomiting Denies urinary incontinence, Denies urinary hesitancy and Denies urinary urgency Musc Denies atrophy, Denies deformity and Denies limited range of motion Skin/Breast Denies bleeding lesions, Denies changing lesions and Denies rash Physical exam (Primary Care) Vital Signs: Last Vital Signs BP 144/80 H 07/03/24 14:43 BMI result Body Mass Index 25.9 Tobacco/Smoking Status: Tobacco use Status Tobacco use date assessed 11/09/23 07/03/24 14:44 Patient Tobacco Use Status Never used Tobacco 07/03/24 14:44 e-Cigarette/Vaping Use Never Used 07/03/24 14:44 Thrive Assessment: Date of Thrive Assessment Date Thrive assessed 11/09/23 07/03/24 14:44 Resp Effort & Inspection: normal respiratory effort Auscultation: clear to auscultation bilaterally Cardio Jugular venous distension: no JVD Rate: regular rate Rhythm: regular rhythm Heart sounds: S1 normal heart sound present and S2 normal heart sound present Extrem General: Yes full ROM Office Procedures Flu Questionnaire Does the patient have a severe egg allergy?: No Results AMB Hemoglobin A1c AMB Hemoglobin A1c 7.1 % Last Edit by JANEL Del Rio on 07/03/24 14:48 Immunizations Fluarix Triv [id number] (PF) 45 mcg (15 mcg x 3)/0.5 mL IM syringe Performing Provider: Lena Cheung MD [facility] [facility] [facility] [place] [facility] Documented (not given) by: JANEL Del Rio on 07/03/24 14:47 Reason Not Given: Patient Refused Results Reviewed Results Reviewed: Laboratory Last Values Hgb A1c (Clinic) 7.1 % (4.0-6.0) H 07/03/24 14:45 Coding Level of Care Code Est Pt Prev Care >65y(38627) Diagnoses Physical exam Z00.00 Seizures R56.9 Type 2 diabetes mellitus without complication, without long-term current use of insulin E11.9 Diabetes mellitus type: type 2 Diabetes mellitus filler leaf cutter long insulin use: without filler leaf cutter long use Diabetes mellitus complication status: without complication Time Spent (min) 30 Assessment & Plan Assessment & Plan (1) Physical exam: Code(s): Z00.00 - Encounter for general adult medical examination without abnormal findings Category: Medical Plan: Repeat in a year. (2) Seizures: Code(s): R56.9 - Unspecified convulsions Category: Medical Plan: Continue Depakote. (3) Diabetes mellitus: Code(s): E11.9 - Type 2 diabetes mellitus without complications Category: Medical Qualifiers: Diabetes mellitus type: type 2 Diabetes mellitus filler leaf cutter long insulin use: without correction use Diabetes mellitus complication status: without complication Qualified Code(s): E11.9 - Type 2 diabetes mellitus without complications Plan: Continue Actos. A1c goal is equal or less than 7%. Orders: Orders Influenza [id number] Immunization Today Z23 - Encounter for immunization AMB Hemoglobin A1c Today E11.9 - Type 2 diabetes mellitus without complications Microalbumin, Random (w Creat) 4 Months R80.9 - Proteinuria, unspecified XR DEXA axial skeleton Today Z78.0 - Asymptomatic menopausal state Lipid Panel 4 Months E78.5 - Hyperlipidemia, unspecified Vitamin D 25-OH Total 4 Months E55.9 - Vitamin D deficiency, unspecified Comprehensive [place]. Panel Fast 4 Months Z00.00 - Encounter for general adult medical examination without abnormal findings
[2024-07-03 14:43] VITALS: BP 144/80; BMI 25.9
[2024-07-03 19:25] VITALS: BP 140/80
== END 2024-07-03 15:22 | disposition home or self-care (01) ==
PROVIDERS: PCP Internal Medicine; Visit Provider Internal Medicine
DX: Z00.00 Encounter for general adult medical examination without abnormal findings (principal); R56.9 Unspecified convulsions; E11.9 Type 2 diabetes mellitus without complications; Z23 Encounter for immunization

== ENCOUNTER → 2024-07-03 14:12 | Outpatient (BNVA) | payer OTHER, SELFPAY | PROVIDERS: PCP Internal Medicine; Visit Provider Internal Medicine | DX: E11.9 Type 2 diabetes mellitus without complications (principal); R56.9 Unspecified convulsions | CPT/HCPCS: 83036; 90471; 99397 ==

== ENCOUNTER 2024-07-05 13:03 | Emergency (ER) | payer OTHER, SELFPAY ==
--- NOTE | ~2024-07-05 | XR_ITS ---
EXAMINATION: XR CHEST CLINICAL INFORMATION: Chest pain. COMPARISON: May 30, 2023. TECHNIQUE: PA and lateral views of the chest were obtained. FINDINGS: No significant radiographic change compared with May 30, 2023. No focal infiltrate, effusion, or pneumothorax is seen. The cardiac silhouette is upper normal in size to mildly enlarged. Aorta is mildly atherosclerotic and uncoiled, suggesting hypertension. Mild thoracic dextrocurvature. Status post cholecystectomy. XR/XR chest 2V IMPRESSION: No acute finding. Electronically signed by: Yg Sy MD 07/05/2024 04:50 PM EDT
--- NOTE | 2024-07-05 13:04 | ECG_ITS ---
Test Reason : chest pain Blood Pressure : / mmHG Vent. Rate : 078 BPM Atrial Rate : 078 BPM P-R Int : 150 ms QRS Dur : 078 ms QT Int : 392 ms P-R-T Axes : 044 -13 051 degrees QTc Int : 446 ms Normal sinus rhythm Moderate voltage criteria for LVH, may be normal variant ( R in aVL , [place] product ) Nonspecific ST and T wave abnormality Abnormal ECG When compared to the previous EKG of No significant changes seen Referred By: Antoinette Ortiz Electronically Signed By:NAM MCCLELLAND MD
[2024-07-05 13:13] VITALS: BP 180/78; PULSE 84; RESP 16; TEMP 36.3; O2SAT 97; BMI 25.5
--- NOTE | 2024-07-05 13:14 | ED_ITS ---
HPI - Chest Pain General Chief Complaint: Chest Pain Stated Complaint: Chest pain Time Seen by Provider: 07/05/24 15:57 Source: patient, family, RN notes reviewed and superintendent colliery (Bry) Mode of arrival: ambulatory Limitations: language barrier History of Present Illness HPI narrative: 74-year-old female who has a history of hypertension, diabetes, seizures, presents for evaluation of left-sided chest pain. Patient states she was talking on the phone with her sister at approximately 12:00 p.m. today when she had sudden onset of left-sided chest pain and pressure that radiated to the left shoulder and left arm. Patient states it was constant for approximately 30 minutes and then slowly resolved on its own. Currently the patient is asymptomatic. She does report that she was not feeling well and felt as though that she may pass out. She denies any chest pain at this time. No shortness of breath. No dyspnea on exertion. No orthopnea. She has otherwise been feeling well. She is compliant with her medications. She does report recent travel from [place] approximately a week ago. She does report family history of cardiac disease. No tobacco use. Related Data Previous Rx's ?Medication ?Instructions ?Recorded cholecalciferol (vitamin D3) 25 25 mcg PO DAILY 90 days #90 caps 10/25/21 mcg (1,000 unit) capsule diclofenac sodium 1 % topical gel 4 g topical QID PRN pain (scale 02/15/23 score 4-6) 1 month #100 grams lorazepam 0.5 mg tablet 0.5 mg PO BEDTIME PRN anxiety 20 02/23/23 days #20 tabs meclizine 25 mg tablet 25 mg PO DAILY PRN motion sickness 06/01/23 7 days #7 tabs methocarbamol 500 mg tablet 500 mg PO TID 5 days #15 tabs 09/20/23 lidocaine 5 % topical ointment 1 appl topical BEDTIME PRN pain 2 09/23/23 weeks #30 grams celecoxib 200 mg capsule (Celebrex) 200 mg PO BID 30 days #60 caps 10/25/23 amlodipine 10 mg tablet 10 mg PO DAILY 90 days #90 tabs 05/02/24 pioglitazone 45 mg tablet 45 mg PO DAILY 90 days #90 tabs 05/03/24 divalproex 125 mg tablet,delayed 125 mg PO BID 90 days #180 tabs 05/31/24 release (Depakote) mirtazapine 15 mg tablet 15 mg PO BEDTIME 90 days #90 tabs 05/31/24 losartan 100 mg tablet 100 mg PO DAILY 90 days #90 tabs 06/26/24 rosuvastatin 10 mg tablet 10 mg PO DAILY 90 days #90 tabs 06/26/24 oxycodone-acetaminophen 5 mg-325 1 tab PO Q8H pain 28 days #84 tabs 07/02/24 mg tablet Allergies Allergy/AdvReac Type Severity Reaction Status Date / Time ibuprofen [IBUPROFEN] Allergy Intermediate NAUSEA & Verified 07/05/24 13:17 VOMITING, involuntary movements lisinopril Allergy Intermediate stomach Verified 07/05/24 13:17 upset, abd pain meloxicam Allergy Intermediate involuntary Verified 07/05/24 13:17 movements metformin Allergy Intermediate diarrhea Verified 07/05/24 13:17 oseltamivir [From TAMIFLU] Allergy Intermediate NAUSEA & Verified 07/05/24 13:17 VOMITING tizanidine Allergy Intermediate involuntary Verified 07/05/24 13:17 movements ketorolac [From TORADOL] AdvReac Mild HYPERACTIVE Verified 07/05/24 13:17 MUSCLE TREMORS Review of Systems 2 Constitutional: Constitutional: Denies chills and Denies fever(s) Cardiovascular: Cardiovascular: Denies chest pain (no longer any chest pain), Denies palpitations, Denies dyspnea, Denies dyspnea on exertion and Denies orthopnea Respiratory: Respiratory: Denies cough, Denies dyspnea and Denies dyspnea on exertion Gastrointestinal: Gastrointestinal: Denies abdominal pain, Denies melena, Denies hematochezia, Denies diarrhea, Denies nausea and Denies vomiting Genitourinary: Genitourinary: Denies dysuria and Denies urinary urgency Musculoskeletal: Musculoskeletal: Denies back pain, Denies muscle weakness and Denies numbness Integumentary/Breasts: Skin/Breast: Denies rash Neurologic: Denies focal weakness and Denies numbness Psychiatric: Psychiatric: Denies depression Endocrine: Endocrine: Denies palpitations PMFSH Past Medical History Medical History Myofascial pain Rotator cuff tendonitis Headache Subdural hematoma Insomnia Seizures Lumbar degenerative disc disease Dyslipidemia Essential hypertension Diabetes mellitus Surgical History H/O brain surgery Back pain with history of spinal surgery History of laparoscopic cholecystectomy History of cataract surgery Family History Family History Father Medical history unknown Mother Ovarian cancer Maternal Aunt Breast cancer Sister Ovarian cancer Social History Social History Housing: House Alcohol intake: never Patient Tobacco Use Status: Never used Tobacco Smoked in Last 30 Days: No e-Cigarette/Vaping Use: Never Used Second Hand Smoke Exposure: No Use of substances other than those prescribed or required for medical reasons: No Advance Directives: Yes Advance Directives on File: Yes Advance Directives Date on File: 06/14/21 Do you have a plan to hurt others: No Plan service: No Current occupational status: retired and disabled 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 Cognitive needs: No Hearing needs: No Vision needs: No Physical Exam 2 Vital Signs: Vital Signs: Last Vital Signs Temp 98.2 F 07/05/24 19:38 Pulse 76 07/05/24 19:38 Resp 18 07/05/24 19:38 BP 165/86 H 07/05/24 19:38 Pulse Ox 99 07/05/24 19:38 O2 Del Method Room Air 07/05/24 19:38 BMI result Body Mass Index 25.5 Const: General: healthy appearing and no acute distress Resp: Auscultation: clear to auscultation bilaterally Cardio: Rate: regular rate Rhythm: regular rhythm Extrem: Other: No calf tenderness or pedal edema Course Course Course Narrative: This is an RME performed by Ronaldo Ortiz CNP: Additional HPI, ROS, PE not included below will be deferred to primary provider. Patient is a 74-year-old female with past medical history of diabetes, dyslipidemia, hypertension, lumbar DJD, subdural hematoma, seizure disorder who presents emergency department for evaluation of chest pain. Reports 12:00 sudden onset of left anterior chest pain described as pressure and tightness with dizziness and near passing out sensation, sat down, pain was radiating to the left arm. Plan: Serum labs, ECG Reevaluation(s) Reevaluation #1: 7:30 p.m. patient originally mentioned that she was speaking with her sister and was not having any stressful conversations. She now reports that she was worried about her sister because she lives in [place]. In addition, patient states that she is not actually taking her losartan 100 mg. Patient states it was not making her feel well when she was taking it and has stopped approximately 1 week ago. Patient's blood pressure was elevated while in the emergency department and improved on its own without intervention. I suspect that the patient's blood pressure was elevated and caused the previous symptoms. She has remained asymptomatic while in the emergency department. She has not had any chest pain or shortness of breath. She is not tachycardic. I have also discussed with the patient about the possibility of being brought into the hospital for further evaluation and management however she has declined and feels comfortable with discharge plan home. Patient is agreeable to restarting her losartan. We will trial lower dose of 50 mg. The patient and her agree with this plan. Patient expresses understanding of all discharge instructions and has no further questions at this time. Medical Decision Making Medical Decision Making [facility] Narrative: 74-year-old female with a history of hypertension, diabetes, history of family coronary artery disease, with a 30 minute episode of chest pressure. Resolved on its own and the patient is currently asymptomatic. Chest x-ray is unremarkable. Differential Diagnosis Differential Diagnoses: The differential diagnosis associated with the presentation includes ACS Angina CHF PE Arrhythmia Admission/Observation Consideration of admission/observation: Escalation of care including admission/observation considered Lab Data [facility] Lab Attestation statement: I reviewed the patient's lab results. 07/05/24 13:57 07/05/24 13:57 Labs: Lab Results 07/05/24 07/05/24 Range/Units 13:57 16:45 WBC 10.9 H (4.8-10.8) X10*3/uL RBC 3.89 L (4.20-5.50) X10*6/uL Hgb 12.6 (12.0-16.0) g/dl Hct 37.0 (37.0-47.0) % MCV 95.1 (80.0-98.0) fL MCH 32.4 (27.0-33.0) pg MCHC 34.1 (31.0-35.0) g/dl RDW 14.3 (11.0-16.0) % Plt Count 320 (160-400) X10*3/uL MPV 9.6 (9.4-12.3) fL Immature Gran % (Auto) 0.2 (0.0-0.4) % Neut % (Auto) 55.3 (45-73) % Lymph % (Auto) 36.1 (20-40) % [place] % (Auto) 5.2 (2-11) % Eos % (Auto) 2.6 (0-4) % Baso % (Auto) 0.6 (0-2) % Lymph # (Auto) 3.9 (1.2-4.9) X10*3/uL [place] # (Auto) 0.6 (0.1-1.2) X10*3/uL Eos # (Auto) 0.3 (0.0-0.4) X10*3/uL Baso # (Auto) 0.1 (0.0-0.2) X10*3/uL Abs Immat Gran (auto) 0.02 (0.00-0.03) X10*3/uL Absolute Neuts (auto) 6.0 (2.0-8.3) x10*3/uL Absolute Nucleated RBC 0.000 (0.0-0.012) X10*3/uL Nucleated RBC % (auto) 0.0 (0.0-0.2) /100WBC D-Dimer High Sensitivty < 150 NG/ML Sodium 139 (135-145) mmol/L Potassium 4.2 (3.3-5.1) mmol/L Chloride 106 (96-108) mmol/L Carbon Dioxide 26 (22-29) mmol/L Anion Gap 11 L (12-20) BUN 18 H (9-16) mg/dL Creatinine 0.89 (0.5-1.4) mg/dL Estim Creat Clear Calc 42.1 Estimated GFR > 60 Random Glucose 141 H (60-115) mg/dL Calcium 9.6 (8.4-10.2) mg/dL Total Bilirubin 0.2 (0.0-1.0) mg/dL AST 29 (5-31) U/L ALT 21 (0-31) U/L Alkaline Phosphatase 135 H (39-117) U/L Troponin I High Sens < 2.7 3.5 (<3.5-17.0) ng/L Total Protein 7.8 (6.5-8.0) g/dL Albumin 4.3 (3.5-5.0) g/dL Independent Interpretation I performed an independent interpretation of an: EKG (Sinus at 78 beats per minute without any acute ischemic changes.) Radiology Impression Discussion of test interpretation with radiology: I have reviewed the radiologist's reading. Radiologist Impression: [address] [address] XRay Report Signed Patient: Sonam Delgadillo MR#: [id number] : 1950 Acct:[id number] Age/Sex: 74 / F ADM Date: 07/05/24 Loc: HO.ED Attending Dr: Ordering Physician: Antoinette Ortiz CNP Date of Service: 07/05/24 Procedure(s): XR chest 2V Accession Number(s): [id number] cc: Antoinette Ortiz CNP; Lnea Alan MD~ EXAMINATION: XR CHEST CLINICAL INFORMATION: Chest pain. COMPARISON: May 30, 2023. TECHNIQUE: PA and lateral views of the chest were obtained. FINDINGS: No significant radiographic change compared with May 30, 2023. No focal infiltrate, effusion, or pneumothorax is seen. The cardiac silhouette is upper normal in size to mildly enlarged. Aorta is mildly atherosclerotic and uncoiled, suggesting hypertension. Mild thoracic dextrocurvature. Status post cholecystectomy. XR/XR chest 2V IMPRESSION: No acute finding. Electronically signed by: Yg Sy MD 07/05/2024 04:50 PM EDT Dictated By: Yg Sy Signed By: <Electronically signed by Yg Sy in OV> 07/05/24 1650 DD/ 1317 TD/TT: 07/05/24 1341 [employer]: Chronic Conditions Patient?s care impacted by: Diabetes and Hypertension Discharge Plan Discharge Clinical Impression: Chest pain Qualifiers: Chest pain type: other chest pain Qualified Code(s): R07.89 - Other chest pain Hypertension Qualifiers: Hypertension type: primary hypertension Qualified Code(s): I10 - Essential (primary) hypertension Patient Disposition: Home, Self-Care Instructions: Chest Pain (ED), Chronic Hypertension (ED) Additional Instructions: Restart your losartan in. You may cut it in half so you are taking 50 mg. Continue to monitor your blood pressure. Follow-up with your primary care provider. Call this week to schedule a follow- up appointment. Return to the emergency department if you have any worsening of symptoms, or any concerns. Get well soon! Prescriptions: No Action diclofenac sodium 1 % gel 4 g topical QID PRN (Reason: pain (scale score 4-6)) 30 Days Qty: 100 6RF meclizine 25 mg tablet 25 mg PO DAILY PRN (Reason: motion sickness) 7 Days Qty: 7 0RF methocarbamol 500 mg tablet 500 mg PO TID 5 Days Qty: 15 0RF lidocaine 5 % ointment 1 appl topical BEDTIME PRN (Reason: pain) 14 Days Qty: 30 1RF amlodipine 10 mg tablet 10 mg PO DAILY 90 Days Qty: 90 1RF pioglitazone 45 mg tablet 45 mg PO DAILY 90 Days Qty: 90 0RF divalproex [Depakote] 125 mg tablet,delayed release (DR/EC) 125 mg PO BID 90 Days Qty: 180 1RF mirtazapine 15 mg tablet 15 mg PO BEDTIME 90 Days Qty: 90 1RF losartan 100 mg tablet 100 mg PO DAILY 90 Days Qty: 90 1RF rosuvastatin 10 mg tablet 10 mg PO DAILY 90 Days Qty: 90 1RF oxycodone-acetaminophen 5-325 mg tablet 1 tab PO Q8H 28 Days Qty: 84 0RF cholecalciferol (vitamin D3) 25 mcg (1,000 unit) capsule 25 mcg PO DAILY 90 Days Qty: 90 1RF lorazepam 0.5 mg tablet 0.5 mg PO BEDTIME PRN (Reason: anxiety) 20 Days Qty: 20 0RF celecoxib [Celebrex] 200 mg capsule 200 mg PO BID 30 Days Qty: 60 3RF Print Language: Uzbek
[2024-07-05 14:11] LABS: MANUAL DIFF FLAG NO
[2024-07-05 14:14] LABS: Basophils Absolute Auto 0.1 X10*3/uL (0.0-0.2); Basophils Percent Auto 0.6 % (0-2); Eosinophils Absolute Auto 0.3 X10*3/uL (0.0-0.4); Eosinophils Percent Auto 2.6 % (0-4); Hemoglobin 12.6 g/dl (12.0-16.0); Imm Gran Abs Auto 0.02 X10*3/uL (0.00-0.03); Imm Gran Pct Auto 0.2 % (0.0-0.4); Lymphocytes Absolute Auto 3.9 X10*3/uL (1.2-4.9); Lymphocytes Percent Auto 36.1 % (20-40); Mean Corpuscular HGB Conc 34.1 g/dl (31.0-35.0); Mean Corpuscular Hemoglobin 32.4 pg (27.0-33.0); Mean Corpuscular Volume 95.1 fL (80.0-98.0); Mean Platelet Volume 9.6 fL (9.4-12.3); Monocytes Absolute Auto 0.6 X10*3/uL (0.1-1.2); Monocytes Percent Auto 5.2 % (2-11); Neutrophils Percent Auto 55.3 % (45-73); Platelet Count 320 X10*3/uL (160-400); Red Blood Count 3.89 X10*6/uL (4.20-5.50); Red Cell Distribution Width 14.3 % (11.0-16.0); White Blood Count 10.9 X10*3/uL (4.8-10.8)
[2024-07-05 14:32] LABS: Alanine Aminotransferase 21 U/L (0-31); Albumin Level 4.3 g/dL (3.5-5.0); Alkaline Phosphatase 135 U/L (39-117); Anion Gap 11 (12-20); Aspartate Amino Transferase 29 U/L (5-31); Bilirubin Total 0.2 mg/dL (0.0-1.0); Blood Urea Nitrogen 18 mg/dL (9-16); Calcium 9.6 mg/dL (8.4-10.2); Carbon Dioxide 26 mmol/L (22-29); Chloride 106 mmol/L (96-108); Creatinine Clr Calc Pharmacy 42.1; Estimated Glomerular Filt Rate > 60; Glucose Random 141 mg/dL (60-115); Potassium 4.2 mmol/L (3.3-5.1); Sodium 139 mmol/L (135-145); Total Protein 7.8 g/dL (6.5-8.0)
[2024-07-05 14:51] LABS: Troponin-I High Sensitivity < 2.7 ng/L (<3.5-17.0)
[2024-07-05 16:48] VITALS: BP 181/86; PULSE 73
[2024-07-05 16:50] VITALS: BP 186/106; PULSE 75
[2024-07-05 16:53] VITALS: BP 190/100; PULSE 81
[2024-07-05 17:18] LABS: Troponin-I High Sensitivity 3.5 ng/L (<3.5-17.0)
[2024-07-05 17:33] LABS: D Dimer High Sensitivity < 150 NG/ML
--- NOTE | 2024-07-05 18:45 | PC.NURSE ---
assumed care of this patient at 1845; patient has no complaints of chest pain or shortness of breath. Patient states she is ready to leave and feels much better. Will continue to monitor.
[2024-07-05 19:38] VITALS: BP 165/86; PULSE 76; RESP 18; TEMP 36.8; O2SAT 99
[2024-07-05 20:05] VITALS: BP 165/86; PULSE 76; RESP 18; TEMP 36.8; O2SAT 99
== END 2024-07-05 20:06 | disposition home or self-care (01) ==
PROVIDERS: Nurse Practitioner Family; Physician Assistant; Physician Assistant Medical; Emergency Provider Emergency Medicine; PCP Internal Medicine
DX: R07.89 Other chest pain (principal); I10 Essential (primary) hypertension; E11.9 Type 2 diabetes mellitus without complications; E78.5 Hyperlipidemia, unspecified; Z79.02 Long term (current) use of antithrombotics/antiplatelets; Z79.899 Other long term (current) drug therapy
CPT/HCPCS: 36415; 71046; 80053; 84484; 85025; 85379; 93005; 99285

== ENCOUNTER → 2024-07-05 13:04 | Outpatient (BNV) | payer OTHER, SELFPAY | PROVIDERS: Emergency Provider Emergency Medicine; PCP Internal Medicine; Visit Provider Internal Medicine Cardiovascular Disease | DX: R94.31 Abnormal electrocardiogram [ECG] [EKG] (principal) | CPT/HCPCS: 93010 ==

== ENCOUNTER → 2024-07-26 14:09 | Outpatient (BNVA) | payer OTHER, SELFPAY | PROVIDERS: PCP Internal Medicine ==

== ENCOUNTER 2024-08-01 10:20 | Outpatient (REF) | payer OTHER, SELFPAY ==
--- NOTE | ~2024-08-01 | MM_ITS ---
EXAMINATION: BONE DENSITOMETRY CLINICAL INDICATION: Asymptomatic menopausal state. COMPARISON: Previous BD dated 06/18/2015 and baseline BD dated 02/23/2007. TECHNIQUE: Using a [employer] DXA System (software version: 13.1) manufactured by [employer], dual-energy x-ray absorptiometry was performed of the lumbar spine and left hip. The images are of good technical quality. Summary results are attached. FINDINGS: LEFT FEMUR, NECK: Current: BMD 0.772 g/cm2, Z-score 0.2, T-score -1.9, osteopenia. Prior: BMD 0.816 g/cm2. Baseline: BMD 0.863 g/cm2. LEFT FEMUR, TOTAL: Current: BMD 0.758 g/cm2, Z-score -0.1, T-score -2.0, osteopenia, 3.6% decrease from previous, 8.8% decrease from baseline (<5% change is not significant). Prior: BMD 0.786 g/cm2. Baseline: BMD 0.831 g/cm2. AP SPINE L1-L4 (excluding L3): The data of L1-L4 has been changed to exclude the L3 vertebral body, because significant degenerative change at this level may cause overestimation of lumbar spine density. Current: BMD 1.098 g/cm2, Z-score 1.4, T-score -0.6, normal, 0.8% increase from previous, 0.4% decrease from baseline (<5% change is not significant). Prior: BMD 1.089 g/cm2. Baseline: BMD 1.102 g/cm2. IDENTIFIED RISK FACTORS: Early menopause, secondary osteoporosis, anticonvulsant, osteoporosis. HISTORY OF FRACTURE: None listed. MEDICATIONS: Calcium supplements or multivitamin, vitamin D. MM/XR DEXA axial skeleton IMPRESSION: 1. DIAGNOSIS: Osteopenia based on the lowest T-score value of -2.0 in the total femur applying World Health Organization criteria. 2. 10-YEAR FRACTURE RISK PREDICTION, FRAX: Major osteoporotic fracture (clinical spine, forearm, hip or shoulder) 7.5%. Hip fracture 1.9%. 3. Treatment Recommendations: NOF guidelines recommend consideration for treatment in postmenopausal women and men age 50 and older presenting with the following: -A hip or vertebral (clinical or morphometric) fracture. -T-score less than or equal to -2.5 at the femoral neck or spine after appropriate evaluation to exclude secondary causes. -Low bone mass at the hip or spine and a 10-year fracture probability by FRAX of greater than or equal to 3% for hip fracture or greater than or equal to 20% for major osteoporotic fracture based on the [place] adapted WHO algorithm. 4. Other Recommendations: All treatment decisions require clinical judgment and consideration of individual patient factors, including patient preferences, comorbidities, previous drug use, risk factors not captured in the FRAX model (e.g. frailty, falls, vitamin D deficiency, increased bone turnover, interval significant decline in bone density) and possible under or overestimation of fracture risk by FRAX. Additional medical evaluation for secondary cause of low bone mineral density may be appropriate. FUTURE SCAN RECOMMENDATION: People with diagnosed cases of osteoporosis or at high risk for fracture should have regular bone mineral density tests. For patients eligible for Medicare, routine testing is allowed once every 2 years. The testing frequency can be increased to one year for patients who have rapidly progressing disease, those who are receiving or discontinuing medical therapy to restore bone mass, or have additional risk factors. Electronically signed by: Mariel Schumacher MD 08/01/2024 12:12 PM [facility]
== END 2024-08-01 10:21 | disposition home or self-care (01) ==
LOC: HO.MAMMO 10:20
PROVIDERS: PCP Internal Medicine; Visit Provider Internal Medicine
DX: Z13.820 Encounter for screening for osteoporosis (principal); Z78.0 Asymptomatic menopausal state
CPT/HCPCS: 77080

== ENCOUNTER → 2024-08-09 13:56 | Outpatient (BNVA) | payer OTHER, SELFPAY | PROVIDERS: PCP Internal Medicine ==

== ENCOUNTER 2024-11-14 15:08 | Outpatient (REF) | payer OTHER, SELFPAY | END 2024-11-14 15:09 | disposition home or self-care (01) | LOC: HO.MAMMO 15:08 | PROVIDERS: PCP Internal Medicine; Visit Provider Internal Medicine | DX: Z12.31 Encounter for screening mammogram for malignant neoplasm of breast (principal) | CPT/HCPCS: 77063; 77067 ==

== ENCOUNTER → 2024-11-14 16:00 | Outpatient (BNV) | payer OTHER, SELFPAY | PROVIDERS: PCP Internal Medicine; Visit Provider Internal Medicine | DX: Z12.31 Encounter for screening mammogram for malignant neoplasm of breast (principal) | CPT/HCPCS: 77063; 77067 ==

== ENCOUNTER 2024-12-31 16:42 | Outpatient (AMB) | payer OTHER, SELFPAY ==
--- NOTE | 2024-12-31 16:58 | A.OFFPC_ITS ---
Vital Signs 12/31/24 16:59 Height 4 ft 11 in Weight 125 lb BMI 25.2 BP 148/86 H Blood Pressure Location Lt brachial Position Sitting Intake Visit Reasons: 4M follow up Intake Note: Patient here for 4 month follow up Applied Behavior Science Specialist Required: Yes Applied Behavior Science Specialist Language: Employee Service Officer Name: Lena Cheung MD Information Interpreted: non-clinical & clinical Accompanied by: Self / Same As Patient Allergies ibuprofen [IBUPROFEN] Allergy (Intermediate, Verified 12/31/24 17:13) NAUSEA & VOMITING, involuntary movements lisinopril Allergy (Intermediate, Verified 12/31/24 17:13) stomach upset, abd pain meloxicam Allergy (Intermediate, Verified 12/31/24 17:13) involuntary movements metformin Allergy (Intermediate, Verified 12/31/24 17:13) diarrhea oseltamivir [From TAMIFLU] Allergy (Intermediate, Verified 12/31/24 17:13) NAUSEA & VOMITING tizanidine Allergy (Intermediate, Verified 12/31/24 17:13) involuntary movements ketorolac [From TORADOL] Adverse Reaction (Mild, Verified 12/31/24 17:13) HYPERACTIVE MUSCLE TREMORS Medication List - Last Reconciled 12/31/24 by Lena Cheung MD amlodipine 10 mg PO DAILY 90 days celecoxib (Celebrex) 200 mg PO BID 30 days cholecalciferol (vitamin D3) 25 mcg PO DAILY 90 days diclofenac sodium 1% 4 grams topical QID PRN 1 month divalproex (Depakote) 125 mg PO BID 90 days lidocaine 5% 1 appl topical BEDTIME PRN 2 weeks lorazepam 0.5 mg PO BEDTIME PRN 20 days losartan 100 mg PO DAILY 90 days meclizine 25 mg PO DAILY PRN 7 days methocarbamol 500 mg PO TID 5 days mirtazapine 15 mg PO BEDTIME 90 days oxycodone-acetaminophen 5-325 mg 1 tab PO Q8H 28 days pioglitazone 45 mg PO DAILY 90 days rosuvastatin 10 mg PO DAILY 90 days spironolactone 25 mg PO DAILY 90 days Tobacco use date assessed: 12/31/24 Fall risk assessment: No Falls in past year Last assessed Fall Risk: 12/31/24 Dental Screening Dental Screen Date: 12/31/24 Did you have a dental visit in the last 12 months?: Yes Did you have a dental problem in the last 6 months where you did not have access to dental care?: No Was dental information given to patient?: Patient has dentist HPI HPI Comments History of Present Illness Details The patient is a 74-year-old female presenting with concerns related to her type 2 diabetes mellitus and hypertension. She reports an A1c of 9.7%, which reflects poor diabetes control, above the desired target of 7%. Previous intervention for diabetic retinopathy includes eye injections for hemorrhages. Her hypertension remains inadequately controlled, with elevated blood pressure levels despite using Amlodipine and Losartan. There is no history of acute cardiovascular symptoms during this visit. Coexisting diagnoses include osteopenia, managed with calcium and vitamin D, depression, anxiety, insomnia treated with Mirtazapine, and convulsions for which she uses Depakote. She exhibits a distinct allergy profile with adverse reactions to numerous medications including Ibuprofen, Metformin, and Lisinopril, necessitating caution in pharmacotherapy choices. Headaches are noted to have recurred recently, prompting the need for further investigation. [facility] Medical History (Updated 12/31/24 @ 17:23 by Lena Cheung MD) Myofascial pain Rotator cuff tendonitis Headache Subdural hematoma Insomnia Seizures Lumbar degenerative disc disease Dyslipidemia Essential hypertension Diabetes mellitus Surgical History H/O brain surgery Back pain with history of spinal surgery History of laparoscopic cholecystectomy History of cataract surgery Family History Father Medical history unknown Mother Ovarian cancer Maternal Aunt Breast cancer Sister Ovarian cancer Social History Housing: House Alcohol intake: never Patient Tobacco Use Status: Never used Tobacco e-Cigarette/Vaping Use: Never Used Second Hand Smoke Exposure: No Advance Directives Date on File: 06/14/21 service: No Current occupational status: retired and disabled 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 1. Little interest or pleasure in doing things: not at all 2. Feeling down, depressed, or hopeless: not at all 3. Trouble falling or staying asleep, or sleeping too much: not at all 4. Feeling tired or having little energy: not at all 5. Poor appetite or overeating: not at all 6. Feeling bad about yourself - or that you are a failure or have let yourself or your family down: not at all 7. Trouble concentrating on things, such as reading the newspaper or watching television: not at all 8. Moving or speaking so slowly that other people could have noticed. Or the opposite - being so fidgety or restless that you have been moving around a lot more than usual: not at all 9. Thoughts that you would be better off or of hurting yourself in some way: not at all Total score: 0 Depression Screening Interpretation: Negative Depression Screening Done: Yes 07092 - PHQ-9 Billing: Yes Source: Developed by Drs. Dillon Dias, Guera Tristan, Yo Miller and colleagues, with an educational aristides from [employer]. Thrive Questionnaire Date Thrive assessed: 12/31/24 I am a: Patient What is your living situation today?: I have a steady place to live Within the past 12 months, did the food you bought not last and you didn't have the money to get more?: Never true Within the past 12 months, did you worry whether your food would run out before you got money to buy more?: Never true Do you have trouble paying for medicines?: No Do you have trouble getting transportation to medical appointments?: No Do you have trouble paying your heating and electricity bill?: No Do you have trouble taking care of your child, family member or friend?: No Do you have trouble with day-to-day activities such as bathing, preparing meals, shopping, managing finances, etc.?: No Are you currently unemployed and looking for a job?: No Are you interested in more education?: No Please select the resources that you would like help with: None Currently or been in a relationship where the following occur: No concerns reported THRIVE Score: 0 AUDIT C Alcohol Use Questionnaire (AUDIT-C) 1. How often do you have a drink containing alcohol?: Never Total Score: 0 Score Reviewed/Action Taken: No MARY LOU-7 AMB Questionnaire MARY LOU-7 Date MARY LOU - 7 assessed: 12/31/24 Feeling nervous, anxious, or on edge: 0 = Not at all Not being able to stop or control worryin = Not at all Worrying too much about different things: 0 = Not at all Trouble relaxin = Not at all Being so restless that it is hard to sit still: 0 = Not at all Becoming easily annoyed or irritable: 0 = Not at all Feeling afraid as if something awful might happen: 0 = Not at all Total MARY LOU-7 score (0-4 normal; 5-9 mild; 10-14 moderate; 15-21 severe): 0 Source: Developed by Drs. Dillon Dias, Guera Tristan, Yo Miller and colleagues, with an educational aristides from [employer]. MARY LOU-7 Assessment Billing MARY LOU-7 Assessment Tool: MARY LOU-7 Assessment [id number] Review of Systems Const All systems reviewed & are unremarkable except as noted in HPI and below Card Denies chest pain at rest, Denies chest pain with activity, Denies edema, Denies irregular heart rhythm, Denies claudication, Denies dyspnea, Denies dyspnea on exertion, Denies orthopnea, Denies paroxysmal nocturnal dyspnea and Denies slow heart rate Resp Denies cough, Denies dyspnea and Denies dyspnea on exertion GI Denies abdominal pain, Denies change in bowel habits, Denies excessive flatus, Denies nausea and Denies vomiting Neuro Denies behavioral changes and Denies lack of coordination Psych Denies behavioral changes Physical exam (Primary Care) Vital Signs: Last Vital Signs BP 148/86 H 12/31/24 16:59 BMI result Body Mass Index 25.2 Tobacco/Smoking Status: Tobacco use Status Tobacco use date assessed 12/31/24 12/31/24 17:06 Patient Tobacco Use Status Never used Tobacco 12/31/24 17:01 e-Cigarette/Vaping Use Never Used 12/31/24 17:01 PHQ-9: PHQ-9 Score PHQ-9: Total score 0 12/31/24 17:16 Depression Screening Interpretation: Negative Thrive Assessment: Date of Thrive Assessment Date Thrive assessed 12/31/24 12/31/24 17:01 Currently or been in a relationship where the following occur: No concerns reported Resp Effort & Inspection: normal respiratory effort Auscultation: clear to auscultation bilaterally Cardio Jugular venous distension: no JVD Rate: regular rate Rhythm: regular rhythm Heart sounds: S1 normal heart sound present and S2 normal heart sound present Extrem General: Yes full ROM Results AMB Hemoglobin A1c AMB Hemoglobin A1c 9.7 % Last Edit by JANEL Del Rio on 12/31/24 17:1 1 Results Reviewed Results Reviewed: Laboratory Last Values Hgb A1c (Clinic) 9.7 % (4.0-6.0) H 12/31/24 16:57 Coding Level of Care Code Est Pt Level 4 (84604) Complex EM visit Add On G2211 Diagnoses Persistent headaches R51.9 Hyperlipidemia LDL goal <70 E78.5 Type 2 diabetes mellitus without complication, without long-term current use of insulin E11.9 Diabetes mellitus type: type 2 Diabetes mellitus [facility] insulin use: without [facility] use Diabetes mellitus complication status: without complication Essential hypertension I10 Seizures R56.9 Additional Codes MARY LOU-7 Assessment Billing - MARY LOU-7 Assessment Tool: MARY LOU-7 Assessment 50905 ([id number]) PHQ-9 - 71926 - PHQ-9 Billing: Yes ([id number]) Time Spent (min) 23 Assessment & Plan Assessment & Plan (1) Persistent headaches: Code(s): R51.9 - Headache, unspecified Category: Medical (2) Hyperlipidemia LDL goal <70: Code(s): E78.5 - Hyperlipidemia, unspecified Category: Medical (3) Diabetes mellitus: Code(s): E11.9 - Type 2 diabetes mellitus without complications Category: Medical Qualifiers: Diabetes mellitus type: type 2 Diabetes mellitus [facility] insulin use: without [facility] use Diabetes mellitus complication status: without complication Qualified Code(s): E11.9 - Type 2 diabetes mellitus without complications (4) Essential hypertension: Code(s): I10 - Essential (primary) hypertension Category: Medical (5) Seizures: Code(s): R56.9 - Unspecified convulsions Category: Medical Plan To optimize diabetes control, explore adding an additional oral medication or possibly insulin after assessing patient tolerance and adherence to current regimens. Anticipate adjusting antihypertensive therapy to achieve targeted blood pressure levels and minimize cardiovascular risks. Further explore headaches through advanced imaging to exclude possible neurological issues. Continue management of osteopenia with calcium and vitamin D supplements. Reinforce Mirtazapine regimen and discuss additional mental health support options. Review allergies before prescribing new medications to prevent adverse drug reactions. Patient was informed and verbally consented to the use of an ambient scribe for clinic note documentation during this visit. During the visit, we discussed the poor control of the patient's diabetes and elevated blood pressure, analyzing management options, risks, and benefits of introducing another glucose-lowering medication. Patient education on lifestyle adjustments and glycemic monitoring was reviewed. We also covered potential adjustments to antihypertensive therapy given current blood pressure status. Consent was obtained for proactive monitoring and exploring potential additional medication post-consultation. Discussions about obtaining a repeat head imaging study due to recent headaches were agreed upon with patient understanding. The risks and benefits regarding ongoing mental health treatment were also discussed, emphasizing compliance without adverse reactions. The patient expressed concerns over insurance communication issues impacting care, which were acknowledged with a plan to address accessibility and communication in subsequent appointments. Orders: Orders AMB Hemoglobin A1c Today E11.9 - Type 2 diabetes mellitus without complications MR head/brain wo con Today R51.9 - Headache, unspecified Lipid Panel 6 Months E78.5 - Hyperlipidemia, unspecified Comprehensive [place]. Panel Fast 6 Months E11.9 - Type 2 diabetes mellitus without complications Microalbumin, Random (w Creat) 6 Months R80.9 - Proteinuria, unspecified Vitamin D 25-OH Total 6 Months E55.9 - Vitamin D deficiency, unspecified Medications: New sitagliptin phosphate (Januvia) 25 mg PO DAILY 90 tabs 1RF 90 days Patient Instructions: - Take all prescribed medications as directed, especially for blood pressure and diabetes. - Monitor blood sugar levels regularly. - Attend all scheduled follow-up appointments. - Continue taking calcium and vitamin D supplements as instructed. - Reach out immediately for symptoms of headache or changes in vision. - Report any adverse reactions to any medications immediately. - Attempt to resolve communication issues with insurance provider.
[2024-12-31 16:59] VITALS: BP 148/86; BMI 25.2
== END 2024-12-31 17:29 | disposition home or self-care (01) ==
LOC: HO.HMCH 16:42
PROVIDERS: PCP Internal Medicine; Visit Provider Internal Medicine
DX: E11.69 Type 2 diabetes mellitus with other specified complication (principal); R56.9 Unspecified convulsions; R51.9 Headache, unspecified; E78.5 Hyperlipidemia, unspecified; I10 Essential (primary) hypertension

== ENCOUNTER → 2024-12-31 16:42 | Outpatient (BNVA) | payer OTHER, SELFPAY | PROVIDERS: PCP Internal Medicine; Visit Provider Internal Medicine | DX: I10 Essential (primary) hypertension (principal); E11.9 Type 2 diabetes mellitus without complications; R51.9 Headache, unspecified; E78.5 Hyperlipidemia, unspecified; R56.9 Unspecified convulsions; R80.9 Proteinuria, unspecified; E55.9 Vitamin D deficiency, unspecified | CPT/HCPCS: 83036; 96127; 99212 ==

== ENCOUNTER 2025-01-18 13:59 | Outpatient (REF) | payer OTHER, SELFPAY | END 2025-01-18 14:00 | disposition home or self-care (01) | LOC: HO.MRI 13:59 | PROVIDERS: PCP Internal Medicine; Visit Provider Internal Medicine | DX: R51.9 Headache, unspecified (principal) | CPT/HCPCS: 70551 ==

== ENCOUNTER → 2025-01-18 14:12 | Outpatient (BNV) | payer OTHER, SELFPAY | PROVIDERS: PCP Internal Medicine; Visit Provider Radiology Diagnostic Radiology | DX: G31.9 Degenerative disease of nervous system, unspecified (principal) | CPT/HCPCS: 70551 ==

== ENCOUNTER 2025-05-15 16:03 | Outpatient (AMB) | payer OTHER, SELFPAY ==
--- NOTE | 2025-05-15 16:17 | MHC.PC.OV ---
Vital Signs 05/15/25 16:20 Height 4 ft 11 in Weight 120 lb BMI 24.2 BP 160/90 H Blood Pressure Location Lt brachial Position Sitting Pulse 88 Pulse Oximetry (%) 98 Oxygen Delivery Method Room Air Intake Visit Reasons: 4 month f/u Process Coach Required: No Accompanied by: Self / Same As Patient Allergies ibuprofen (IBUPROFEN) Allergy (Intermediate, Verified 05/15/25 16:50) NAUSEA & VOMITING, involuntary movements lisinopril Allergy (Intermediate, Verified 05/15/25 16:50) stomach upset, abd pain meloxicam Allergy (Intermediate, Verified 05/15/25 16:50) involuntary movements metformin Allergy (Intermediate, Verified 05/15/25 16:50) diarrhea oseltamivir (From TAMIFLU) Allergy (Intermediate, Verified 05/15/25 16:50) NAUSEA & VOMITING tizanidine Allergy (Intermediate, Verified 05/15/25 16:50) involuntary movements ketorolac (From TORADOL) Adverse Reaction (Mild, Verified 05/15/25 16:50) HYPERACTIVE MUSCLE TREMORS Medication List - Last Reconciled 05/15/25 by Lena Cheung MD amlodipine 10 mg PO DAILY 90 days celecoxib (Celebrex) 200 mg PO BID 30 days cholecalciferol (vitamin D3) 25 mcg PO DAILY 90 days diclofenac sodium 1% 4 grams topical QID PRN 1 month divalproex (Depakote) 125 mg PO BID 90 days lidocaine 5% 1 appl topical BEDTIME PRN 2 weeks lorazepam 0.5 mg PO BEDTIME PRN 20 days losartan 100 mg PO DAILY 90 days meclizine 25 mg PO DAILY PRN 7 days methocarbamol 500 mg PO TID 5 days mirtazapine 15 mg PO BEDTIME 90 days oxycodone-acetaminophen 5-325 mg 1 tab PO Q8H 28 days pioglitazone 45 mg PO DAILY 90 days rosuvastatin 10 mg PO DAILY 90 days sitagliptin phosphate (Januvia) 25 mg PO DAILY 90 days spironolactone 25 mg PO DAILY 90 days Tobacco use date assessed: 05/15/25 Fall risk assessment: No Falls in past year Last assessed Fall Risk: 05/15/25 Dental Screening Dental Screen Date: 05/15/25 Did you have a dental visit in the last 12 months?: No Did you have a dental problem in the last 6 months where you did not have access to dental care?: No Was dental information given to patient?: No HPI HPI Comments History of Present Illness Details The patient is a 74-year-old female presenting for a routine check-up and management of chronic conditions. She has diabetes mellitus type 2 and her A1c is 7.7% today but she admits not being compliant with Januvia and I asked her to restarted. She also has hypertension and her blood pressure is elevated today and she did took her medications today but had a stressful situation before coming to the appointment which she associates her elevated blood pressure with it. On statins for hyperlipidemia and lipid panel will be ordered. 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 Reports no seizures for over a year. The patient has a history of global brain atrophy, which was noted during the visit. There is no mention of any acute neurological symptoms or masses associated with this condition. The patient also has osteopenia, as indicated by a bone density scan conducted in July. The next bone density scan is scheduled for 2025, and there are no acute findings or hemorrhages noted. Preventative care measures include a mammography completed this year, with no acute findings reported. [facility] Medical History Myofascial pain Rotator cuff tendonitis Headache Subdural hematoma Insomnia Seizures Lumbar degenerative disc disease Dyslipidemia Essential hypertension Diabetes mellitus Surgical History H/O brain surgery Back pain with history of spinal surgery History of laparoscopic cholecystectomy History of cataract surgery Family History Father Medical history unknown Mother Ovarian cancer Maternal Aunt Breast cancer Sister Ovarian cancer Social History Housing: House Alcohol intake: never Patient Tobacco Use Status: Never used Tobacco e-Cigarette/Vaping Use: Never Used Second Hand Smoke Exposure: No Advance Directives Date on File: 06/14/21 service: No Current occupational status: retired and disabled 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 1. Little interest or pleasure in doing things: not at all 2. Feeling down, depressed, or hopeless: not at all 3. Trouble falling or staying asleep, or sleeping too much: not at all 4. Feeling tired or having little energy: not at all 5. Poor appetite or overeating: not at all 6. Feeling bad about yourself - or that you are a failure or have let yourself or your family down: not at all 7. Trouble concentrating on things, such as reading the newspaper or watching television: not at all 8. Moving or speaking so slowly that other people could have noticed. Or the opposite - being so fidgety or restless that you have been moving around a lot more than usual: not at all 9. Thoughts that you would be better off or of hurting yourself in some way: not at all Total score: 0 Depression Screening Interpretation: Negative Depression Screening Done: Yes 80965 - PHQ-9 Billing: Yes Source: Developed by Drs. Dillon Dias, Guera Tristan, Yo Miller and colleagues, with an educational aristides from [employer]. Thrive Questionnaire Date Thrive assessed: 05/15/25 I am a: Patient What is your living situation today?: I have a steady place to live Within the past 12 months, did the food you bought not last and you didn't have the money to get more?: Never true Within the past 12 months, did you worry whether your food would run out before you got money to buy more?: Never true Do you have trouble paying for medicines?: No Do you have trouble getting transportation to medical appointments?: No Do you have trouble paying your heating and electricity bill?: No Do you have trouble taking care of your child, family member or friend?: No Do you have trouble with day-to-day activities such as bathing, preparing meals, shopping, managing finances, etc.?: No Are you currently unemployed and looking for a job?: No Are you interested in more education?: No Please select the resources that you would like help with: None Currently or been in a relationship where the following occur: No concerns reported THRIVE Score: 0 MARY LOU-7 AMB Questionnaire MARY LOU-7 Date MARY LOU - 7 assessed: 05/15/25 Source: Developed by Drs. Dillon Dias, Guera Tristan, Yo Miller and colleagues, with an educational aristides from [employer]. Review of Systems Const All systems reviewed & are unremarkable except as noted in HPI and below Card Denies chest pain at rest, Denies chest pain with activity, Denies edema, Denies irregular heart rhythm, Denies claudication, Denies dyspnea, Denies dyspnea on exertion, Denies orthopnea, Denies paroxysmal nocturnal dyspnea and Denies slow heart rate Resp Denies cough, Denies dyspnea and Denies dyspnea on exertion GI Denies abdominal pain, Denies change in bowel habits, Denies excessive flatus, Denies nausea and Denies vomiting Denies urinary incontinence, Denies urinary hesitancy and Denies urinary urgency Musc Denies atrophy, Denies deformity and Denies limited range of motion Physical exam (Primary Care) Vital Signs: Last Vital Signs Pulse 88 05/15/25 16:20 BP 160/90 H 05/15/25 16:20 Pulse Ox 98 05/15/25 16:20 Oxygen Delivery Method Room Air 05/15/25 16:20 BMI result Body Mass Index 24.2 Tobacco/Smoking Status: Tobacco use Status Tobacco use date assessed 05/15/25 05/15/25 16:25 Patient Tobacco Use Status Never used Tobacco 05/15/25 16:25 e-Cigarette/Vaping Use Never Used 05/15/25 16:25 PHQ-9: PHQ-9 Score PHQ-9: Total score 0 05/15/25 17:10 Depression Screening Interpretation: Negative Thrive Assessment: Date of Thrive Assessment Date Thrive assessed 05/15/25 05/15/25 16:25 Currently or been in a relationship where the following occur: No concerns reported Resp Effort & Inspection: normal respiratory effort Auscultation: clear to auscultation bilaterally Cardio Jugular venous distension: no JVD Rate: regular rate Rhythm: regular rhythm Heart sounds: S1 normal heart sound present and S2 normal heart sound present Extrem General: Yes full ROM Results AMB Hemoglobin A1c AMB Hemoglobin A1c 7.7 % Last Edit by Massiel Siegel MA on 05/15/25 17:09 Results Reviewed Results Reviewed: Laboratory Last Values Hgb A1c (Clinic) 7.7 % (4.0-6.0) H 05/15/25 16:57 Coding Level of Care Code Est Pt Level 4 (27361) Complex EM visit Add On G2211 Diagnoses Type 2 diabetes mellitus without complication, without long-term current use of insulin E11.9 Diabetes mellitus type: type 2 Diabetes mellitus intermediate insulin use: without intermediate use Diabetes mellitus complication status: without complication Essential hypertension I10 Hyperlipidemia LDL goal <70 E78.5 Seizures R56.9 Additional Codes PHQ-9 - 08453 - PHQ-9 Billing: Yes ([id number]) Time Spent (min) 22 Assessment & Plan Assessment & Plan (1) Diabetes mellitus: Code(s): E11.9 - Type 2 diabetes mellitus without complications Category: Medical Qualifiers: Diabetes mellitus type: type 2 Diabetes mellitus intermodal dispatcher insulin use: without intermediate use Diabetes mellitus complication status: without complication Qualified Code(s): E11.9 - Type 2 diabetes mellitus without complications (2) Essential hypertension: Code(s): I10 - Essential (primary) hypertension Category: Medical (3) Hyperlipidemia LDL goal <70: Code(s): E78.5 - Hyperlipidemia, unspecified Category: Medical (4) Seizures: Code(s): R56.9 - Unspecified convulsions Category: Medical Plan The patient will continue with her current medication regimen, including Depakote, lorazepam, metocarbamol, mirtazapine, Percocet, pioglitazone, and rosuvastatin. A follow-up bone density scan is scheduled for 2025 to monitor osteopenia. Preventative care measures such as mammography have been completed this year, and no acute issues were noted. She will restart Januvia for an A1c within goal less than 7%. Patient was informed and verbally consented to the use of an ambient scribe for clinic note documentation during this visit. Orders: Orders AMB Hemoglobin A1c 05/15/25 Z13.9 - Encounter for screening, unspecified Vitamin D 25-OH Total 05/15/25 E55.9 - Vitamin D deficiency, unspecified Lipid Panel 05/15/25 E78.5 - Hyperlipidemia, unspecified Microalbumin, Random (w Creat) 05/15/25 R80.9 - Proteinuria, unspecified Comprehensive [place]. Panel Fast 05/15/25 E11.9 - Type 2 diabetes mellitus without complications
[2025-05-15 16:20] VITALS: BP 160/90; PULSE 88; O2SAT 98; BMI 24.2
== END 2025-05-15 17:07 | disposition home or self-care (01) ==
LOC: HO.HMCH 16:03
PROVIDERS: PCP Internal Medicine; Visit Provider Internal Medicine
DX: Z13.9 Encounter for screening, unspecified (principal)

== ENCOUNTER → 2025-05-15 16:03 | Outpatient (BNVA) | payer OTHER, SELFPAY | PROVIDERS: PCP Internal Medicine; Visit Provider Internal Medicine | DX: E11.9 Type 2 diabetes mellitus without complications (principal); E78.5 Hyperlipidemia, unspecified; I10 Essential (primary) hypertension; R56.9 Unspecified convulsions; Z79.899 Other long term (current) drug therapy | CPT/HCPCS: 83036; 96127; 99212 ==

== ENCOUNTER 2025-07-05 07:17 | Outpatient (REF) | payer OTHER, SELFPAY ==
[2025-07-05 09:28] LABS: Alanine Aminotransferase 18 U/L (0-31); Albumin Level 4.3 g/dL (3.5-5.0); Alkaline Phosphatase 125 U/L (39-117); Anion Gap 12 (12-20); Aspartate Amino Transferase 26 U/L (5-31); Blood Urea Nitrogen 18 mg/dL (9-16); Calcium 9.5 mg/dL (8.4-10.2); Carbon Dioxide 27 mmol/L (22-29); Chloride 105 mmol/L (96-108); Cholesterol 173 mg/dL (<200); Estimated Glomerular Filt Rate > 60; HDL Cholesterol 48 mg/dL (>40); Potassium 3.7 mmol/L (3.3-5.1); Sodium 140 mmol/L (135-145); Total Protein 7.5 g/dL (6.5-8.0); Triglycerides 122 mg/dL (<150)
[2025-07-05 09:45] LABS: Microalbum/Creatinine Ratio Ur 38.7 ug/mg cr (<30)
== END 2025-07-05 07:18 | disposition home or self-care (01) ==
LOC: HO.LAB 07:17
PROVIDERS: PCP Internal Medicine; Visit Provider Internal Medicine
DX: E11.9 Type 2 diabetes mellitus without complications (principal); E78.5 Hyperlipidemia, unspecified; R80.9 Proteinuria, unspecified; E55.9 Vitamin D deficiency, unspecified
CPT/HCPCS: 36415; 80053; 80061; 82043; 82306; 82570

== ENCOUNTER 2025-07-09 13:58 | Outpatient (AMB) | payer OTHER, SELFPAY ==
--- NOTE | 2025-07-09 14:03 | A.OFFPC_ITS ---
Vital Signs 07/09/25 14:04 Height 4 ft 11 in Weight 120 lb 4 oz BMI 24.3 BP 120/62 Blood Pressure Location Lt brachial Position Sitting Pulse 76 Pulse Source Pulse Oximeter Temp 97.3 F Temp Source Temporal Artery Scan Pulse Oximetry (%) 98 Oxygen Delivery Method Room Air Intake Visit Reasons: Annual Physical Intake Note: Patient is here today for a physical. 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: Not Required per policy Accompanied by: Self / Same As Patient Allergies ibuprofen (IBUPROFEN) Allergy (Intermediate, Verified 07/09/25 14:03) NAUSEA & VOMITING, involuntary movements lisinopril Allergy (Intermediate, Verified 07/09/25 14:03) stomach upset, abd pain meloxicam Allergy (Intermediate, Verified 07/09/25 14:03) involuntary movements metformin Allergy (Intermediate, Verified 07/09/25 14:03) diarrhea oseltamivir (From TAMIFLU) Allergy (Intermediate, Verified 07/09/25 14:03) NAUSEA & VOMITING tizanidine Allergy (Intermediate, Verified 07/09/25 14:03) involuntary movements ketorolac (From TORADOL) Adverse Reaction (Mild, Verified 07/09/25 14:03) HYPERACTIVE MUSCLE TREMORS Medication List - Last Reconciled 07/09/25 by Godfrey Mancilla MD amlodipine 10 mg PO DAILY 90 days cholecalciferol (vitamin D3) 25 mcg PO DAILY 90 days divalproex (Depakote) 125 mg PO BID 90 days losartan 100 mg PO DAILY 90 days mirtazapine 15 mg PO BEDTIME 90 days oxycodone-acetaminophen 5-325 mg 1 tab PO Q8H 28 days pioglitazone 45 mg PO DAILY 90 days rosuvastatin 10 mg PO DAILY 90 days spironolactone 25 mg PO DAILY 90 days Tobacco use date assessed: 07/09/25 Fall risk assessment: No Falls in past year Last assessed Fall Risk: 07/09/25 Dental Screening Dental Screen Date: 05/15/25 HPI HPI Comments History of Present Illness Details The patient is a 75-year-old female presenting for an annual physical exam. The patient has a history of hypertension, for which she is currently taking amlodipine. She reports no issues with her current medications and has been compliant with her treatment regimen. She mentioned having had shingles in the past and discussed the potential benefits of receiving the shingles vaccine despite her previous infection. The patient also reported experiencing dizziness, for which she was previously taking meclizine, but she has since discontinued its use. [facility] Medical History Myofascial pain Rotator cuff tendonitis Headache Subdural hematoma Insomnia Seizures Lumbar degenerative disc disease Dyslipidemia Essential hypertension Diabetes mellitus Surgical History H/O brain surgery Back pain with history of spinal surgery History of laparoscopic cholecystectomy History of cataract surgery Family History Father Medical history unknown Mother Ovarian cancer Maternal Aunt Breast cancer Sister Ovarian cancer Social History Housing: House Alcohol intake: never Patient Tobacco Use Status: Never used Tobacco e-Cigarette/Vaping Use: Never Used Second Hand Smoke Exposure: No Advance Directives Date on File: 06/14/21 service: No Current occupational status: retired and disabled 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 Dillon Dias, Guera Tristan, Yo Miller and colleagues, with an educational aristides from [employer]. Review of Systems Const Details: Positives besides what was mentioned in HPI are in BOLD Constitutional: No Weight Change, No Fever, No Chills, No Night Sweats, No Fatigue, No Malaise ENT/Mouth: No Hearing Changes, No Ear Pain, No Nasal Congestion, No Sinus Pain, No Hoarseness, No sore throat, No Rhinorrhea, No Swallowing Difficulty Eyes: No Eye Pain, No Swelling, No Redness, No Foreign Body, No Discharge, No Vision Changes Cardiovascular: No Chest Pain, No SOB, No PND, No Dyspnea on Exertion, No Orthopnea, No Claudication, No Edema, No Palpitations Respiratory: No Cough, No Sputum, No Wheezing, No Smoke Exposure, No Dyspnea Gastrointestinal: No Nausea, No Vomiting, No Diarrhea, No Constipation, No Pain, No Heartburn, No Anorexia, No Dysphagia, No Hematochezia, No Melena, No Flatulence, No Jaundice Genitourinary: No Dysmenorrhea, No DUB, No Dyspareunia, No Dysuria, No Urinary Frequency, No Hematuria, No Urinary Incontinence, No Urgency, No Flank Pain, No Urinary Flow Changes, No Hesitancy Musculoskeletal: No Arthralgias, No Myalgias, No Joint Swelling, No Joint Stiffness, No Back Pain, No Neck Pain, No Injury History Skin: No Skin Lesions, No Pruritis, No Hair Changes, No Breast/Skin Changes, No Nipple Discharge Neuro: No Weakness, No Numbness, No Paresthesias, No Loss of Consciousness, No Syncope, No Dizziness, No Headache, No Coordination Changes, No Recent Falls Psych: No Anxiety/Panic, No Depression, No Insomnia, No Personality Changes, No Delusions, No Rumination, No SI/HI/AH/VH, No Social Issues, No Memory Changes, No Violence/Abuse Hx., No Eating Concerns Heme/Lymph: No Bruising, No Bleeding, No Transfusions History, No Lymphade nopathy Endocrine: No Polyuria, No Polydipsia, No Temperature Intolerance Physical exam (Primary Care) Vital Signs: Last Vital Signs Temp 97.3 F 07/09/25 14:04 Pulse 76 07/09/25 14:04 BP 120/62 07/09/25 14:04 Pulse Ox 98 07/09/25 14:04 Oxygen Delivery Method Room Air 07/09/25 14:04 BMI result Body Mass Index 24.3 Tobacco/Smoking Status: Tobacco use Status Tobacco use date assessed 07/09/25 07/09/25 14:08 Patient Tobacco Use Status Never used Tobacco 07/09/25 14:08 e-Cigarette/Vaping Use Never Used 07/09/25 14:08 Thrive Assessment: Date of Thrive Assessment Date Thrive assessed 05/15/25 07/09/25 14:08 Const Other: Pertinent findings are in BOLD GENERAL APPEARANCE NAD, activity normal for age, well developed/ well nourished, no cyanosis, pallor, or diaphoresis. EYES lids/conjunctiva normal. EARS/NOSE/THROAT Mucous membranes moist, nares normal, lips/teeth normal uvula midline without oral pharyngeal erythema, exudate or swelling TMs normal bilaterally. No lymphangitis/lymphedema. HEAD/NECK normocephalic atraumatic, no facial trauma, neck is supple. RESPIRATORY respiratory effort normal, speaks in full sentences, no tripod position, no accessory muscle use. Lungs clear to auscultation without rhonchi, wheezes, rales CARDIAC Regular rate and rhythm, no edema. ABDOMINAL Soft, ND/NT. No evidence of fluid wave. No pulsatile masses on exam, rebound tenderness, Agosto sign or pain over Mcburney's point. MUSCLES/EXTREMITIES No abnormal range of motion, no swelling. SKIN Warm, pink and dry. No rashes, dermatoses, petechiae or lesions. NEUROLOGICAL Speech is clear and appropriate. Normal level of consciousness. Gait and coordination are normal. 5/5 strength in all extremities. PSYCH Normal mood and affect. Judgement/competence is appropriate Coding Level of Care Code Est Pt Prev Care >65y(96083) Diagnoses Healthcare maintenance Z00.00 History of dental problems Z87.19 Time Spent (min) 30 Assessment & Plan Assessment & Plan (1) Healthcare maintenance: Code(s): Z00.00 - Encounter for general adult medical examination without abnormal findings Category: Medical Plan: CBC, CMP, Lipid panel, A1C, TSH w T4, vit D. Ordered today. Shingles 2 doses when >50 yo. Declined as she had shingles in the past. COVID: two doses. Declined. Tdap: Due 2025. Pneumococcal: 19-64. Aged out. Flu vaccine: Declined. Colonoscopy: 45-75. Aged out. AAA: 65 -75. NI[address] CT lun - 80. NI. HPV: Aged out. HIV: NI. HBV: NI. HCV: NI. Dexa: Due for repeat in 2025. Mammogram: Aged out. (2) History of dental problems: Code(s): Z87.19 - Personal history of other diseases of the digestive system Category: Medical Plan: Patient is due for dental extraciton. She needs pre-op clearnace. I explained to the patient the need to have her blood work done prior to her dental procedure for clearance. Orders: Orders Complete Blood Count no Diff Today Z87.19 - Personal history of other diseases of the digestive system Referrals Dentistry Referral Z87.19 - Personal history of other diseases of the digestive system
[2025-07-09 14:04] VITALS: BP 120/62; PULSE 76; TEMP 36.3; O2SAT 98; BMI 24.3
== END 2025-07-09 15:42 | disposition home or self-care (01) ==
LOC: HO.HMCH 13:58
PROVIDERS: PCP Internal Medicine; Visit Provider Internal Medicine
DX: Z00.00 Encounter for general adult medical examination without abnormal findings (principal); Z87.19 Personal history of other diseases of the digestive system

== ENCOUNTER → 2025-07-09 13:58 | Outpatient (BNVA) | payer OTHER, SELFPAY | PROVIDERS: PCP Internal Medicine; Visit Provider Internal Medicine | DX: Z00.00 Encounter for general adult medical examination without abnormal findings (principal); I10 Essential (primary) hypertension; Z87.19 Personal history of other diseases of the digestive system | CPT/HCPCS: 99397 ==

== ENCOUNTER 2025-09-22 16:03 | Outpatient (AMB) | payer OTHER, SELFPAY ==
--- NOTE | 2025-09-22 16:08 | MHC.PC.OV ---
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 Accompanied by: Self / Same As Patient Allergies ibuprofen (IBUPROFEN) Allergy (Intermediate, Verified 09/22/25 16:33) NAUSEA & VOMITING, involuntary movements lisinopril Allergy (Intermediate, Verified 09/22/25 16:33) stomach upset, abd pain meloxicam Allergy (Intermediate, Verified 09/22/25 16:33) involuntary movements metformin Allergy (Intermediate, Verified 09/22/25 16:33) diarrhea oseltamivir (From TAMIFLU) Allergy (Intermediate, Verified 09/22/25 16:33) NAUSEA & VOMITING tizanidine Allergy (Intermediate, Verified 09/22/25 16:33) involuntary movements ketorolac (From TORADOL) Adverse Reaction (Mild, Verified 09/22/25 16:33) HYPERACTIVE MUSCLE TREMORS Medication List - Last Reconciled 09/22/25 by Lena Cheung MD amlodipine 10 mg PO DAILY 90 days cholecalciferol (vitamin D3) 25 mcg PO DAILY 90 days divalproex (Depakote) 125 mg PO BID 90 days losartan 100 mg PO DAILY 90 days mirtazapine 15 mg PO BEDTIME 90 days oxycodone-acetaminophen 5-325 mg 1 tab PO Q8H 28 days pioglitazone 45 mg PO DAILY 90 days rosuvastatin 10 mg PO DAILY 90 days spironolactone 25 mg PO DAILY 90 days Tobacco use date assessed: 09/22/25 Fall risk assessment: No Falls in past year Last assessed Fall Risk: 09/22/25 Dental Screening Dental Screen Date: 09/22/25 Did you have a dental visit in the last 12 months?: Yes Did you have a dental problem in the last 6 months where you did not have access to dental care?: No Was dental information given to patient?: Patient has dentist HPI HPI Comments History of Present Illness Details This is a 75-year-old female with diabetes mellitus type 2, hypertension, hyperlipidemia, seizures and lumbar degenerative disc disease that comes today for follow-up on her conditions. A1c has improved and is close to goal being the goal 7%. Blood pressure well controlled with a goal less than 130/80. LDL not on goal but she admits not being compliant with statins. Has not had a seizure in over a year. On Percocet for lumbar degenerative disc disease which she is aware can cause addiction and sedation. Complains of chest pain after having losartan and this is why I will decrease the dose and order an EKG. [facility] Medical History (Updated 09/22/25 @ 16:39 by Lena Cheung MD) Myofascial pain Rotator cuff tendonitis Headache Subdural hematoma Insomnia Seizures Lumbar degenerative disc disease Dyslipidemia Essential hypertension Diabetes mellitus Surgical History H/O brain surgery Back pain with history of spinal surgery History of laparoscopic cholecystectomy History of cataract surgery Family History Father Medical history unknown Mother Ovarian cancer Maternal Aunt Breast cancer Sister Ovarian cancer Social History Housing: House Alcohol intake: never Patient Tobacco Use Status: Never used Tobacco e-Cigarette/Vaping Use: Never Used Second Hand Smoke Exposure: No Advance Directives Date on File: 06/14/21 service: No Current occupational status: retired and disabled 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 1. Little interest or pleasure in doing things: more than half the days 2. Feeling down, depressed, or hopeless: not at all 3. Trouble falling or staying asleep, or sleeping too much: several days 4. Feeling tired or having little energy: not at all 5. Poor appetite or overeating: not at all 6. Feeling bad about yourself - or that you are a failure or have let yourself or your family down: not at all 7. Trouble concentrating on things, such as reading the newspaper or watching television: not at all 8. Moving or speaking so slowly that other people could have noticed. Or the opposite - being so fidgety or restless that you have been moving around a lot more than usual: not at all 9. Thoughts that you would be better off or of hurting yourself in some way: not at all Total score: 3 Depression Screening Interpretation: Negative Depression Screening Done: Yes 16579 - PHQ-9 Billing: Yes Source: Developed by Drs. Dillon Dias, Guera Tristan, Yo Miller and colleagues, with an educational aristides from [employer]. Thrive Questionnaire Date Thrive assessed: 05/15/25 I am a: Patient What is your living situation today?: I have a steady place to live Within the past 12 months, did the food you bought not last and you didn't have the money to get more?: Often true Within the past 12 months, did you worry whether your food would run out before you got money to buy more?: Often true Do you have trouble paying for medicines?: No Do you have trouble getting transportation to medical appointments?: No Do you have trouble paying your heating and electricity bill?: No Do you have trouble taking care of your child, family member or friend?: No Do you have trouble with day-to-day activities such as bathing, preparing meals, shopping, managing finances, etc.?: No Are you currently unemployed and looking for a job?: Yes Are you interested in more education?: No Please select the resources that you would like help with: None Currently or been in a relationship where the following occur: I choose not to answer THRIVE Score: 2 AUDIT C Alcohol Use Questionnaire (AUDIT-C) 1. How often do you have a drink containing alcohol?: Never 3. How often do you have six or more drinks on one occasion?: Never Total Score: 0 Score Reviewed/Action Taken: No MARY LOU-7 AMB Questionnaire MARY LOU-7 Date MARY LOU - 7 assessed: 05/15/25 Feeling nervous, anxious, or on edge: 0 = Not at all Not being able to stop or control worryin = Not at all Worrying too much about different things: 0 = Not at all Trouble relaxin = Not at all Being so restless that it is hard to sit still: 0 = Not at all Becoming easily annoyed or irritable: 1 = Several days Feeling afraid as if something awful might happen: 1 = Several days Total MARY LOU-7 score (0-4 normal; 5-9 mild; 10-14 moderate; 15-21 severe): 2 Source: Developed by Drs. Dillon Dias, Guera Tristan, Yo Miller and colleagues, with an educational aristides from [employer]. MARY LOU-7 Assessment Billing MARY LOU-7 Assessment Tool: MARY LOU-7 Assessment [id number] Review of Systems Const All systems reviewed & are unremarkable except as noted in HPI and below Card Denies chest pain at rest, Denies chest pain with activity, Denies edema, Denies irregular heart rhythm, Denies claudication, Denies dyspnea, Denies dyspnea on exertion, Denies orthopnea, Denies paroxysmal nocturnal dyspnea and Denies slow heart rate Resp Denies cough, Denies dyspnea and Denies dyspnea on exertion GI Denies abdominal pain, Denies change in bowel habits, Denies excessive flatus, Denies nausea and Denies vomiting Skin/Breast Denies bleeding lesions, Denies changing lesions and Denies rash Neuro Denies lack of coordination Physical exam (Primary Care) Vital Signs: Last Vital Signs Temp 97.1 F 09/22/25 16:10 Pulse 68 09/22/25 16:10 BP 126/80 09/22/25 16:10 Pulse Ox 95 09/22/25 16:10 Oxygen Delivery Method Room Air 09/22/25 16:10 BMI result Body Mass Index 25.1 Tobacco/Smoking Status: Tobacco use Status Tobacco use date assessed 09/22/25 09/22/25 16:14 Patient Tobacco Use Status Never used Tobacco 09/22/25 16:09 e-Cigarette/Vaping Use Never Used 09/22/25 16:09 PHQ-9: PHQ-9 Score PHQ-9: Total score 3 09/22/25 16:44 Depression Screening Interpretation: Negative Thrive Assessment: Date of Thrive Assessment Date Thrive assessed 05/15/25 09/22/25 16:09 Currently or been in a relationship where the following occur: I choose not to answer Resp Effort & Inspection: normal respiratory effort Auscultation: clear to auscultation bilaterally Cardio Jugular venous distension: no JVD Rate: regular rate Rhythm: regular rhythm Heart sounds: S1 normal heart sound present and S2 normal heart sound present Extrem General: Yes full ROM Results AMB Hemoglobin A1c AMB Hemoglobin A1c 7.4 % Last Edit by Christi Leiva CMA on 09/22/25 16:20 Results Reviewed Results Reviewed: Laboratory Last Values Hgb A1c (Clinic) 7.4 % (4.0-6.0) H 09/22/25 16:15 Coding Level of Care Code Add On Preventative Visit Only Diagnoses Type 2 diabetes mellitus without complication, without long-term current use of insulin E11.9 Diabetes mellitus type: type 2 Diabetes mellitus fpc insulin use: without fpc use Diabetes mellitus complication status: without complication Hyperlipidemia LDL goal <70 E78.5 Essential hypertension I10 Seizures R56.9 Lumbar degenerative disc disease M51.36 Additional Codes MARY LOU-7 Assessment Billing - MARY LOU-7 Assessment Tool: MARY LOU-7 Assessment [id number] ([id number]) PHQ-9 - 31809 - PHQ-9 Billing: Yes ([id number]) Time Spent (min) 23 Assessment & Plan Assessment & Plan (1) Diabetes mellitus: Code(s): E11.9 - Type 2 diabetes mellitus without complications Category: Medical Qualifiers: Diabetes mellitus type: type 2 Diabetes mellitus watermaster insulin use: without watermaster use Diabetes mellitus complication status: without complication Qualified Code(s): E11.9 - Type 2 diabetes mellitus without complications (2) Hyperlipidemia LDL goal <70: Code(s): E78.5 - Hyperlipidemia, unspecified Category: Medical (3) Essential hypertension: Code(s): I10 - Essential (primary) hypertension Category: Medical (4) Seizures: Code(s): R56.9 - Unspecified convulsions Category: Medical (5) Lumbar degenerative disc disease: Code(s): M51.36 - Other intervertebral disc degeneration, lumbar region Category: Medical Plan Decrease losartan to 50 mg. EKG ordered. Continue all the other medications as prescribed. Be compliant with statins. Blood pressure goal is equal or less than 130/80. A1c goal is equal or less than 7%. LDL goal is less than 70. Continue Percocet as needed for lumbar degenerative disc disease. Orders: Orders AMB Hemoglobin A1c Today Z13.9 - Encounter for screening, unspecified ECG 12 lead EKG Today R07.9 - Chest pain, unspecified Vitamin B12 and Folate 4 Months E53.8 - Deficiency of other specified B group vitamins Lipid Panel 4 Months E78.5 - Hyperlipidemia, unspecified Microalbumin, Random (w Creat) 4 Months R80.9 - Proteinuria, unspecified Comprehensive [place]. Panel Fast 4 Months E11.9 - Type 2 diabetes mellitus without complications Vitamin D 25-OH Total 4 Months E55.9 - Vitamin D deficiency, unspecified Complete Blood Count Auto Diff 4 Months D64.9 - Anemia, unspecified IRON PROFILE 4 Months D64.9 - Anemia, unspecified Medications: New losartan 50 mg PO DAILY 90 tabs 1RF 90 days Discontinued losartan Discontinued Reason: Patient Completed Course 100 mg PO DAILY 90 days 90 tabs 1RF
[2025-09-22 16:10] VITALS: BP 126/80; PULSE 68; TEMP 36.2; O2SAT 95; BMI 25.1
== END 2025-09-22 16:43 | disposition home or self-care (01) ==
LOC: HO.HMCH 16:04
PROVIDERS: PCP Internal Medicine; Visit Provider Internal Medicine
DX: E11.9 Type 2 diabetes mellitus without complications (principal); E78.5 Hyperlipidemia, unspecified; I10 Essential (primary) hypertension; R56.9 Unspecified convulsions; M51.369 Other intervertebral disc degeneration, lumbar region without mention of lumbar back pain or lower extremity pain; Z13.9 Encounter for screening, unspecified

== ENCOUNTER → 2025-09-22 16:03 | Outpatient (BNVA) | payer OTHER, SELFPAY | PROVIDERS: PCP Internal Medicine; Visit Provider Internal Medicine | DX: E11.9 Type 2 diabetes mellitus without complications (principal); E78.5 Hyperlipidemia, unspecified; I10 Essential (primary) hypertension; R56.9 Unspecified convulsions; M51.360 Other intervertebral disc degeneration, lumbar region with discogenic back pain only; Z13.31 Encounter for screening for depression | CPT/HCPCS: 83036; 96127; 99212 ==